=== PATIENT | female | born 1980 ===

== ENCOUNTER 2020-08-18 16:50 | Emergency (ER) | payer MEDICAID, SELFPAY ==
[2020-08-18 17:50] VITALS: BP 108/60; PULSE 85; RESP 16; TEMP 36.7; O2SAT 100; BMI 37.1
--- NOTE | 2020-08-18 19:23 | ED_ITS ---
HPI - Skin/Abscess/Foreign Bdy General Chief complaint: Wound/Laceration <RUI Vargas - Last Filed: 08/18/20 19:29> Stated complaint: ABSCESS <RUI Vargas - Last Filed: 08/18/20 19:29> Time Seen by Provider: 08/18/20 18:51 <RUI Vargas - Last Filed: 08/18/20 19:29> Source: patient <RUI Vargas - Last Filed: 08/18/20 19:29> Mode of arrival: ambulatory <RUI Vargas - Last Filed: 08/18/20 19:29> History of Present Illness HPI narrative: 39 y/o female with right axillary abscess x4 days. History of the same, ususally drains on their own at home but this one is getting more painful. No fever or chills. <RUI Vargas - Last Filed: 08/18/20 19:29> MD complaint: abscess/boil <RUI Vargas - Last Filed: 08/18/20 19:29> Tetanus up to date: yes <RUI Vargas - Last Filed: 08/18/20 19:29> Location: LLE <RUI Vargas - Last Filed: 08/18/20 19:29> Severity: moderate <RUI Vargas - Last Filed: 08/18/20 19:29> Quality: burning and aching <RUI Vargas Last Filed: 08/18/20 19:29> Pain Consistency: constant <RUI Vargas - Last Filed: 08/18/20 19:29> Relieving factors: none <RUI Vargas - Last Filed: 08/18/20 19:29> Exacerbating factors: palpation and movement <RUI Vargas - Last Filed: 08/18/20 19:29> Context: none <RUI Vargas Last Filed: 08/18/20 19:29> Associated symptoms: denies other symptoms <RUI Vargas - Last Filed: 08/18/20 19:29> Treatments prior to arrival: none <RUI Vargas - Last Filed: 08/18/20 19:29> Related Data Home medications: Previous Rx's Medication Instructions Recorded cephalexin [Keflex] 500 mg PO QID #28 cap 08/18/20 doxycycline monohydrate 100 mg PO BID #14 cap 08/18/20 <RUI Vargas - Last Filed: 08/18/20 19:29> Allergies/Adverse reactions: Allergies Allergy/AdvReac Type Severity Reaction Status Date / Time midodrine [MIDODRINE] Allergy Severe HIGHER Verified 08/18/20 19:46 DOSES 40MG NUMBNESS AND SOB lisinopril [LISINOPRIL] Allergy Intermediate UPSET Unverified 08/03/20 16:26 STOMACH <RUI Vargas - Last Filed: 08/18/20 19:29> Review of Systems Review of Systems: Yes all other systems are reviewed and are negative <RUI Vargas - Last Filed: 08/18/20 19:29> [facility] Past Medical History Attestation statement: The following information was validated with the patient. <RUI Vargas - Last Filed: 08/18/20 19:29> Medical History: Medical History (Updated 08/19/20 @ 00:01 by Apollo Barr) Cyst of perianal area <RUI Vargas - Last Filed: 08/18/20 19:29> Surgical History: Surgical History (Updated 08/18/20 @ 17:54 by Renuka Alvarez) History of heart artery stent Tubal ligation status <RUI Vargas - Last Filed: 08/18/20 19:29> Social History Social History: Social History Alcohol intake: never Smoked in Last 30 Days: No Advance Directives: No Advance Directives Information Provided: No <RUI Vargas - Last Filed: 08/18/20 19:29> Physical Exam Vital Signs and I&O and Narrative: Vital Signs and I&O: Vital Signs Temp 98.0 F 08/18/20 17:50 Pulse 85 08/18/20 17:50 Resp 16 08/18/20 17:50 BP 108/60 08/18/20 17:50 Pulse Ox 100 08/18/20 17:50 Intake & Output 1008/18/20 08/19/20 06:59 18:59 06:59 Weight 104.326 kg Body Mass Index 37.1 Appearance: Alert. Oriented X3. No acute distress. Eyes: Pupils equal, round and reactive to light. ENT: Pharynx normal. Neck: Normal inspection. Neck supple. Left axilla: 3cm x3cm tender abscess with fluctuation and surrounding cellultis, no lymphangtiis. full ROM of left arm. NV intact. no evidence of deep tissue infeciton CVS: Normal heart rate and rhythm. Pulses normal. Respiratory: No respiratory distress. Breath sounds normal. Abdomen: Soft and nontender. Skin: Skin warm and dry. Normal skin color. Normal skin turgor. Extremities: No lower extremity edema. No lower extremity edema. Neuro: Oriented X 3. No motor deficit. No sensory deficit. <RUI Vargas Last Filed: 08/18/20 19:29> Vital Signs and I&O: Vital Signs Temp 98.0 F 08/18/20 17:50 Pulse 85 08/18/20 17:50 Resp 16 08/18/20 17:50 BP 108/60 08/18/20 17:50 Pulse Ox 100 08/18/20 17:50 Intake & Output 08/18/20 08/18/20 08/19/20 06:59 18:59 06:59 Weight 104.326 kg Body Mass Index 37.1 <Rian Nicole DO - Last Filed: 08/19/20 02:23> Course Course Hospital Course: left exillary abscess amenable to drainage, see I&D note <RUI Vargas Last Filed: 08/18/20 19:29> Procedures Abscess I/D Site: upper extremity (left axilla ) <RUI Vargas Last Filed: 08/18/20 19:29> Side (if applicable): left <RUI Vargas Last Filed: 08/18/20 19:29> Local Anesthetic: lidocaine 2% <RUI Vargas Last Filed: 08/18/20 19:29> Amount of anesthesia used (mL): 2 <RUI Vargas Last Filed: 08/18/20 19:29> Technique: incised with blade <RUI Vargas - Last Filed: 08/18/20 19:29> Sent for culture/gram staining?: No <RUI Vargas - Last Filed: 08/18/20 19:29> Irrigation: Yes <RUI Vargas - Last Filed: 08/18/20 19:29> Packing used?: none <RUI Vargas - Last Filed: 08/18/20 19:29> MDM - Skin/Abscess/Foreign Bdy Differential Diagnosis Differential diagnosis: Likely abscess of skin or subcutaneous tissue, allergic reaction to drug, cellulitis and insect bites <RUI Vargas - Last Filed: 08/18/20 19:29> Medical Records Attestation: I reviewed the patient's medical records. <RUI Vargas - Last Filed: 08/18/20 19:29> Discharge Plan Discharge Clinical Impression: Abscess <RUI Vargas - Last Filed: 08/18/20 19:29> Patient Disposition: Home, Self-Care <RUI Vargas - Last Filed: 08/18/20 19:29> Instructions: Abscess Incision and Drainage (DC) <RUI Vargas - Last Filed: 08/18/20 19:29> Additional Instructions: Use warm compresses several times per day to help facilitate addtional drainage. Monitor for worsening infection - increased redness, warmth, pain <RUI Vargas - Last Filed: 08/18/20 19:29> Prescriptions: New doxycycline monohydrate 100 mg capsule 100 mg PO BID Qty: 14 RF: 0 cephalexin [Keflex] 500 mg capsule 500 mg PO QID Qty: 28 RF: 0 <RUI Vargas - Last Filed: 08/18/20 19:29> Interventions: ED Discharge Assessment Last Done: 08/18/20 19:49 <RUI Vargas - Last Filed: 08/18/20 19:29> Discharge Date/Time: 08/18/20 19:50 <RUI Vargas - Last Filed: 08/18/20 19:29>
[2020-08-18] MEDS: Lidocaine HCl 2 % MPF 5 ML VIAL INFILTRATI (19:47)
[2020-08-18] MEDS: cephALEXin 500 MG CAPSULE PO (19:48)
== END 2020-08-18 19:50 | disposition home or self-care (01) ==
PROVIDERS: Emergency Provider Emergency Medicine; PCP Internal Medicine
DX: L02.412 Cutaneous abscess of left axilla (principal)
CPT/HCPCS: 10060; 99283; 99284

== ENCOUNTER 2020-08-22 11:02 | Emergency (ER) | payer MEDICAID, SELFPAY ==
[2020-08-22 11:09] VITALS: BP 111/76; PULSE 79; RESP 16; TEMP 36.3; O2SAT 99; BMI 37.1
--- NOTE | 2020-08-22 11:22 | ED_ITS ---
HPI - Skin/Abscess/Foreign Bdy General Chief complaint: Skin/Abscess/Foreign Body Stated complaint: wound check Time Seen by Provider: 08/22/20 11:15 Source: patient Mode of arrival: ambulatory Limitations: no limitations History of Present Illness HPI narrative: Pt tells me she was seen here friday for abscess to left axillae. She had an I&D and was started in keflex and doxycyline. Denies fevers/chills/erythema. Tells me she still feels a bump underneath the skin MD complaint: abscess/boil Onset (ago): day(s) Tetanus up to date: yes Location: LUE Severity: mild Related Data Previous Rx's Medication Instructions Recorded cephalexin [Keflex] 500 mg PO QID #28 cap 08/18/20 doxycycline monohydrate 100 mg PO BID #14 cap 08/18/20 Allergies Allergy/AdvReac Type Severity Reaction Status Date / Time midodrine [MIDODRINE] Allergy Severe HIGHER Verified 08/18/20 19:46 DOSES 40MG NUMBNESS AND SOB lisinopril [LISINOPRIL] Allergy Intermediate UPSET Unverified 08/03/20 16:26 STOMACH Review of Systems Review of Systems: Yes all other systems are reviewed and are negative Constitutional: Constitutional: Reports no additional constitutional complaints, Denies body ache(s), Denies chills, Denies fever(s) and Denies weakness Eyes: Eyes: Reports no additional eye complaints and Denies blurry vision ENT: Reports system reviewed and no additional complaints, except as documented, Denies dizziness, Denies nasal congestion and Denies nasal discharge Cardiovascular: Cardiovascular: Reports no additional cardiovascular complaints, Denies chest pain, Denies leg edema and Denies dyspnea Respiratory: Respiratory: Reports no additional respiratory complaints, Denies cough and Denies dyspnea Gastrointestinal: Gastrointestinal: Reports no additional gastrointestinal complaints, Denies abdominal pain, Denies diarrhea, Denies nausea and Denies vomiting Musculoskeletal: Musculoskeletal: Reports no additional musculoskeletal complaints, Denies back pain, Denies myalgias, Denies arthralgias, Denies joint swelling, Denies numbness and Denies tingling Integumentary/Breasts: Skin/Breast: Reports system reviewed and no additional complaints, except as docu and Denies rash Neurologic: Reports system reviewed and no additional complaints, except as documented, Denies Abnormal speech present, Denies dizziness, Denies numbness, Denies tingling and Denies weakness PMF Past Medical History Attestation statement: The following information was validated with the patient. Source: obtained from family and nursing notes reviewed Medical History Cyst of perianal area Surgical History History of heart artery stent Tubal ligation status Social History Social History Alcohol intake: never Smoking Status: Never smoker Use of substances other than those prescribed or required for medical reasons: No Advance Directives: No Advance Directives Information Provided: Yes Physical Exam Vital Signs and I&O and Narrative: Vital Signs and I&O: Vital Signs Temp 97.3 F 08/22/20 11:09 Pulse 79 08/22/20 11:09 Resp 16 08/22/20 11:09 BP 111/76 08/22/20 11:09 Pulse Ox 99 08/22/20 11:09 Intake & Output 08/21/20 08/22/20 08/22/20 18:59 06:59 18:59 Weight 104.326 kg Body Mass Index 37.1 Const: General: cooperative, healthy appearing, comfortable and no acute distress Orientation/consciousness: patient oriented x3 Limitations: no limitations HENMT: Head: Yes normal to inspection Ears: hearing grossly normal bilaterally General nose exam: Normal external nose present Face and sinus: Yes normal facial exam Mouth: Normal oral and palatal mucosa present Throat: Yes posterior oropharynx normal Eyes: General: appearance normal, both eyes and all related structures Pupils: Equal, round and reactive pupils present Neck: Neck: Yes normal visual inspection Chest: Chest palpation & inspection: normal inspection of the chest Resp: Effort & Inspection: normal respiratory effort Auscultation: clear to auscultation bilaterally Cardio: Rate: regular rate Rhythm: regular rhythm Peripheral pulses: Peripheral pulses 2+ throughout GI: Inspection: Yes normal to inspection Palpation (GI): Soft to palpation and nontender Auscultation: normal bowel sounds Back/Spine/Pelvis: Thoracic/Lumbar Spine: thoracic and lumbar spine normal to inspection Skin: Other: firm abscess noted at left axillae. No fluctuance, erythema or induration. General skin exam: no rashes or lesions noted Neuro: General: patient oriented x3, no focal motor deficits and normal sensation to monofilament Cranial nerves: Yes Equal, round and reactive pupils present Cognition (Neuro): normal cognition Speech: No Abnormal speech present Gait exam (Neuro): Normal gait present Motor exam (neuro): 5/5 motor strength present throughout Extrem: General: Yes normal to inspection MDM - Skin/Abscess/Foreign Bdy MDM Narrative Medical decision making narrative: Patient has continued abscess at left axillae. No fluctuance/pointing or surround erythema. Cannot I&D at this point. Has not been doing warm compresses. Recommend this and continuing antibiotics. Patient tells me recurrent abscesses in axilla. Will refer to surgery. Reviewed worrisome signs/symptoms with patient and when to return to ED. Comfortable with discharge home. Discharge Plan Discharge Clinical Impression: Abscess of skin or subcutaneous tissue Qualifiers: Site of cutaneous abscess of extremity: axilla Laterality: left Patient Disposition: Home, Self-Care Instructions: Abscess Follow-up (ED), Hidradenitis Suppurativa (ED) Additional Instructions: Continue your antibiotics Warm compresses with tea bag or warm washcloth 4 times daily Prescriptions: No Action doxycycline monohydrate 100 mg capsule 100 mg PO BID Qty: 14 RF: 0 cephalexin [Keflex] 500 mg capsule 500 mg PO QID Qty: 28 RF: 0 Referrals: Eugenie Gonzales MD [Physician] - 5 days Print Language: Armenian
== END 2020-08-22 11:31 | disposition home or self-care (01) ==
PROVIDERS: Emergency Provider Emergency Medicine; PCP Internal Medicine
DX: L02.412 Cutaneous abscess of left axilla (principal); M79.602 Pain in left arm
CPT/HCPCS: 99282; 99284

== ENCOUNTER 2020-09-25 08:49 | Emergency (ER) | payer MEDICAID, SELFPAY ==
--- NOTE | 2020-09-25 08:58 | ED.URI ---
HPI - URI/Sore Throat General Chief Complaint: Fever Stated Complaint: covid test Time Seen by Provider: 09/25/20 08:56 Source: patient Mode of arrival: ambulatory Limitations: no limitations History of Present Illness MD elicited complaint: fever and nasal congestion Onset (ago): week(s) (1) Consistency: constant Severity: moderate Description of mucous: clear Able to tolerate fluids by mouth: Yes Associated symptoms: fever, myalgias, headache, rhinorrhea and diarrhea Treatments prior to arrival: acetaminophen and cold medicine Related Data Previous Rx's Medication Instructions Recorded cephalexin [Keflex] 500 mg PO QID #28 cap 08/18/20 doxycycline monohydrate 100 mg PO BID #14 cap 08/18/20 ibuprofen 600 mg PO Q6H PRN #30 tab 09/25/20 Allergies Allergy/AdvReac Type Severity Reaction Status Date / Time midodrine [MIDODRINE] Allergy Severe HIGHER Verified 08/18/20 19:46 DOSES 40MG NUMBNESS AND SOB lisinopril [LISINOPRIL] Allergy Intermediate UPSET Unverified 08/03/20 16:26 STOMACH Review of Systems Review of Systems: Constitutional : positive Fever, positive Chills, positive fatigue, positive Malaise ENT/Mouth : no sore throat, positive runny nose Eyes: No Discharge Cardiovascular : No Chest Pain, pos SOB Respiratory : No Cough, No Sputum Gastrointestinal : No Nausea, No Vomiting, pos Diarrhea Genitourinary : No Dysuria, No Urinary Frequency Musculoskeletal : positive Myalgia Skin : No rash Neuro : pos Headache All other systems reviewed and are negative REPLACED BY [facility] Past Medical History Attestation statement: The following information was validated with the patient. Medical History CHF (congestive heart failure) Cyst of perianal area Surgical History History of heart artery stent Tubal ligation status Social History Social History Alcohol intake: never Smoking Status: Never smoker Advance Directives: No Advance Directives Information Provided: No Physical Exam Vital Signs: Vital Signs: Last Vital Signs Temp 100.2 F 09/25/20 09:20 Pulse 113 H 09/25/20 09:20 Resp 20 09/25/20 09:20 BP 102/68 09/25/20 09:20 Pulse Ox 98 09/25/20 09:20 Body Mass Index 37.1 Appearance: Alert. Oriented X3. No acute distress. Eyes: Pupils equal, round and reactive to light. ENT: Pharynx normal. Neck: Normal inspection. Neck supple. CVS: Normal heart rate and rhythm. Pulses normal. Respiratory: No respiratory distress. Breath sounds normal. Abdomen: Soft and nontender. Skin: Skin warm and dry. Normal skin color. Normal skin turgor. Extremities: No lower extremity edema. Normal ROM Neuro: Oriented X 3. No motor deficit. No sensory deficit. Course Course Course Narrative: clear lungs, CXR negative, PO medications, no hypoxia MDM - URI/Sore Throat MDM Narrative Medical decision making narrative: 39 yo female with CHF here with 1 week of fevers, myalgias, URI, diarrhea x 1 - likely viral in nature, COVID test ordered, also c/o some fatigue and feeling short of breath, no hypoxia ECG Data Attestation: I personally reviewed and interpreted this ECG as follows: ECG interpretation date: 09/25/20 ECG interpretation time: 09:32 Interpretation: Rate: 99 Rhythm: NSR [place]: normal Normal P waves. Normal PAUL. low voltage QRS complex. ST T wave : nonspecific qTC: normal prior studies: no change 2017 The study has been interpreted contemporaneously by me. . Discharge Plan Discharge Clinical Impression: Viral infection Patient Disposition: Home, Self-Care Instructions: COVID-19 (Coronavirus Disease 2019) (ED) Additional Instructions: return to ED for any worsening symptoms or concerns you were tested for COVID we will call you with results in 2 to 4 days, wear a mask, socially distance YOUR SYMPTOMS ARE VERY CONCERNING FOR COVID - RETURN IF YOU HAVE A HARD TIME BREATHING YOUR CHEST XRAY AND EKG WERE UNREMARKABLE Prescriptions: New ibuprofen 600 mg tablet 600 mg PO Q6H PRN (Reason: pain) Qty: 30 RF: 0 No Action doxycycline monohydrate 100 mg capsule 100 mg PO BID Qty: 14 RF: 0 cephalexin [Keflex] 500 mg capsule 500 mg PO QID Qty: 28 RF: 0 Referrals: Negra Foster MD [Primary Care Provider] - 2 days (if not better)
--- NOTE | 2020-09-25 09:05 | XR_ITS ---
EXAMINATION: XR CHEST CLINICAL INFORMATION: Cough COMPARISON: Chest radiographs 11/05/2017, 06/03/2015 TECHNIQUE: Portable upright AP view of the chest was obtained. FINDINGS: The lungs appear clear with no airspace consolidation or definite groundglass opacity. Heart is within normal size. The vascularity is normal. There is no effusion. The hilar and mediastinal contours and bony structures are unremarkable. XR/XR chest 1V IMPRESSION: Unremarkable examination.
--- NOTE | 2020-09-25 09:05 | ECG_ITS ---
Test Reason : PAIN Blood Pressure : / mmHG Vent. Rate : 099 BPM Atrial Rate : 099 BPM P-R Int : 120 ms QRS Dur : 076 ms QT Int : 328 ms P-R-T Axes : 008 -25 003 degrees QTc Int : 420 ms Normal sinus rhythm Low voltage QRS Inferior infarct (cited on or before 28-MAR-2011) Cannot rule out Anterior infarct (cited on or before 04-DEC-2009) Nonspecific T wave abnormality Anterolateral leads Abnormal ECG When compared with ECG of 05-NOV-2017 20:31, T wave inversion less evident in Anterior leads Referred By: Doretha Echevarria Electronically Signed By:KIAH DALAL MD
[2020-09-25 09:20] VITALS: BP 102/68; PULSE 113; RESP 20; TEMP 37.9; O2SAT 98; BMI 37.1
[2020-09-25] MEDS: Ibuprofen 400 MG TABLET PO (10:13)
[2020-09-25] MEDS: Acetaminophen 325 MG TABLET 650 MG PO (10:14)
== END 2020-09-25 10:34 | disposition home or self-care (01) ==
PROVIDERS: Emergency Provider Emergency Medicine; PCP Internal Medicine
DX: B34.9 Viral infection, unspecified (principal); R50.9 Fever, unspecified; Z20.828 Contact with and (suspected) exposure to other viral communicable diseases; Z79.899 Other long term (current) drug therapy
CPT/HCPCS: 71045; 93005; 99283; U0003

== ENCOUNTER 2021-03-19 17:41 | Emergency (ER) | payer MEDICAID, SELFPAY ==
[2021-03-19 18:03] VITALS: BP 129/72; PULSE 90; RESP 16; TEMP 37.2; O2SAT 100; BMI 36.3
--- NOTE | 2021-03-19 21:27 | ED_ITS ---
HPI - URI/Sore Throat General Chief Complaint: Upper Respiratory Symptoms Stated Complaint: stuffy nose, weakness Time Seen by Provider: 03/19/21 21:21 Source: patient Mode of arrival: ambulatory Limitations: no limitations History of Present Illness HPI Narrative: Patient comes emergency room complaining nasal congestion for 2 days, and mild sore throat for a few hours. Patient denies fever, no chills, denies any previous respiratory illnesses. Denies cough, no chest pain, no shortness of breath. MD elicited complaint: sore throat and nasal congestion Related Data Previous Rx's Medication Instructions Recorded cephalexin [Keflex] 500 mg PO QID #28 cap 08/18/20 doxycycline monohydrate 100 mg PO BID #14 cap 08/18/20 ibuprofen 600 mg PO Q6H PRN #30 tab 09/25/20 fluticasone propionate [Flonase 1 spray INTRANASAL Q12H #16 g 03/19/21 Allergy Relief] Allergies Allergy/AdvReac Type Severity Reaction Status Date / Time midodrine [MIDODRINE] Allergy Severe HIGHER Verified 03/19/21 18:03 DOSES 40MG NUMBNESS AND SOB lisinopril [LISINOPRIL] Allergy Intermediate UPSET Verified 03/19/21 18:03 STOMACH Review of Systems Review of Systems: Constitutional : No Weight loss, No Fever, No Chills, No Night Sweats, No Fatigue, No Malaise ENT/Mouth : No Hearing loss, No Ear Pain, complaining of Nasal Congestion, No Sinus Pain, No Hoarseness, mild sore throat, No Rhinorrhea, No Swallowing Difficulty Eyes: No Eye Pain, No Swelling, No Redness, No Foreign Body, No Discharge, No Vision Changes Cardiovascular : No Chest Pain, No SOB, No Dyspnea on Exertion, No Orthopnea, No Edema, No Palpitations Respiratory : No Cough, No Sputum, No Wheezing, No Smoke Exposure, No Dyspnea Gastrointestinal : No Nausea, No Vomiting, No Diarrhea, No Constipation, No abdominal Pain, No Hematochezia, No Melena Genitourinary : no irregular bleeding, No Dysuria, No Urinary Frequency, No Hematuria, No Urinary Incontinence, No Urgency, No Flank Pain, No Urinary Flow Changes, No Hesitancy Musculoskeletal : No joint pain, No Myalgias, No Joint Swelling Skin : No Skin Lesions, No rash Neuro : No Weakness, No Numbness, No Paresthesias, No Loss of Consciousness, No Dizziness, No Headache Psych : No Anxiety/Panic, No Depression, No SI/HI/AH/VH, No Social Issues, Heme/Lymph: No Bruising, No Bleeding,No Lymphadenopathy Endocrine : No Polyuria, No Polydipsia, No Temperature Intolerance [facility] Past Medical History Medical History CHF (congestive heart failure) Cyst of perianal area Surgical History History of heart artery stent Tubal ligation status Social History Social History Alcohol intake: never Smoking Status: Never smoker Advance Directives: No Advance Directives Information Provided: Yes Patient : No Physical Exam Vital Signs: Vital Signs: Last Vital Signs Temp 98.9 F 03/19/21 18:03 Pulse 90 03/19/21 18:03 Resp 16 03/19/21 18:03 BP 129/72 03/19/21 18:03 Pulse Ox 100 03/19/21 18:03 Body Mass Index 36.3 Appearance: Alert. Oriented X3. No acute distress. Eyes: Pupils equal, round and reactive to light. ENT: Pharynx normal. Showed no exudates, no abscesses. Nasal congestion Neck: Normal inspection. Neck supple. No lymph nodes noted. No crepitus CVS: Normal heart rate and rhythm. Pulses normal. Normal S1 and S2 Respiratory: No respiratory distress. Breath sounds normal. No Wheezing. No rales Abdomen: Soft and nontender. No rigidity. No distention. good BS x4 Skin: Skin warm and dry. Normal skin color. Normal skin turgor. Extremities: No lower extremity edema. No lower extremity edema. No Lacerations. No Rash Neuro: Oriented X 3. No motor deficit. No sensory deficit. Moving all extermities. No slurred speech. Course Course Course Narrative: Patient likely having a viral upper respiratory infection, COVID-19 test negative. MDM - URI/Sore Throat Lab Data Labs: Lab Results 03/19/21 Range/Units 21:36 Coronavirus (PCR) NEGATIVE (Negative) Influenza Type A (PCR) NEGATIVE (Negative) Influenza Type B (PCR) NEGATIVE (Negative) RSV RNA Qual (PCR) NEGATIVE (Negative) Discharge Plan Discharge Clinical Impression: Viral URI Patient Disposition: Home, Self-Care Instructions: Viral Syndrome (ED) Additional Instructions: Please follow-up with your primary care physician tomorrow. If you have any worsening or new symptoms, please return to the emergency room or call 911 Prescriptions: New fluticasone propionate [Flonase Allergy Relief] 50 mcg/actuation spray,suspension 1 spray intranasal Q12H Qty: 16 RF: 0 No Action doxycycline monohydrate 100 mg capsule 100 mg PO BID Qty: 14 RF: 0 cephalexin [Keflex] 500 mg capsule 500 mg PO QID Qty: 28 RF: 0 ibuprofen 600 mg tablet 600 mg PO Q6H PRN (Reason: pain) Qty: 30 RF: 0
[2021-03-19 22:23] LABS: Influenza A PCR NEGATIVE (Negative); Influenza B PCR NEGATIVE (Negative); Resp Syncy Virus RNA Qual PCR NEGATIVE (Negative); SARS COV2 PCR INHOUSE NEGATIVE (Negative)
== END 2021-03-19 22:38 | disposition home or self-care (01) ==
PROVIDERS: Emergency Provider Emergency Medicine; PCP Internal Medicine
DX: J06.9 Acute upper respiratory infection, unspecified (principal); R09.81 Nasal congestion; Z20.822 Contact with and (suspected) exposure to COVID-19; Z79.899 Other long term (current) drug therapy
CPT/HCPCS: 0241U; 36415; 99283

== ENCOUNTER 2021-05-07 16:48 | Emergency (ER) | payer MEDICAID, SELFPAY ==
[2021-05-07 16:54] VITALS: BP 109/69; PULSE 95; RESP 18; TEMP 36.6; O2SAT 99; BMI 36.9
--- NOTE | 2021-05-07 18:00 | ED.SKABFB ---
HPI - Skin/Abscess/Foreign Bdy General Chief complaint: Skin/Abscess/Foreign Body Stated complaint: Spider bite to breast Time Seen by Provider: 05/07/21 17:45 Source: patient Mode of arrival: ambulatory Limitations: no limitations History of Present Illness HPI narrative: Patient comes emergency room complaining of an abscess on the right breast. Patient believes that this is a spider bite, states she has had them before multiple times. Patient states her gets them as well. Patient has a small abscesses that is mildly draining for the last 3 days. Patient complaining of localized pain, no fever or chills. No other wounds Related Data Previous Rx's Medication Instructions Recorded cephalexin [Keflex] 500 mg PO QID #28 cap 08/18/20 doxycycline monohydrate 100 mg PO BID #14 cap 08/18/20 ibuprofen 600 mg PO Q6H PRN #30 tab 09/25/20 fluticasone propionate [Flonase 1 spray INTRANASAL Q12H #16 g 03/19/21 Allergy Relief] cephalexin [Keflex] 750 mg PO BID #14 cap 05/07/21 doxycycline hyclate 100 mg PO BID #14 tab 05/07/21 Allergies Allergy/AdvReac Type Severity Reaction Status Date / Time midodrine [MIDODRINE] Allergy Severe HIGHER Verified 03/19/21 18:03 DOSES 40MG NUMBNESS AND SOB lisinopril [LISINOPRIL] Allergy Intermediate UPSET Verified 03/19/21 18:03 STOMACH Review of Systems Review of Systems: Constitutional : No Weight loss, No Fever, No Chills, No Night Sweats, No Fatigue, No Malaise ENT/Mouth : No Hearing loss, No Ear Pain, No Nasal Congestion, No Sinus Pain, No Hoarseness, No sore throat, No Rhinorrhea, No Swallowing Difficulty Eyes: No Eye Pain, No Swelling, No Redness, No Foreign Body, No Discharge, No Vision Changes Cardiovascular : No Chest Pain, No SOB, No Dyspnea on Exertion, No Orthopnea, No Edema, No Palpitations Respiratory : No Cough, No Sputum, No Wheezing, No Smoke Exposure, No Dyspnea Gastrointestinal : No Nausea, No Vomiting, No Diarrhea, No Constipation, No abdominal Pain, No Hematochezia, No Melena Genitourinary : no irregular bleeding, No Dysuria, No Urinary Frequency, No Hematuria, No Urinary Incontinence, No Urgency, No Flank Pain, No Urinary Flow Changes, No Hesitancy Musculoskeletal : No joint pain, No Myalgias, No Joint Swelling Skin : Abscess on the right breast Neuro : No Weakness, No Numbness, No Paresthesias, No Loss of Consciousness, No Dizziness, No Headache Psych : No Anxiety/Panic, No Depression, No SI/HI/AH/VH, No Social Issues, Heme/Lymph: No Bruising, No Bleeding,No Lymphadenopathy Endocrine : No Polyuria, No Polydipsia, No Temperature Intolerance [facility] Past Medical History Medical History CHF (congestive heart failure) Cyst of perianal area Surgical History History of heart artery stent Tubal ligation status Social History Social History Alcohol intake: never Advance Directives: No Advance Directives Information Provided: Yes Patient : No Physical Exam Vital Signs: Vital Signs: Last Vital Signs Temp 98 F 05/07/21 16:54 Pulse 95 05/07/21 16:54 Resp 18 05/07/21 16:54 BP 109/69 05/07/21 16:54 Pulse Ox 99 05/07/21 16:54 Body Mass Index 36.9 Appearance: Alert. Oriented X3. No acute distress. Eyes: Pupils equal, round and reactive to light. ENT: Pharynx normal. Neck: Normal inspection. Neck supple. No lymph nodes noted. No crepitus CVS: Normal heart rate and rhythm. Pulses normal. Normal S1 and S2 Respiratory: No respiratory distress. Breath sounds normal. No Wheezing. No rales Abdomen: Soft and nontender. No rigidity. No distention. good BS x4 Skin: Skin warm and dry. On the breath, there is a 0.5 cm small ulceration, draining small amount of pus, surrounding erythema 1 cm around ulceration. Extremities: No lower extremity edema. No lower extremity edema. No Lacerations. No Rash Neuro: Oriented X 3. No motor deficit. No sensory deficit. Moving all extermities. No slurred speech. Course Course Course Narrative: Bedside ultrasound shows that the of this is fairly superficial, the abscess was drained by breaking the skin with the tip of the needle, small amount of pus was drained. Patient will start antibiotics. Procedures Abscess I/D Site: other (Right breast) Side (if applicable): right Technique: other (Incise the tip of the needle G 18) Amount of fluid expressed (mL): 0 Sent for culture/gram staining?: No Irrigation: No Packing used?: none Complications: other Discharge Plan Discharge Clinical Impression: Abscess of skin or subcutaneous tissue Qualifiers: Site of cutaneous abscess: other site Qualified Code(s): L02.818 - Cutaneous abscess of other sites Patient Disposition: Home, Self-Care Instructions: Abscess (ED) Prescriptions: New cephalexin [Keflex] 750 mg capsule 750 mg PO BID Qty: 14 RF: 0 doxycycline hyclate 100 mg tablet 100 mg PO BID Qty: 14 RF: 0 No Action doxycycline monohydrate 100 mg capsule 100 mg PO BID Qty: 14 RF: 0 cephalexin [Keflex] 500 mg capsule 500 mg PO QID Qty: 28 RF: 0 ibuprofen 600 mg tablet 600 mg PO Q6H PRN (Reason: pain) Qty: 30 RF: 0 fluticasone propionate [Flonase Allergy Relief] 50 mcg/actuation spray,suspension 1 spray intranasal Q12H Qty: 16 RF: 0
== END 2021-05-07 18:25 | disposition home or self-care (01) ==
PROVIDERS: Emergency Provider Emergency Medicine; PCP Internal Medicine
DX: N61.1 Abscess of the breast and nipple (principal)
CPT/HCPCS: 10060; 99283; 99284

== ENCOUNTER 2022-03-07 13:42 | Outpatient (REF) | payer MEDICAID, SELFPAY ==
[2022-03-07 14:27] LABS: COVID-19 Test Negative (Negative); IDNOW Serial# 16C4AD1C
== END 2022-03-07 13:43 | disposition home or self-care (01) ==
LOC: HO.LAB 13:42
PROVIDERS: Visit Provider Internal Medicine
DX: Z20.822 Contact with and (suspected) exposure to COVID-19 (principal)
CPT/HCPCS: 87635; C9803

== ENCOUNTER 2022-07-23 11:31 | Emergency (ER) | payer MEDICAID, SELFPAY ==
--- NOTE | ~2022-07-23 | XR_ITS ---
EXAMINATION: XR KNEE, LEFT CLINICAL INFORMATION: Knee pain COMPARISON: None TECHNIQUE: Two views of the left knee. FINDINGS: Marginal spurring in the medial compartment. Joint spaces are maintained. No evidence of acute fracture or dislocation. No significant effusion. XR/XR knee LT 2V IMPRESSION: No radiographic evidence of acute fracture. Mild medial compartment degeneration..
[2022-07-23 12:14] VITALS: BP 124/77; PULSE 83; RESP 18; TEMP 36.3; O2SAT 98; BMI 37.8
--- NOTE | 2022-07-23 15:32 | ED_ITS ---
HPI - Extremity Injury (Lower) General Chief Complaint: Extremity Injury, Lower Stated Complaint: L knee pain Time Seen by Provider: 07/23/22 15:31 Source: patient Mode of arrival: ambulatory Limitations: no limitations History of Present Illness HPI Narrative: 41-year-old female presents to the ER for left lateral knee pain for the last 4-6 weeks. She denies any trauma or injury. She states the pain is located on the outside of her left knee, it is worse at night after she standing on her feet most of the day at work. She reports pain with bending and pain at night when she tries to sleep. She denies any swelling. She denies any giving out of the knee. She does not have a history of knee problems in the past. She has not been taking any medications for this. MD complaint: knee injury Onset (ago): week(s) Injury: Left: knee Type of Injury: unknown Severity: moderate Severity scale (1-10): 6 Relieving factors: immobilization and rest Exacerbating factors: weight bearing, movement and palpation Associated symptoms: ambulatory Other symptoms: none Related Data Previous Rx's Medication Instructions Recorded cephalexin 500 mg capsule (Keflex) 500 mg PO QID #28 caps 08/18/20 doxycycline monohydrate 100 mg 100 mg PO BID #14 caps 08/18/20 capsule ibuprofen 600 mg tablet 600 mg PO Q6H PRN pain #30 tabs 09/25/20 fluticasone propionate 50 1 spray intranasal Q12H #16 grams 03/19/21 mcg/actuation nasal spray,suspension (Flonase Allergy Relief) cephalexin 750 mg capsule (Keflex) 750 mg PO BID #14 caps 05/07/21 doxycycline hyclate 100 mg tablet 100 mg PO BID #14 tabs 05/07/21 Allergies Allergy/AdvReac Type Severity Reaction Status Date / Time midodrine [MIDODRINE] Allergy Severe HIGHER Verified 07/23/22 12:14 DOSES 40MG NUMBNESS AND SOB lisinopril [LISINOPRIL] AdvReac Intermediate UPSET Verified 07/23/22 12:14 STOMACH Review of Systems Review of Systems: Constitutional: No Fever, No Chills Cardiovascular: No Chest Pain, No SOB Gastrointestinal: No Nausea, No Vomiting Musculoskeletal: + joint pain, No Myalgias Skin: No Skin Lesions, No rash Neuro: No Weakness, No Numbness Psych: No Anxiety/Panic, No Depression Heme/Lymph: No Bruising, No Lymphadenopathy PMFSH Past Medical History Medical History CHF (congestive heart failure) Cyst of perianal area Surgical History History of heart artery stent Tubal ligation status Social History Social History Alcohol intake: never Advance Directives: No Advance Directives Information Provided: No Physical Exam Vital Signs: Vital Signs: Last Vital Signs Temp 97.3 F 07/23/22 12:14 Pulse 83 07/23/22 12:14 Resp 18 07/23/22 12:14 BP 124/77 07/23/22 12:14 Pulse Ox 98 07/23/22 12:14 O2 Del Method 07/23/22 12:14 BMI result Body Mass Index 37.8 Appearance: Alert. Oriented X3. No acute distress. HEENT: normal inspection CVS: Normal heart rate and rhythm. Pulses normal. Respiratory: No respiratory distress. Skin: Skin warm and dry. Normal skin color. Normal skin turgor. No rashes. Extremities: Normal inspection of bilateral knees. Normal passive and active range of motion. Pain with full flexion. negative anterior drawer. pain with valgus stress. Neuro: Oriented X 3. No motor deficit. No sensory deficit. Steady gait Course Course Course Narrative: 41-year-old female presenting to the ER with left lateral knee pain for the last 4-6 weeks, unknown injury. On examination she has full range of motion. No joint laxity appreciated. X-ray showing some mild medial compartment degeneration no acute fracture, no effusion. Will place an Braeden wrap for compression and support. Will refer to orthopedics for further evaluation & workup. Patient agrees with plan. Stable for DC home Critical Care Time Critical Care Time Critical Care Time: No Discharge Plan Discharge Clinical Impression: Knee pain Patient Disposition: Home, Self-Care Instructions: Knee Pain (ED) Additional Instructions: your x-ray today showed no radiographic evidence of acute fracture. mild medial compartment degeneration. Recommend wearing the provided Braeden wrap for compression and support, or you can get an [id number] knee brace at your local pharmacy. Take the prescribed anti-inflammatory as needed for pain. Recommend ice, elevation. recommend following up with orthopedics for further evaluation. Call their office to arrange an appointment. Prescriptions: No Action cephalexin [Keflex] 750 mg capsule 750 mg PO BID Qty: 14 0RF doxycycline hyclate 100 mg tablet 100 mg PO BID Qty: 14 0RF doxycycline monohydrate 100 mg capsule 100 mg PO BID Qty: 14 0RF cephalexin [Keflex] 500 mg capsule 500 mg PO QID Qty: 28 0RF ibuprofen 600 mg tablet 600 mg PO Q6H PRN (Reason: pain) Qty: 30 0RF fluticasone propionate [Flonase Allergy Relief] 50 mcg/actuation spray,suspension 1 spray intranasal Q12H Qty: 16 0RF Rx Instructions: administer into each nostril [place] [facility] [place] Group] Interventions: ED Discharge Assessment Last Done: 07/23/22 16:19 Discharge Date/Time: 07/23/22 16:21
== END 2022-07-23 16:21 | disposition home or self-care (01) ==
PROVIDERS: Emergency Provider Emergency Medicine; PCP Internal Medicine
DX: M25.562 Pain in left knee (principal); Z79.899 Other long term (current) drug therapy
CPT/HCPCS: 73560; 99283

== ENCOUNTER 2022-08-02 07:52 | Outpatient (REF) | payer MEDICAID, SELFPAY ==
--- NOTE | ~2022-08-02 | XR_ITS ---
EXAMINATION: XR KNEE, LEFT XR KNEE AP STANDING CLINICAL INFORMATION: Pain. COMPARISON: Radiographs dated 07/23/2022. TECHNIQUE: Axial view of the right knee. AP bilateral standing view of the knees was obtained. FINDINGS: Bones and soft tissues are normal. No fracture or dislocation is seen bilaterally. Alignment is anatomic, without varus or valgus configuration noted. The bilateral lateral and the right medial joint space compartments are well-maintained. There is very mild narrowing and peripheral osteophyte formation of the medial joint space compartment of the left knee. No abnormal soft tissue calcification. XR/XR knee standing BI IMPRESSION: 1. There is very mild osteoarthritic change of the medial joint space compartment of the left knee. 2. Unremarkable AP standing view of the right knee.
--- NOTE | ~2022-08-02 | XR_ITS ---
EXAMINATION: XR KNEE, LEFT XR KNEE AP STANDING CLINICAL INFORMATION: Pain. COMPARISON: Radiographs dated 07/23/2022. TECHNIQUE: Axial view of the right knee. AP bilateral standing view of the knees was obtained. FINDINGS: Bones and soft tissues are normal. No fracture or dislocation is seen bilaterally. Alignment is anatomic, without varus or valgus configuration noted. The bilateral lateral and the right medial joint space compartments are well-maintained. There is very mild narrowing and peripheral osteophyte formation of the medial joint space compartment of the left knee. No abnormal soft tissue calcification. XR/XR knee LT 1V IMPRESSION: 1. There is very mild osteoarthritic change of the medial joint space compartment of the left knee. 2. Unremarkable AP standing view of the right knee.
== END 2022-08-02 07:53 | disposition home or self-care (01) ==
LOC: HO.HOSX 07:52
PROVIDERS: Visit Provider Physician Assistant
DX: M17.12 Unilateral primary osteoarthritis, left knee (principal); M25.561 Pain in right knee
CPT/HCPCS: 73560; 73565; 99202

== ENCOUNTER 2022-12-25 12:10 | Outpatient (REF) | payer MEDICAID, SELFPAY ==
--- NOTE | ~2022-12-25 | MM_ITS ---
EXAMINATION: MM SCREENING DIGITAL BREAST TOMOSYNTHESIS, BILATERAL CLINICAL INFORMATION: Screening. Asymptomatic. The lifetime risk of breast cancer based on the Tyrer-Cuzick Model is 8.1%. COMPARISON: Mammography: None TECHNIQUE: Digital breast tomosynthesis is performed in both the craniocaudal and mediolateral oblique views along with computer-aided detection (CAD). Synthesized 2D images are generated from the tomosynthesis. FINDINGS: There are scattered areas of fibroglandular density (ACR BI-RADS breast composition Category b). There are no significant masses, abnormal calcifications, or other abnormalities. MM/MM tomosynthesis screening BI IMPRESSION: No mammographic evidence of malignancy. ASSESSMENT: BI-RADS 1: Negative RECOMMENDATION: Routine annual mammography screening. This patient's information was entered into a reminder system with a target due date for their next mammogram.
== END 2022-12-25 12:11 | disposition home or self-care (01) ==
LOC: HO.MAMMO 12:10
PROVIDERS: PCP Internal Medicine; Visit Provider Internal Medicine
DX: Z12.31 Encounter for screening mammogram for malignant neoplasm of breast (principal)
CPT/HCPCS: 77063; 77067

== ENCOUNTER 2023-01-16 08:01 | Emergency (ER) | payer MEDICAID, SELFPAY ==
--- NOTE | ~2023-01-16 | XR_ITS ---
EXAMINATION: XR KNEE, LEFT CLINICAL INFORMATION: Left knee pain. COMPARISON: None TECHNIQUE: Four views of the left knee. FINDINGS: Bones and soft tissues are normal. No fracture or joint effusion. Alignment is anatomic. Joint spaces are well maintained. No abnormal soft tissue calcification. XR/XR knee LT 3V IMPRESSION: Unremarkable left knee.
[2023-01-16 08:17] VITALS: BP 124/72; PULSE 78; RESP 16; TEMP 36.3; O2SAT 98; BMI 37.8
--- NOTE | 2023-01-16 10:43 | ED_ITS ---
HPI - Extremity Problem General Chief complaint: Extremity Problem Stated complaint: L knee pain/back pain Time Seen by Provider: 01/16/23 10:34 Source: patient and old records reviewed Mode of arrival: ambulatory Limitations: no limitations History of Present Illness HPI Narrative: 42 yo female presents to the ER for evaluation of acute on chronic, nontraumatic left knee pain. 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 She has worked a lot more in the last 2 weeks. She states the pain is in both the inside and outside of the knee. She reports intermittent swelling. She has been taking Tylenol with no improvement, cannot take NSAIDS due to being on Plavix. She saw orthopedics in July and was supposed to go to PT but never got a call. She states she has been limping which is causing right lower back pains and spasm. MD Complaint: joint pain Onset (ago): month(s) Pain Consistency: constant Location: left and knee Severity scale (1-10): 8 Quality: aching Radiation: distal Relieving factors: immobilization and rest Exacerbating factors: weight bearing and palpation Associated symptoms: denies other symptoms Related Data Home Medications Medication Instructions Recorded Confirmed acetaminophen 500 mg tablet 1,000 mg PO Q6H PRN fever 08/02/22 08/02/22 amitriptyline 10 mg tablet 10 mg PO BEDTIME 08/02/22 08/02/22 aspirin 81 mg tablet,delayed 81 mg PO QAM 08/02/22 08/02/22 release atorvastatin 80 mg tablet 80 mg PO BEDTIME 08/02/22 08/02/22 bupropion HCl 150 mg tablet,12 hr 150 mg PO 08/02/22 08/02/22 sustained-release clopidogrel 75 mg tablet 75 mg PO QAM 08/02/22 08/02/22 furosemide 40 mg tablet 40 mg PO QAM 08/02/22 08/02/22 midodrine 10 mg tablet 0 mg PO 08/02/22 08/02/22 trazodone 100 mg tablet 100 - 150 mg PO BEDTIME 08/02/22 08/02/22 Previous Rx's Medication Instructions Recorded ibuprofen 600 mg tablet 600 mg PO Q6H PRN pain #30 tabs 09/25/20 fluticasone propionate 50 1 spray intranasal Q12H #16 grams 03/19/21 mcg/actuation nasal spray,suspension (Flonase Allergy Relief) cyclobenzaprine 10 mg tablet 10 mg PO TID PRN muscle spasm #14 01/16/23 tabs lidocaine 5 % topical patch 1 patch topical DAILY #15 ea 01/16/23 Allergies Allergy/AdvReac Type Severity Reaction Status Date / Time midodrine [MIDODRINE] Allergy Severe HIGHER Verified 08/02/22 08:13 DOSES 40MG NUMBNESS AND SOB lisinopril [LISINOPRIL] AdvReac Intermediate UPSET Verified 08/02/22 08:13 STOMACH Review of Systems Review of Systems: Yes all other systems are reviewed and are negative COUNT INCLUDES THE [facility] Past Medical History Medical History CHF (congestive heart failure) Cyst of perianal area Surgical History History of heart artery stent Tubal ligation status Social History Social History (Updated 08/02/22 @ 08:14 by BRAULIO Castorena) Alcohol intake: never Advance Directives: No Current occupational status: employed 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 Oriented X3. No acute distress. HEENT: normal inspection CVS: Normal heart rate and rhythm. Pulses normal. Respiratory: No respiratory distress. Skin: Skin warm and dry. Normal skin color. Normal skin turgor. No rashes. Extremities: normal inspection of the bilateral knees. left knee with tenderness of the medial and lateral joint lines, no appreciated swelling or palpable effusion. normal ROM, with pain upon flexion past 90 degrees. Back: normal inspection, soft tissue tenderness of the right lumar area with palpable spasm. no midline tenderness Neuro: Oriented X 3. No motor deficit. No sensory deficit. Ambulates with an antalgic gait Course Course Course Narrative: 42 yo female presenting with acute on chronic knee pain - no new injury but overusing it at work lately. Never went to the recommended PT. She was also supposed to f/u with Orthopedics which she never did. We discussed the importance of close outpatient follow up as well as other lifestyle modifications including new supportive shoes, weight loss, etc. Stable for d/c home Medical Decision Making Differential Diagnosis Differential Diagnoses: The differential diagnosis associated with the presentation includes Knee pain - osteoarthritis, rheumatologic joint pain, ligamentous injury, overuse injury, meniscus injury, knee sprain Low back pain - Inflammatory disorders, malignancy, trauma, osteoporosis, nerve root compression, radiculopathy, plexopathy, degenerative disc disease, disc herniation, spinal stenosis, sacroiliac joint dysfunction, facet joint injury, and less likely infection?like abscess or diskitis Independent Interpretation I performed an independent interpretation of an: Plain X-Ray Interpretation: x-ray left knee is unremarkable, no fx or effusion - agree with radiologist impression Radiology Impression Discussion of test interpretation with radiology: I have reviewed the radiologist's reading. Radiologist Impression: FINDINGS: Bones and soft tissues are normal. No fracture or joint effusion. Alignment is anatomic. Joint spaces are well maintained. No abnormal soft tissue calcification.? XR/XR knee LT 3V IMPRESSION: Unremarkable left knee. External Record Review External record reviewed: Outpatient record, Prior outpatient labs and Prior outpatient radiology Prescription Management I considered prescription management with: Pain Medication Critical Care Time Critical Care Time Critical Care Time: No Discharge Plan Discharge Clinical Impression: Chronic knee pain, Lumbar strain Patient Disposition: Home, Self-Care Instructions: Low Back Strain (ED), Knee Pain (ED), Lower Back Exercises (ED) Additional Instructions: Rest your knee, ice and elevate when able. Recommend trial of a different type of knee brace to see if a new brand/type will improve the pain - you can find these in any pharmacy. Follow up with Orthopedics or your PCP for Physical Therapy referral Your back pain is due to muscle strain/spasm from walking with a limp No bending, lifting or twisting. Use ice several times per day for 20 minutes at a time for the next 48 hours and then change to heat. Take medications as prescribed to help with pain and discomfort. If you develop new or worsening symptoms call 911 or come back to the ER for further evaluation. Prescriptions: New cyclobenzaprine 10 mg tablet 10 mg PO TID PRN (Reason: muscle spasm) Qty: 14 0RF lidocaine 5 % adhesive patch,medicated 1 patch topical DAILY Qty: 15 0RF Rx Instructions: leave on most painful area for up to 12 hrs No Action ibuprofen 600 mg tablet 600 mg PO Q6H PRN (Reason: pain) Qty: 30 0RF fluticasone propionate [Flonase Allergy Relief] 50 mcg/actuation spray,suspension 1 spray intranasal Q12H Qty: 16 0RF Rx Instructions: administer into each nostril trazodone 100 mg tablet 100 - 150 mg PO BEDTIME bupropion HCl 150 mg tablet sustained-release 12 hr 150 mg PO midodrine 10 mg tablet 0 mg PO amitriptyline 10 mg tablet 10 mg PO BEDTIME aspirin 81 mg tablet,delayed release (DR/EC) 81 mg PO QAM atorvastatin 80 mg tablet 80 mg PO BEDTIME clopidogrel 75 mg tablet 75 mg PO QAM furosemide 40 mg tablet 40 mg PO QAM acetaminophen 500 mg tablet 1,000 mg PO Q6H PRN (Reason: fever) Referrals: [facility] – [place] Orthopedic Surgeons [Provider Group] (chronic left knee pain, never got PT referral) Stand Alone Forms: Work/School Release
== END 2023-01-16 11:12 | disposition home or self-care (01) ==
PROVIDERS: Emergency Provider Student in an Organized Health Care Education/Training Program; PCP Internal Medicine
DX: M25.562 Pain in left knee (principal); M54.50 Low back pain, unspecified; Z79.899 Other long term (current) drug therapy
CPT/HCPCS: 73562; 99282; 99283

== ENCOUNTER 2023-03-19 10:41 | Outpatient (REF) | payer MEDICAID, SELFPAY ==
--- NOTE | ~2023-03-19 | XR_ITS ---
EXAMINATION: XR CHEST CLINICAL INFORMATION: Cough. COMPARISON: 09/25/2020 chest radiographs. TECHNIQUE: 2 views of the chest were obtained. FINDINGS: The lungs are clear. There are no pleural effusions. The heart and mediastinal structures are unremarkable. XR/XR chest 2V IMPRESSION: No acute cardiopulmonary process.
== END 2023-03-19 10:42 | disposition home or self-care (01) ==
LOC: HO.HHCX 10:41
PROVIDERS: PCP Internal Medicine; Referring Provider Registered Nurse; Visit Provider Registered Nurse
DX: R05.1 Acute cough (principal)
CPT/HCPCS: 71046

== ENCOUNTER 2023-06-25 09:17 | Emergency (ER) | payer MEDICAID, SELFPAY ==
[2023-06-25 09:35] VITALS: BP 114/74; PULSE 80; RESP 18; TEMP 37.2; O2SAT 99; BMI 45.7
--- OUTSIDE RECORDS SUMMARY | 2023-06-25 10:02 | XMS_ITS | Continuity of Care Document ---
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 Role Phone Cristian CHAPARRO, Negra Tan Primary Care Physician Encounter [facility] [place] Date(s): 10/28/21 - 10/29/[address] [address] Encounter Diagnosis Acute coronary syndrome(Final) - 10/28/21 Discharge Disposition: A-D/C Home Attending Physician: Cresencio CHAPARRO, Sylvester Haynes Admitting Physician: Guillermina Bautista MD Referring Physician: Not on Staff, Referring MD Allergies, Adverse Reactions, Alerts Substance Reaction Severity Status lisinopril Nausea present Active Immunizations Given and Recorded Vaccine Date Status Refusal Reason influenza virus vaccine, inactivated 12/03/19 Give n influenza virus vaccine, inactivated 1 08/21/11 Gi gurpreet influenza virus vaccine, inactivated 2 01/03/11 Gi gurpreet 1Admin Note: CDC info given to patient 2Admin Note: vis given vis date 06/26/2010 Medications aluminum hydroxide/magnesium hydroxide/simethicone 200 mg-200 mg-20 mg/5 mL oral suspension 10 mL, By Mouth, 4 times a day, PRN Dyspepsia, for 7 days, # 180 mL, 0 Refills, Acute 11/05/21 10:15:00 EST, 10/29/21 10:15:00 EST, Suspension, [facility]/pharmacy #[id number], Partial fill upon patient request if the prescription is for a schedule II opioid drug.... Start Date: 10/29/21 Stop Date: 11/05/21 Status: Ordered aspirin 81 mg oral delayed release tablet 81 mg, 1, tablet, By Mouth, Daily, # 30 tablet, Refills 11, Tot. Refills 11, Maintenance, 04/25/17 12:06:43, Route to Pharmacy Electronically, [id number], [facility] 3 Start Date: 04/25/17 Stop Date: 04/20/18 Status: Ordered atorvastatin 80 mg oral tablet = 80 mg, By Mouth, Daily at bedtime, # 30 tablet, 3 Refills, Maintenance, Tablet, Route to PharmacyElectronically, [id number], [facility] 3 Start Date: 04/25/17 Stop Date: 08/23/17 Status: Ordered Biotin By Mouth, Daily, 0 Refills, Maintenance, 12/02/19 10:24:00 EST Start Date: 12/02/19 Status: Ordered buPROPion 150 mg/12 hours (SR) oral tablet, extended release = 150 mg, By Mouth, 2 times a day, 0 Refills, Maintenance, 04/25/17 12:08:37, SR Tablet Start Date: 04/25/17 Status: Ordered clopidogrel 75 mg oral tablet 75 mg, 1, tablet, By Mouth, Daily, # 90 tablet, Refills 1, Tot. Refills 1, Maintenance, 03/07/21 16:18:00 EDT, Route to Pharmacy Electronically, [facility], 168, cm, 10/25/20 15:56:00 EST, Height, 102.1, kg, 10/24/20 22:52:00 EST,... Start Date: 03/07/21 Stop Date: 10/03/21 Status: Ordered Lasix 40 mg oral tablet 40 mg, 1, tablet, By Mouth, Daily, # 60 tablet, Refills 4, Tot. Refills 4, Maintenance, 03/24/19 13:05:54 EDT, Route to Pharmacy Electronically, [id number], [facility] 3 Start Date: 03/24/19 Status: Ordered midodrine 10 mg oral tablet 1 tablet, By Mouth, 2 times a day, TAKE 1 DOSE IN THE MORNING & SECOND DOSE 5 HOURS LATER, # 60tablet, 5 Refills, Maintenance, 06/14/21 13:23:00 EDT, [facility], 168, cm, 10/25/20 15:56:00 EST, Height, 102.1, kg, 10/24/20 22:52:00... Start Date: 06/14/21 Status: Ordered midodrine 5 mg oral tablet 10 mg, Tablet, By Mouth, 10/29/21 9:00:00 EST Start Date: 10/29/21 Stop Date: 10/29/21 Status: Completed nitroglycerin 0.4 mg sublingual tablet = 0.4 mg, Sublingual, Every 5 minutes, PRN Chest Pain, If chest pain not relieved in 5 minutes after first dose, call 911, # 25 tablet, 0 Refills, Maintenance, 03/24/19 13:06:19 EDT, Tablet Start Date: 03/24/19 Status: Ordered Gayatri-Colace 50 mg-8.6 mg oral tablet 2 tablet, By Mouth, Daily, PRN Constipation, # 1 tablet, 11 Refills, Maintenance, 08/19/17 12:51:40EDT, Tablet, [facility] - Start Date: 08/19/17 Status: Ordered traZODone 100 mg oral tablet 100 mg, 1, tablet, By Mouth, 2 times a day, # 60 tablet, Refills 0, Tot. Refills 0, Maintenance, 10/29/21 10:14:00 EST, Route to Pharmacy Electronically, [facility]/pharmacy #[id number], Partial fill upon patientrequest if the prescription is for a schedule II op... Start Date: 10/29/21 Status: Ordered Problem List Condition Effective Dates Status Health Status Inform ant Constipation in female(Confirmed) Active Dyspnea(Confirmed) Active Ischemic cardiomyopathy(Confirmed) Active Heart failure with reduced e jection fraction, NYHA class II(Confirmed) Active Hyperlipidemia(Confirmed) Active Obese class II(Confirmed) Active Left shoulder pain(Confirmed) Active Results Radiology Reports * Exam Date Time Procedure Performing Provider Status 10/28/21 8:37 PM Cervical Spine 3 Views or Less Kyile Schmitz; Raheem (Verified) Notes: (Cervical Spine 3 Views or Less) Reason For Exam: Pain RESULT: Cervical Spine 3 Views or Less Cervical Spine 3 Views or Less Reason: Pain; Clinical Question(s): Disc Disease COMPARISON: None. FINDINGS: No bone lesions or fractures. Normal odontoid and C1/2 relationship. Normal alignment and well preserved disc and vertebral body morphology. There is a somewhat oval-shaped soft tissue density in the right neck measuring approximately 5.3 x3.2 cm. IMPRESSION: 1. No acute osseous abnormality or significant degenerative disc disease. 2. Oval soft tissue density in the right lateral neck cannot be further characterized with x-ray. Please correlate with physical examination findings to exclude a mass or fluid collection and consider further evaluation with ultrasound if clinically warranted. A Scurry message has been communicated via the [facility] system on 10/28/2021 9:01 PM, Message ID [id number]. WSN: [id number] Ordering Physician: Greta Reyna Dictated By: Chloe Rosado MD Dictated Date/Time: 10/28/21 9:01 pm Reviewed By: Chloe Rosado MD Signed By: Chloe Rosado MD Signed Date/Time: 10/28/21 9:01 pm Transcribed By: SHU Transcribed Date/Time: 10/28/21 8:59 pm * Exam Date Time Procedure Performing Provider Status 10/28/21 1:58 PM Chest 2 Views Frontal and Lat EkNeeta truong; Auth (Verified) Notes: (Chest 2 Views Frontal and Lat) Reason For Exam: Chest Pain;Other: RESULT: Chest 2 Views Frontal and Lat Chest 2 Views Frontal and Lat Hx of Present Illness: CP and L arm pain neck pain back pain - worse with exertion. Better when shesleeps. H O CHFand ME x 3. Has 2 cardiac stents. Denies SOB at this time; Reason: Other:; Chest Pain; Clinical Question(s): Other: COMPARISON: None. FINDINGS: LINES AND TUBES: None. LUNGS AND PLEURA: Clear lungs. Normal pulmonary vascularity. No pleural effusion. No pneumothorax. HEART, MEDIASTINUM AND SARAH: Heart is normal in size. Normal upper mediastinal and hilar contour. BONES AND SOFT TISSUES: No acute abnormality. IMPRESSION: No acute abnormality. WSN: [id number] Ordering Physician: Jett Arciniega Dictated By: Minh Skelton MD Dictated Date/Time: 10/28/21 1:59 pm Reviewed By: Minh Skelton MD Signed By: Minh Skelton MD Signed Date/Time: 10/28/21 1:59 pm Transcribed By: SHU Transcribed Date/Time: 10/28/21 1:58 pm Vital Signs Most recent to oldest [Reference Range]: 1 2 3 Height 168 cm (10/29/21 11:00 AM) 168 cm (10/29/21 7:24 AM) 168 cm (10/29/21 4:00 AM) Weight 104 kg (10/28/21 6:50 PM) Oxygen Saturation [94-100 %] 99 % (10/29/21 11:00 AM) 98 % (10/29/21 7:24 AM) 97 % (10/29/21 4:00 AM) Pulse Rate [55-90 bpm] 93 bpm *H* (10/29/21 11:00 AM) 72 bpm (10/29/21 9:16 AM) 72 bpm (10/29/21 7:24 AM) Body Mass Index [18.5-24.99] 36.85 *>HHI* (10/28/21 6:50 PM) Blood Pressure [90-138/55-84 mm Hg] 117/81mm Hg (10/29/21 11:00 AM) 106/75mm Hg (10/29/21 9:16 AM) 106/75mm Hg (10/29/21 7:24 AM) Respiratory Rate [16-30 br/min] 20 br/min (10/29/21 11:00 AM) 18 br/min (10/29/21 10:34 AM) 20 br/min (10/29/21 7:24 AM) Temperature [96.8-100.4 DegF] 97.7 DegF (10/29/21 11:00 AM) 97.9 DegF (10/29/21 7:24 AM) 98.5 DegF (10/29/21 4:00 AM) Mode of Delivery (Oxygen) Room air (10/29/21 11:00 AM) Room air (10/29/21 7:24 AM) Room air (10/29/21 4:00 AM) Blood pressure sites Arm, right (10/29/21 11:00 AM) Arm, left (10/29/21 7:24 AM) Arm, left (10/29/21 4:00 AM) Temperature Route Oral (10/29/21 11:00 AM) Oral (10/29/21 7:24 AM) Oral (10/29/21 4:00 AM) Dry Weight 104 kg (10/28/21 6:50 PM) Weight Obtained Via Bed scale (10/28/21 6:50 PM) Dry Weight Obtained Via Bed scale (10/28/21 6:50 PM) Social History Social History Type Response Smoking Status Former smoker; Tobac co user in household: No; Other: pt quit 06/2017; entered on: 09/30/17 Sex Female
--- OUTSIDE RECORDS SUMMARY | 2023-06-25 10:02 | XMS_ITS | Continuity of Care Document ---
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 Role Phone Cristian CHAPARRO, Negra Tan Primary Care Physician Encounter [facility] Date(s): 11/30/19 - 12/07/[address] [address]- [facility] Attending Physician: Enrique Lundberg DO Allergies, Adverse Reactions, Alerts Substance Reaction Severity Status lisinopril Nausea present Active Immunizations Given and Recorded Vaccine Date Status Refusal Reason influenza virus vaccine, inactivated 12/03/19 Give n influenza virus vaccine, inactivated 1 08/21/11 Gi gurpreet influenza virus vaccine, inactivated 2 01/03/11 Gi gurpreet 1Admin Note: CDC info given to patient 2Admin Note: vis given vis date 06/26/2010 Medications aspirin 81 mg oral delayed release tablet 81 mg, 1, tablet, By Mouth, Daily, # 30 tablet, Refills 11, Tot. Refills 11, Maintenance, 04/25/17 12:06:43, Route to Pharmacy Electronically, [id number], [facility] 3 Start Date: 04/25/17 Stop Date: 04/20/18 Status: Ordered atorvastatin 80 mg oral tablet = 80 mg, By Mouth, Daily at bedtime, # 30 tablet, 3 Refills, Maintenance, Tablet, Route to PharmacyElectronically, [id number], [facility] 3 Start Date: 04/25/17 Stop Date: 08/23/17 [...] By Mouth, Daily, # 30 tablet, Refills 5, Tot. Refills 5, Maintenance, 05/31/19 15:06:10 EDT, Route to Pharmacy Electronically, [id number], [facility] - Start Date: 05/31/19 Status: Ordered Colace sodium 100 mg oral capsule 100 mg, 1, capsule, By Mouth, 2 times a day, PRN, # 20 capsule, Refills 0, Tot. Refills 0, Maintenance, for constipation, 10/27/19 9:25:52 EST, Print Requisition Start Date: 10/27/19 Status: Ordered Lasix 40 mg oral tablet 40 mg, 1, tablet, By Mouth, Daily, # 60 tablet, Refills 4, Tot. Refills 4, Maintenance, 03/24/19 13:05:54 EDT, Route to Pharmacy Electronically, [id number], [facility] 3 Start Date: 03/24/19 Status: Ordered midodrine 10 mg oral tablet 1 tablet = 10 mg, By Mouth, 2 times a day, Take morning dose and next dose 5 hours later, # 60 tablet, 11 Refills, Maintenance, 07/06/19 15:00:46 EDT Start Date: 07/06/19 Stop Date: 06/30/20 Status: Ordered nitroglycerin 0.4 mg sublingual tablet = 0.4 mg, Sublingual, Every 5 minutes, PRN Chest Pain, If chest pain not relieved in 5 minutes after first dose, call 911, # 25 tablet, 0 Refills, Maintenance, 03/24/19 13:06:19 EDT, Tablet Start Date: 03/24/19 Status: Ordered Gayatri-Colace 50 mg-8.6 mg oral tablet 2 tablet, By Mouth, Daily at bedtime, # 30 tablet, 11 Refills, Maintenance, 08/19/17 12:51:40, Tablet, 2 tablet By Mouth Daily at bedtime Start Date: 08/19/17 Status: Ordered traZODone 50 mg oral tablet 50 mg, 1, tablet, By Mouth, Daily at bedtime, Refills 0, Maintenance, 10/21/19 9:37:27 EST Start Date: 10/21/19 Status: Ordered Problem List Condition Effective Dates Status Health Status Inform ant Constipation in female(Confirmed) Active Dyspnea(Confirmed) Active Ischemic cardiomyopathy(Confirmed) Active Heart failure with reduced e jection fraction, NYHA class II(Confirmed) Active Hyperlipidemia(Confirmed) Active Left shoulder pain(Confirmed) Active Social History Social History Type Response Smoking Status Former smoker; Tobac co user in household: No; Other: pt quit 06/2017; entered on: 09/30/17 Sex Female
--- OUTSIDE RECORDS SUMMARY | 2023-06-25 10:02 | XMS_ITS | Continuity of Care Document ---
Author Name Unknown Organization [facility] Address [address] [place] [id number]- Care Team Providers Care Denture Technician Name Role Phone Cristian CHAPARRO, Negra Tan Primary Care Physician En[place] [facility] [place] Date(s): 06/24/22 - 07/24/22 [facility] [address] [place] [phone]- Attending Physician: Monae Mckoy Admitting Physician: Monae Mckoy Referring Physician: Monae Mckoy Allergies, Adverse Reactions, Alerts Substance Reaction Severity [...] Maintenance, 04/25/17 12:06:43, Route to Pharmacy Electronically, [id number], [facility] 3 Start Date: 04/25/17 Stop Date: 04/20/18 Status: Ordered atorvastatin 80 mg oral tablet = 80 mg, By Mouth, Daily at bedtime, # 30 tablet, 3 Refills, Maintenance, Tablet, Route to PharmacyElectronically, [id number], [facility] 3 Start Date: 04/25/17 Stop Date: 08/23/17 Status: Ordered Biotin By Mouth, Daily, 0 Refills, Maintenance, 12/02/19 10:24:00 EST Start Date: 12/02/19 Status: Ordered buPROPion 150 mg/12 hours (SR) oral tablet, extended release = 150 mg, By Mouth, 2 times a day, 0 Refills, Maintenance, 04/25/17 12:08:37, SR Tablet Start Date: 04/25/17 Status: Ordered clopidogrel 75 mg oral tablet 1, tablet, By Mouth, Daily in AM, # 90 tablet, Refills 1, Route to Pharmacy Electronically, [facility], 168, cm, 03/11/22 23:48:00 EDT, Height, 106, kg, 03/11/22 23:48:00 EDT, DryWeight Start Date: 04/11/22 Status: Ordered Lasix 40 mg oral tablet 20 mg, 0.5, tablet, By Mouth, Daily, # 60 tablet, Refills 4, Tot. Refills 4, Maintenance, 03/24/19 13:05:54 EDT, Route to Pharmacy Electronically, [facility] 3 Start Date: 03/24/19 Status: Ordered midodrine 10 mg oral tablet 1 tablet, By Mouth, 2 times a day, TAKE 1 DOSE IN THE MORNING & SECOND DOSE 5 HOURS LATER, # 60tablet, 5 Refills, [facility], 168, cm, 10/29/21 11:00:00 EST, Height, 104, kg,10/28/21 18:50:00 EST, Dry Weight Start Date: 03/11/22 Status: Ordered nitroglycerin 0.4 mg sublingual tablet [...] tablet, 11 Refills, Maintenance, 08/19/17 12:51:40EDT, Tablet, [facility] - Start Date: 08/19/17 Status: Ordered traZODone 100 mg oral tablet 100 mg, 1, tablet, By Mouth, 2 times a day, # 60 tablet, Refills 0, Tot. Refills 0, Maintenance, 10/29/21 10:14:00 EST, Route to Pharmacy Electronically, [facility]/pharmacy #[id number], Partial fill upon patientrequest if the prescription is for a schedule II op... Start Date: 10/29/21 Status: Ordered Problem List Condition Effective Dates Status Health Status Inform ant Constipation in female(Confirmed) Active Dyspnea(Confirmed) Active Ischemic cardiomyopathy(Confirmed) Active Heart failure with reduced e jection fraction, NYHA class II(Confirmed) Active Hyperlipidemia(Confirmed) Active Obese class II(Confirmed) Active Left shoulder pain(Confirmed) Active Social History Social History Type Response Smoking Status Former smoker; Tobac co user in household: No; Other: pt quit 06/2017; entered on: 09/30/17 Sex Female Care Team Personnel Name: Cristian CHAPARRO, Negra Tan Address: [address] [place] [address]
--- OUTSIDE RECORDS SUMMARY | 2023-06-25 10:02 | XMS_ITS | Continuity of Care Document ---
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 Role Phone Cristian CHAPARRO, Negra Tan Primary Care Physician Encounter [facility] [place] Date(s): 10/24/20 - 10/25/[address] [address] Discharge Disposition: A-D/C Home Attending Physician: Komal Del Rosario MD Admitting Physician: Pasquale Snow MD Referring Physician: Not on Staff, Referring [...] Maintenance, 04/25/17 12:06:43, Route to Pharmacy Electronically, [id number], [facility] 3 Start Date: 04/25/17 Stop Date: 04/20/18 Status: Ordered atorvastatin 80 mg oral tablet = 80 mg, By Mouth, Daily at bedtime, # 30 tablet, 3 Refills, Maintenance, Tablet, Route to PharmacyElectronically, [id number], [facility] 3 Start Date: 04/25/17 Stop Date: 10/7/17 Status: Ordered Biotin By Mouth, Daily, 0 Refills, Maintenance, 12/02/19 10:24:00 EST Start Date: 12/02/19 Status: Ordered buPROPion 150 mg/12 hours (SR) oral tablet, extended release = 150 mg, By Mouth, 2 times a day, 0 Refills, Maintenance, 04/25/17 12:08:37, SR Tablet Start Date: 04/25/17 Status: Ordered clopidogrel 75 mg oral tablet 75 mg, 1, tablet, By Mouth, Daily, # 30 tablet, Refills 6, Tot. Refills 6, Maintenance, 06/12/20 15:34:00 EDT, Route to Pharmacy Electronically, [facility], 168, cm, 12/03/19 10:56:00 EST, Height, 95.2, kg, 12/02/19 16:19:00 EST, D... Start Date: 06/12/20 Stop Date: 01/08/21 Status: Ordered Colace sodium 100 mg oral [...] 03/24/19 13:05:54 EDT, Route to Pharmacy Electronically, [id number], [facility] 3 Start Date: 03/24/19 Status: Ordered midodrine 10 mg oral tablet 1 tablet = 10 mg, By Mouth, 2 times a day, Take morning dose and next dose 5 hours later, # 60 tablet, 11 Refills, Maintenance, 06/12/20 15:33:00 EDT, [facility], 168, cm, 12/03/19 10:56:00 EST, Height, 95.2, kg, 12/02/19 16:19:00... Start Date: 06/12/20 Stop Date: 06/07/21 Status: Ordered midodrine 5 mg oral tablet 10 mg, Tablet, By Mouth, 10/25/20 9:00:00 EST Start Date: 10/25/20 Stop Date: 10/25/20 Status: Completed nitroglycerin 0.4 mg sublingual tablet [...] tablet, 11 Refills, Maintenance, 08/19/17 12:51:40EDT, Tablet, [facility] - Start Date: 08/19/17 Status: Ordered traZODone 50 mg oral tablet 2 tablets, By Mouth, Daily at bedtime, take 100 mg, Refills 0, Maintenance, 10/21/19 9:37:27 EST Start Date: 10/21/19 Status: Ordered Problem List Condition Effective Dates Status Health Status Inform ant Constipation in female(Confirmed) Active Dyspnea(Confirmed) Active Ischemic cardiomyopathy(Confirmed) Active Heart failure with reduced e jection fraction, NYHA class II(Confirmed) Active Hyperlipidemia(Confirmed) Active Left shoulder pain(Confirmed) Active Results Orders for Microbiology Reports Name Date Urine Culture (URINE CULTURE) 10/24/20 Microbiology Reports TEST:Urine Culture STATUS:Unauthenticated BODY SITE: SOURCE:URINE COLLECTED DATE/TIME:10/24/20 5:35 PM Urine Culture SPECIMEN DESCRIPTION : URINE CLEAN CATCH/MIDSTREAM SPECIAL REQUESTS : NONE Reflexed from [id number] REPORT STATUS : PRELIMINARY REPORT Radiology Reports * Exam Date Time Procedure Performing Provider Status 10/24/20 2:08 PM Chest Portable Leti Zhang; Raheem (Verified) Notes: (Chest Portable) Reason For Exam: Chest Pain;Other: RESULT: Chest Portable Chest Portable INDICATION: SOB, CP, left shoulder pain; Chest Pain COMPARISON: 12/02/2019 FINDINGS: LINES AND TUBES: None. LUNGS AND PLEURA: Clear lungs. Normal pulmonary vascularity. No pleural effusion. No pneumothorax. HEART, MEDIASTINUM AND SARAH: Heart is normal in size. Normal upper mediastinal and hilar contour. BONES AND SOFT TISSUES: No acute abnormality. IMPRESSION: No acute abnormality. I have personally reviewed the images and I agree with this report. WSN: [id number] Ordering Physician: Fredy Hearn Dictated By: Rosemarie Pimentel DO Dictated Date/Time: 10/24/20 2:16 pm Reviewed By: Josiah Lin MD Signed By: Josiah Lin MD Signed Date/Time: 10/24/20 2:21 pm Transcribed By: SHU Transcribed Date/Time: 10/24/20 2:11 pm Vital Signs Most recent to oldest [Reference Range]: 1 2 3 Height 168 cm (10/25/20 3:56 PM) 168 cm (10/25/20 11:16 AM) 168 cm (10/25/20 6:36 AM) Weight 102.1 kg (10/24/20 10:52 PM) 95.3 kg (10/24/20 9:41 PM) Oxygen Saturation [94-100 %] 97 % (10/25/20 3:56 PM) 97 % (10/25/20 11:16 AM) 98 % (10/25/20 6:36 AM) Pulse Rate [55-90 bpm] 78 bpm (10/25/20 3:56 PM) 74 bpm (10/25/20 11:16 AM) 73 bpm (10/25/20 8:23 AM) Body Mass Index [18.5-24.99] 36.17 *>HHI* (10/24/20 10:52 PM) Blood Pressure [90-138/55-84 mm Hg] 102/60mm Hg (10/25/20 3:56 PM) 94/56mm Hg (10/25/20 11:16 AM) 90/54mm Hg (10/25/20 8:23 AM) Respiratory Rate [16-30 br/min] 17 br/min (10/25/20 3:56 PM) 17 br/min (10/25/20 11:16 AM) 20 br/min (10/25/20 6:48 AM) Temperature [96.8-100.4 DegF] 97.8 DegF (10/25/20 3:56 PM) 97.9 DegF (10/25/20 11:16 AM) 98.4 DegF (10/25/20 6:36 AM) Mode of Delivery (Oxygen) Room air (10/25/20 3:56 PM) Room air (10/25/20 11:16 AM) Room air (10/25/20 6:36 AM) Blood pressure sites Arm, right (10/25/20 3:56 PM) Arm, left (10/25/20 11:16 AM) Arm, right (10/25/20 6:36 AM) Temperature Route Oral (10/25/20 3:56 PM) Oral (10/25/20 11:16 AM) Oral (10/25/20 6:36 AM) Dry Weight 102.1 kg (10/24/20 10:52 PM) Weight Obtained Via Patient/family state d (10/24/20 10:52 PM) Bed scale (10/24/20 9:41 PM) Dry Weight Obtained Via Patient/family s tated (10/24/20 10:52 PM) Social History Social History Type Response Smoking Status Former smoker; Tobac co user in household: No; Other: pt quit 06/2017; entered on: 09/30/17 Sex Female
--- OUTSIDE RECORDS SUMMARY | 2023-06-25 10:02 | XMS_ITS | Continuity of Care Document ---
Author Name Unknown Organization [facility] Address [address] [place] [address]- Care Team Providers Care Mold Hoister Name Role Phone Cristian CHAAPRRO, Negra Tan Primary Care Physician [place] [facility] [place] 11[place]22/20 [facility] [address] [place] [id number] Allergies, Adverse Reactions, Alerts Substance Reaction Severity [...] Maintenance, 04/25/17 12:06:43, Route to Pharmacy Electronically, [id number], [facility] Start Date: 04/25/17 Stop Date: 04/20/18 Status: Ordered atorvastatin 80 mg oral tablet = 80 mg, By Mouth, Daily at bedtime, # 30 tablet, 3 Refills, Maintenance, Tablet, Route to PharmacyElectronically, [id number], [facility] Start Date: [...] 06/12/20 15:34:00 EDT, Route to Pharmacy Electronically, [facility], 168, cm, 12/03/19 10:56:00 EST, Height, [...] 03/24/19 13:05:54 EDT, Route to Pharmacy Electronically, [id number], [facility] 3 Start Date: 03/24/19 Status: Ordered midodrine 10 mg oral tablet 1 tablet = 10 mg, By Mouth, 2 times a day, Take morning dose and next dose 5 hours later, # 60 tablet, 11 Refills, Maintenance, 06/12/20 15:33:00 EDT, [facility], 168, cm, 12/03/19 10:56:00 EST, Height, 95.2, kg, 12/02/19 16:19:00... Start Date: 06/12/20 Stop Date: 06/07/21 Status: Ordered nitroglycerin 0.4 mg sublingual tablet [...] tablet, 11 Refills, Maintenance, 08/19/17 12:51:40EDT, Tablet, [facility] - Start Date: 08/19/17 Status: [...]
--- OUTSIDE RECORDS SUMMARY | 2023-06-25 10:02 | XMS_ITS | Continuity of Care Document ---
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 Name Role Phone Cristian CHAPARRO, Negra Tan Primary Care Physician Encounter [facility] [place] Date(s): 10/18/19 - 10/28/19 [facility] [address] [address]- [facility] Attending Physician: Monae Mckoy Admitting Physician: Monae Mckoy Referring Physician: Monae Mckoy Allergies, Adverse Reactions, Alerts Substance Reaction Severity Status lisinopril Nausea present Active Immunizations Given and Recorded Vaccine Date Status Refusal Reason influenza virus vaccine, inactivated 1 08/21/11 Gi gurpreet influenza virus vaccine, inactivated 2 01/03/11 Gi gurpreet 1Admin Note: CDC info given to patient 2Admin Note: vis given vis date 06/26/2010 Medications aspirin 81 mg oral delayed release tablet 81 mg, 1, tablet, By Mouth, Daily, # 30 tablet, Refills 11, Tot. Refills 11, Maintenance, 04/25/17 12:06:43, Route to Pharmacy Electronically, [id number], [facility] Start Date: 04/25/17 Stop Date: 04/20/18 Status: Ordered atorvastatin 80 mg oral tablet = 80 mg, By Mouth, Daily at bedtime, # 30 tablet, 3 Refills, Maintenance, Tablet, Route to PharmacyElectronically, [id number], [facility] Start Date: 04/25/17 Stop Date: 08/23/17 Status: Ordered buPROPion 150 mg/12 hours (SR) oral tablet, extended release = 150 mg, By Mouth, 2 times a day, 0 Refills, Maintenance, 04/25/17 12:08:37, SR Tablet Start Date: 04/25/17 Status: Ordered clopidogrel 75 mg oral tablet 75 mg, 1, tablet, By Mouth, Daily, # 30 tablet, Refills 5, Tot. Refills 5, Maintenance, 05/31/19 15:06:10 EDT, Route to Pharmacy Electronically, [id number], [facility] - Start Date: 05/31/19 Status: Ordered [...] 03/24/19 13:05:54 EDT, Route to Pharmacy Electronically, [id number], [facility] 3 Start Date: 03/24/19 Status: Ordered [...] EDT, Tablet Start Date: 03/24/19 Status: Ordered oxyCODONE 5 mg oral tablet 5 mg, 1, tablet, By Mouth, Every 6 hours, PRN, for 2 days, # 7 tablet, Refills 0, Tot. Refills 0, Acute 10/29/19 9:21:40 EST, as needed for pain, 10/27/19 9:21:40 EST, Print Requisition, Partial fillupon patient request Start Date: 10/27/19 Stop Date: 10/29/19 Status: Ordered Gayatri-Colace 50 mg-8.6 mg oral [...] Effective Dates Status Health Status Inform ant CAD - Coronary artery disease(Confirmed) Active Dyspnea(Confirmed) Active Hyperlipidemia(Confirmed) Active Tobacco user(Confirmed) Active Social History Social History Type Response Smoking Status Former smoker; Tobac co user in household: No; Other: pt quit 06/2017; entered on: 09/30/17 Sex Female
--- OUTSIDE RECORDS SUMMARY | 2023-06-25 10:03 | XMS_ITS | Continuity of Care Document ---
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 Name Role Phone Cristian CHAPARRO, Negra Tan Primary Care Physician Encounter [facility] [place] Date(s): 05/27/22 - 07/24/22 [facility] [address] [place] [address]- Attending Physician: Gabe Salas NP Admitting Physician: Gabe Salas NP Referring Physician: Negra Foster MD Allergies, Adverse Reactions, Alerts Substance Reaction [...] Maintenance, 04/25/17 12:06:43, Route to Pharmacy Electronically, [id number], [facility] Start Date: 04/25/17 Stop Date: 04/20/18 Status: Ordered atorvastatin 80 mg oral tablet = 80 mg, By Mouth, Daily at bedtime, # 30 tablet, 3 Refills, Maintenance, Tablet, Route to PharmacyElectronically, [id number], [facility] Start Date: 04/25/17 [...] tablet, Refills 1, Route to Pharmacy Electronically, [facility], 168, cm, 03/11/22 23:48:00 EDT, Height, 106, kg, 03/11/22 23:48:00 EDT, DryWeight Start Date: 04/11/22 Status: Ordered Lasix 40 mg oral tablet 20 mg, 0.5, tablet, By Mouth, Daily, # 60 tablet, Refills 4, Tot. Refills 4, Maintenance, 03/24/19 13:05:54 EDT, Route to Pharmacy Electronically, [facility] 3 Start Date: 03/24/19 Status: Ordered midodrine 10 mg oral tablet 1 tablet, By Mouth, 2 times a day, TAKE 1 DOSE IN THE MORNING & SECOND DOSE 5 HOURS LATER, # 60tablet, 5 Refills, [facility], 168, cm, 10/29/21 11:00:00 EST, [...] tablet, 11 Refills, Maintenance, 08/19/17 12:51:40EDT, Tablet, [facility] - Start Date: 08/19/17 Status: Ordered traZODone 100 mg oral tablet 100 mg, 1, tablet, By Mouth, 2 times a day, # 60 tablet, Refills 0, Tot. Refills 0, Maintenance, 10/29/21 10:14:00 EST, Route to Pharmacy Electronically, [facility]/pharmacy #[id number], Partial fill upon patientrequest if the prescription [...] Personnel Name: Cristian CHAPARRO, Negra Tan Address: [address] [place] [address]
--- OUTSIDE RECORDS SUMMARY | 2023-06-25 10:03 | XMS_ITS | Continuity of Care Document ---
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 Role Phone Cristian CHAPARRO, Negra Tan Primary Care Physician Encounter [facility] [place] Date(s): 06/12/20 - 07/12/20 [facility] [address] [place] [address]- [facility] Allergies, Adverse Reactions, Alerts Substance Reaction Severity [...] Maintenance, 04/25/17 12:06:43, Route to Pharmacy Electronically, [id number], [facility] Start Date: 04/25/17 Stop Date: 04/20/18 Status: Ordered atorvastatin 80 mg oral tablet = 80 mg, By Mouth, Daily at bedtime, # 30 tablet, 3 Refills, Maintenance, Tablet, Route to PharmacyElectronically, [id number], [facility] Start Date: 04/25/17 Stop [...] 06/12/20 15:34:00 EDT, Route to Pharmacy Electronically, [facility], 168, cm, 12/03/19 10:56:00 EST, Height, [...] 03/24/19 13:05:54 EDT, Route to Pharmacy Electronically, [id number], [facility] 3 Start Date: 03/24/19 Status: Ordered midodrine 10 mg oral tablet 1 tablet = 10 mg, By Mouth, 2 times a day, Take morning dose and next dose 5 hours later, # 60 tablet, 11 Refills, Maintenance, 06/12/20 15:33:00 EDT, [facility], 168, cm, 12/03/19 10:56:00 EST, Height, [...]
--- OUTSIDE RECORDS SUMMARY | 2023-06-25 10:03 | XMS_ITS | Continuity of Care Document ---
Author Name Unknown Organization [facility] Address [address] [place] [address]- Care Team Providers Care Staff Nurse Midwife Name Role Phone Negra Foster MD Primary Care Physician Encounter [facility] [place] Date(s): 03/25/23 - 04/24/23 [facility] [address] [place] [address]- Attending Physician: Monae Mckoy Admitting Physician: Monae [...] Maintenance, 04/25/17 12:06:43, Route to Pharmacy Electronically, [id number], [facility] Start Date: 04/25/17 Stop Date: 04/20/18 Status: Ordered atorvastatin 80 mg oral tablet = 80 mg, By Mouth, Daily at bedtime, # 30 tablet, 3 Refills, Maintenance, Tablet, Route to PharmacyElectronically, [id number], [facility] Start Date: 04/25/17 Stop Date: 08/23/17 Status: Ordered buPROPion 150 mg/12 hours (SR) oral tablet, extended release = 150 mg, By Mouth, 2 times a day, 0 Refills, Maintenance, 04/25/17 12:08:37, SR Tablet Start Date: 04/25/17 Status: Ordered clopidogrel 75 mg oral tablet 1, tablet, By Mouth, Daily in AM, # 90 tablet, Refills 1, Maintenance, 04/10/23 8:06:00 EDT, Route to Pharmacy Electronically, [facility], 168, cm, 03/25/23 12:59:00 EDT, Height, 106, kg, 03/11/22 23:48:00 EDT, Dry Weight Start Date: 04/10/23 Status: Ordered Lasix 40 mg oral tablet 20 mg, 0.5, tablet, By Mouth, Daily, # 60 tablet, Refills 4, Tot. Refills 4, Maintenance, 03/24/19 13:05:54 EDT, Route to Pharmacy Electronically, [facility] 3 Start Date: 03/24/19 Status: Ordered midodrine 10 mg oral tablet 1 tablet, By Mouth, 2 times a day, TAKE 1 DOSE IN THE MORNING & SECOND DOSE 5 HOURS LATER, # 60each, 5 Refills, Maintenance, 12/18/22 9:01:00 EST, [facility], 168, cm, 05/24/22 8:00:00 EDT, Height, 106, kg, 03/11/22 23:48:00 EDT,... Start Date: 12/18/22 Status: Ordered nitroglycerin 0.4 mg sublingual tablet = 0.4 mg, Sublingual, Every 5 minutes, PRN Chest Pain, If chest pain not relieved in 5 minutes after first dose, call 911, # 25 tablet, 0 Refills, Maintenance, 03/24/19 13:06:19 EDT, Tablet Start Date: 03/24/19 Status: Ordered traZODone 100 mg oral tablet 100 mg, 1, tablet, By Mouth, 2 times a day, # 60 tablet, Refills 0, Tot. Refills 0, Maintenance, 10/29/21 10:14:00 EST, Route to Pharmacy Electronically, [facility]/pharmacy #[id number], Partial fill upon patientrequest if the prescription is for a schedule II op... Start Date: 10/29/21 Status: Ordered Problem List Condition Confirmation Course Effective Dates Status H ealth Status Informant Constipation in female Confirmed Active Dyspnea Confirmed Active Ischemic cardiomyopathy Confirmed Active Heart failure with reduced ejection fraction, NYHA class II Confirmed Active Hyperlipidemia Confirmed Active Severe obesity (BMI 35.0-39.9) with comorbidity Confirmed Active Left shoulder pain Confirmed Active Social History Social History Type Response Smoking Status Former smoker; Tobac co user in household: No; Other: pt quit 06/2017; entered on: 09/30/17 Sex Female Cardiology * Event Display: Stress Test Worksheet Authored Date: Cardiology Outpatient Note * Mami Pichardo: PERFORM, SIGN, VERIFY Event Display: Cardiology Note Office Authored Date: [id number] Patient: HUONG SAGASTUME Age: 36 years Sex: Female : 1980 Associated Diagnoses: None Author: aMmi Pichardo As needed Albuterol: 2 puffs, Inhalation, Every 4 hours, PRN (for wheezing), use with spacer chamber Morning medication Aspirin: 81 mg = 1 tablet, By Mouth, Daily Bisoprolol: 10 mg = 1 tablet, By Mouth, Daily, 1 tablet = 10mg Clopidogrel: 75 mg = 1 tablet, By Mouth, Daily Morning and night Midodrine: 5 mg = 1 tablet, By Mouth, 2 times a day BuPROpion: 150 mg, By Mouth, 2 times a day Bedtime Trazodone: 100 mg = 1 tablet, By Mouth, Daily at bedtime Atorvastatin: 80 mg, By Mouth, Daily at bedtime Nicotine: 1 patch, Topically, Daily, apply to different part of upper arm , hip, or lower back eachday Patient Care team information Care Team Personnel Name: Negra Foster MD Position: [facility] Outreach Member Role: PCP Address: Address: [address] [place] [address]- Name: Lexis Root RN Position: S RN Member Role: Primary Care Nurse Name: Avani Le RN Position: S RN Member Role: Primary Care Nurse Care Team Related Persons Name: NEGRA TAY Address: [address] [place] [address] Name: NICOLE CORREIA Address: home [address] [place] [address]
--- OUTSIDE RECORDS SUMMARY | 2023-06-25 10:03 | XMS_ITS | Continuity of Care Document ---
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 Name Role Phone Cristian CHAPARRO, Negra Tan Primary Care Physician Encounter [facility] [place] Date(s): 11/08/20 - 12/08/20 [facility] [address] [place] [id number] Attending Physician: Monae Mckoy Admitting Physician: Monae Mckoy Referring Physician: AdmtrMonae Allergies, Adverse Reactions, Alerts Substance Reaction Severity [...] Maintenance, 04/25/17 12:06:43, Route to Pharmacy Electronically, [id number], [facility] Start Date: 04/25/17 Stop Date: 04/20/18 Status: Ordered atorvastatin 80 mg oral tablet = 80 mg, By Mouth, Daily at bedtime, # 30 tablet, 3 Refills, Maintenance, Tablet, Route to PharmacyElectronically, [id number], [facility] Start Date: 04/25/17 Stop [...] 06/12/20 15:34:00 EDT, Route to Pharmacy Electronically, [facility], 168, cm, 12/03/19 10:56:00 EST, [...] 03/24/19 13:05:54 EDT, Route to Pharmacy Electronically, [id number], [facility] 3 Start Date: 03/24/19 Status: Ordered midodrine 10 mg oral tablet 1 tablet = 10 mg, By Mouth, 2 times a day, Take morning dose and next dose 5 hours later, # 60 tablet, 11 Refills, Maintenance, 06/12/20 15:33:00 EDT, [facility], 168, cm, 12/03/19 10:56:00 EST, [...] tablet, 11 Refills, Maintenance, 08/19/17 12:51:40EDT, Tablet, [facility] Start Date: 08/19/17 Status: Ordered traZODone 50 [...]
--- OUTSIDE RECORDS SUMMARY | 2023-06-25 10:03 | XMS_ITS | Continuity of Care Document ---
Author Name Unknown Organization [facility] ter Address [address] [place] [id number]- Care Team Providers Care Credit Counselor Name Role Phone Cristian CHAPARRO, Jorje Tan Primary Care Physician [place] [facility] [place](s): 03/21/23 - 03/22/[address] [address]- Encounter Diagnosis Viral syndrome(Final) - 03/22/23 Discharge Disposition: A-D/C Home Attending Physician: Jeanne Rodriguez DO Admitting Physician: Jeanne Rodriguez DO Referring Physician: Not on Staff, Referring MD [...] Maintenance, 04/25/17 12:06:43, Route to Pharmacy Electronically, [id number], [facility] Start Date: 04/25/17 Stop Date: 04/20/18 Status: Ordered atorvastatin 80 mg oral tablet = 80 mg, By Mouth, Daily at bedtime, # 30 tablet, 3 Refills, Maintenance, Tablet, Route to PharmacyElectronically, [id number], [facility] Start Date: [...] AM, # 90 tablet, Refills 1, Maintenance, 10/07/22 8:32:00 EST, Route to Pharmacy Electronically, [facility], 168, cm, 05/24/22 8:00:00 EDT, Height, 106, kg, 03/11/22 23:48:00 EDT, Dry Weight Start Date: 10/07/22 Status: Ordered Lasix 40 mg oral tablet 20 mg, 0.5, tablet, By Mouth, Daily, # 60 tablet, Refills 4, Tot. Refills 4, Maintenance, 03/24/19 13:05:54 EDT, Route to Pharmacy Electronically, [facility] Start Date: 03/24/19 Status: Ordered midodrine 10 mg oral tablet 1 tablet, By Mouth, 2 times a day, TAKE 1 DOSE IN THE MORNING & SECOND DOSE 5 HOURS LATER, # 60each, 5 Refills, Maintenance, 12/18/22 9:01:00 EST, [facility], 168, cm, 05/24/22 8:00:00 EDT, Height, [...] tablet, 11 Refills, Maintenance, 08/19/17 12:51:40EDT, Tablet, [facility] - Start Date: 08/19/17 Status: Ordered traZODone 100 mg oral tablet 100 mg, 1, tablet, By Mouth, 2 times a day, # 60 tablet, Refills 0, Tot. Refills 0, Maintenance, 10/29/21 10:14:00 EST, Route to Pharmacy Electronically, [facility] #[id number], Partial fill upon patientrequest if the prescription is for a schedule II op... Start Date: 10/29/21 Status: Ordered Problem List Condition Confirmation Course Effective Dates Status H ealth Status Informant Constipation in female Confirmed Active Dyspnea Confirmed Active Ischemic cardiomyopathy Confirmed Active Heart failure with reduced ejection fraction, NYHA class II Confirmed Active Hyperlipidemia Confirmed Active Obese class II Confirmed Active Left shoulder pain Confirmed Active Results Radiology Reports * Exam Date Time Procedure Performing Provider Status 03/21/23 6:11 PM Chest 2 Views Frontal and Lat Codie Vo; Auth (Verified) Notes: (Chest 2 Views Frontal and Lat) Reason For Exam: Chest Pain;Other: RESULT: Chest 2 Views Frontal and Lat Chest 2 Views Frontal and Lat Hx of Present Illness: states three days of increasing cough, SOB, headache, Cp when coughing. states decreased PO but no n v d. denies dysuria. speaking in full sentences.; Reason: Other:; Chest Pain; Clinical Question(s): Other: COMPARISON: CT 03/12/2022. Abdomen and pelvis CT 07/23/2019 FINDINGS: LINES AND TUBES: None. LUNGS AND PLEURA: Opacity abutting the right heart border at the right lung base is attributable to a prominent epicardial fat pad seen on the previous CT which is unchanged. There is minimal adjacent atelectasis. Otherwise the lungs are clear. No pleural effusion. No pneumothorax. HEART, MEDIASTINUM AND SARAH: Heart is at the upper limits of normal for size. Normal mediastinal and hilar contour. BONES AND SOFT TISSUES: No acute abnormality. IMPRESSION: No radiographic evidence of acute cardiopulmonary pathology. WSN: [id number] Ordering Physician: Mell Vazquez Dictated By: Blaise Johnson MD Dictated Date/Time: 03/21/23 6:17 pm Reviewed By: Blaise Johnson MD Signed By: lBaise Johnson MD Signed Date/Time: 03/21/23 6:17 pm Transcribed By: SHU Transcribed Date/Time: 03/21/23 6:16 pm Vital Signs Most recent to oldest [Reference Range]: 1 2 3 Oxygen Saturation [94-100 %] 100 % (03/21/23 10:39 PM) 100 % (03/21/23 6:45 PM) 99 % (03/21/23 4:55 PM) Pulse Rate [55-90 bpm] 67 bpm (03/21/23 10:39 PM) 77 bpm (03/21/23 6:45 PM) 91 bpm *H* (03/21/23 4:55 PM) Blood Pressure [90-138/55-84 mm Hg] 121/77mm Hg (03/21/23 10:39 PM) 115/70mm Hg (03/21/23 6:45 PM) 116/78mm Hg (03/21/23 4:55 PM) Respiratory Rate [16-30 br/min] 18 br/min (03/21/23 10:39 PM) 16 br/min (03/21/23 6:45 PM) 18 br/min (03/21/23 4:55 PM) Temperature [96.8-100.4 DegF] 97.9 DegF (03/21/23 10:39 PM) 98.6 DegF (03/21/23 6:45 PM) 98.6 DegF (03/21/23 4:55 PM) Mode of Delivery (Oxygen) Room air (03/21/23 10:39 PM) Room air (03/21/23 6:45 PM) Room air (03/21/23 4:55 PM) Blood pressure sites Arm, right (03/21/23 6:45 PM) Arm, left (03/21/23 4:55 PM) Temperature Route Oral (03/21/23 10:39 PM) Oral (03/21/23 6:45 PM) Oral (03/21/23 4:55 PM) Social History Social History Type Response Smoking Status Former smoker; Tobac co user in household: No; Other: pt quit 06/2017; entered on: 09/30/17 Sex Female EKG study * Event Display: EKG Authored Date: * Event Display: EKG Authored Date: * Event Display: ECG 12-Lead Authored Date: Please click on pdf link to open report * Event Display: ECG 12-Lead Authored Date: Ventricular Rate: 80 BPM Atrial Rate: 80 BPM P-R Interval: 120 ms QRS Duration: 80 ms Q-T Interval: 374 ms QTC Calculation(Bazett): 431 ms P Muldoon: 27 degrees R Muldoon: -16 degrees T Muldoon: -14 degrees Normal sinus rhythm Low voltage QRS Inferior infarct , age undetermined Anterolateral infarct (cited on or before 12-MAR-2022) Abnormal ECG When compared with ECG of 12-MAR-2022 00:19, Inferior infarct is now Present Confirmed by ASHLEY CORDOVA MD ([id number]) on 03/22/2023 9:11:36 AM [place]: ASHLEY CORDOVA MD Note * Michael Jeanne: PERFORM Event Display: Patient Education Leaflets Authored Date: Mononucleosis ?? [id number] Mononucleosis Mononucleosis, or mono, is a contagious viral infection. It's caused by the Majo-Quinonez virus (EBV). Most babies and children exposed to the virus get only mild flu-like symptoms or no symptoms at all. But infection is usually more serious in teens and young adults. While the virus is most active,it causes symptoms and can easily spread to others. After symptoms ease, the virus stays in the body for life., It becomes mostly inactive. But it can become active again at times, often with no symptoms. At this point it can spread to others. This is especially true in people with a weak immune system. The virus isusually??spread through saliva, often by kissing, or by sharing food or eating utensils.?? It may also spread by breastmilk, blood, or sexual contact. ??It takes about 4 to 6 weeks for symptoms to show up after exposure. Early symptoms include headache, nausea, tiredness, and general muscle aching. This is followed by sore throat and fever. Lymph glands in the neck, under the arms, or in the groin may be swollen. Symptoms usually go away in about 1 to 2 months. But they can last 4 months or longer. In the first few days to weeks, the monospot blood test may be used to diagnose this disease. But that test may be negative even though you have the infection. Other blood tests are more accurate andmay be done instead. Taking the antibiotic medicine ampicillin or amoxicillin during a mono infection may cause a skin rash. This is not serious and will fade in about a week. The rash usually is not because you had an allergic reaction to the medicine. [place] can cause your spleen to swell. The spleen is a fist-sized organ in the upper left abdomen. Itstores red blood cells and helps fight infections. Injury to a swollen spleen can cause the spleen to break open (rupture). This can cause life-threatening internal bleeding. To prevent this from happening, don't play contact sports or do strenuous activity for 8 weeks, or until your healthcare provider says it's OK. A sharp blow or pressure to the area could rupture a swollen spleen Home care ??? Rest in bed until the fever and weakness have gone away. ??? Drink plenty of fluids, but don't drink alcohol. Otherwise, you may eat a regular diet. ??? Ask your healthcare provider about using ipbs-gkr-sgukugc medicines to treat symptoms such as fever, pain, or an itchy rash. ??? Ngjb-rvl-lobxwbv throat lozenges may help soothe a sore throat. Gargling with warm salt water (1/2 teaspoon in 1 glass of warm water) may also be soothing to the throat. ??? You may return to work or school after the fever goes away and you are feeling better. Continue to follow any activity limits youhave been given. This might be not playing contact sports or doing heavy lifting. ?? Preventing spread of the virus It's very difficult for people with EBV infection not to spread it to others. People are infectiousfor a few weeks before symptoms show up. They are highly infectious when they have symptoms. They are somewhat infectious from time to time for the rest of their life. To limit the spread of the virus, don't expose others to your saliva while you are feeling symptoms of mono . Don't kiss anyone or share utensils, drinking glasses, or toothbrushes. After this, no precautions are advised or are practical. ?? Follow-up care Follow up with your healthcare provider within 1 to 2 weeks, or as advised. This is to be sure you don't have any complications. If symptoms of extreme fatigue and swollen glands last longer than 2 to 3 months, see your healthcare provider. You may need more test or other possible treatments such as corticosteroids. ?? When to seek medical advice Call your healthcare provider right away??if any of the following occur: ??? Excessive coughing ???Yellow skin or eyes ??? Trouble swallowing ??? Dizziness ??? Paleness ??? Symptoms get worse or youhave new symptoms ?? Call 911 Call 911 if any of the following occur: ??? Severe or worsening abdominal pain ??? Trouble breathing ?? Last Reviewed Date: 2021 ?? [employer] All rights reserved. This information is not intended as a substitute for professional medical care. Always follow your healthcare professional's instructions. ?? * Jeanne Rodriguez DO: PERFORM Event Display: Patient Education Leaflets Authored Date: [id number] Viral Syndrome (Adult) ?? [id number] Viral Syndrome (Adult) A viral illness may cause many symptoms such as fever. Other symptoms depend on the part of the body that the virus affects. If it settles in your nose, throat, and lungs, it may cause cough, sore throat, congestion, runny nose, headache, earache and other ear symptoms, or shortness of breath. If it settles in your stomach and intestinal tract, it may cause nausea, vomiting, cramping, and diarrhea. Sometimes it causes generalized symptoms like aching all over, feeling tired, loss of energy, or loss of appetite. A viral illness often lasts anywhere from a few days to a few weeks. But sometimes it lasts longer.In some cases, a more serious infection can look like a viral syndrome in the first few days of theillness. You may need another exam and additional tests to know the difference. Watch for the warning signs listed below for when to get medical advice. Home care Follow these guidelines for taking care of yourself at home: ??? If symptoms are severe, rest at home for the first 2 to 3 days. ??? Stay away from cigarette smoke - both your smoke and the smoke from others. ??? You may use gizv-xrx-yrbhpma??acetaminophen or ibuprofen for fever, muscle aching, and headache, unless another medicine was prescribed for this. Antibiotics aren't used to treat viral infections. If you have chronic liver or kidney disease or ever had a stomach ulcer or gastrointestinal bleeding, talk with your healthcare provider before using these medicines. No one who is younger than 18 and ill with a fever should take aspirin. It may cause severe disease or . ??? Your appetite may be poor, so a light diet is fine. Prevent dehydration by drinking 8 to 12, 8-ounce glassesof fluids each day. This may include water; orange juice; lemonade; apple, grape, and cranberry juice; clear fruit drinks; electrolyte replacement and sports drinks; and decaffeinated teas and coffee. If you've been diagnosed with a kidney disease, ask your healthcare provider how much and what types of fluids you should drink to prevent dehydration. If you have kidney disease, drinking too much fluid can cause it build up in your body and be dangerous to your health. ??? Xlrs-lbm-zndlfcl remedies won't shorten the length of the illness. But they may be helpful for symptoms such as cough, sore throat, nasal and sinus congestion, or diarrhea. Don't use decongestants if you have high blood pressure. ?? Follow-up care Follow up with your healthcare provider if you don't get better over the next week. ?? Call 911 Call 911 if any of these occur: ??? Convulsion ??? Feeling weak, dizzy, or like you are going to faint ??? Chest pain, or more than mild shortness of breath ?? When to get medical advice Call your healthcare provider right away if any of these occur: ??? Cough with lots of colored sputum (mucus) or blood in your sputum ??? Chest pain, shortness of breath, wheezing, or trouble breathing ??? Severe headache; face, neck, or ear pain ??? Severe, constant pain in the lower right side ofyour belly (abdominal) ??? Continued vomiting (can???t keep liquids down) ??? Frequent diarrhea (more than 5 times a day), or blood (red or black color) or mucus in diarrhea ??? Feeling weak, dizzy, or like you are going to faint ??? Extreme thirst ??? Fever of 100.4??F (38??C) or higher, or as directed by your provider ?? Last Reviewed Date: 2021 ?? [id number] [employer] All rights reserved. This information is not intended as a substitute for professional medical care. Always follow your healthcare professional's instructions. ?? Laboratory * [facility] , CIS S: TRANSCRIBE Blaise Johnson MD: VERIFY Event Display: Result: Authored Date: [id number] Chest 2 Views Frontal and Lat Hx of Present Illness: states three days of increasing cough, SOB, headache, Cp when coughing. states decreased PO but no n v d. denies dysuria. speaking in full sentences.; Reason: Other:; Chest Pain; Clinical Question(s): Other: COMPARISON: CT 03/12/2022. Abdomen and pelvis CT 07/23/2019 FINDINGS: LINES AND TUBES: None. LUNGS AND PLEURA: Opacity abutting the right heart border at the right lung base is attributable to a prominent epicardial fat pad seen on the previous CT which is unchanged. There is minimal adjacent atelectasis. Otherwise the lungs are clear. No pleural effusion. No pneumothorax. HEART, MEDIASTINUM AND SARAH: Heart is at the upper limits of normal for size. Normal mediastinal and hilar contour. BONES AND SOFT TISSUES: No acute abnormality. IMPRESSION: No radiographic evidence of acute cardiopulmonary pathology. WSN: [id number] Ordering Physician: Mell Vazquez Dictated By: Blaise Johnson MD Dictated Date/Time: 03/21/23 6:17 pm Reviewed By: Blaise Johnson MD Signed By: Blaise Johnson MD Signed Date/Time: 03/21/23 6:17 pm Transcribed By: SHU Transcribed Date/Time: 03/21/23 6:16 pm Patient Care team information Care Team Personnel Name: Jorje Foster MD Position: [facility] Outreach Member Role: PCP Address: Address: [address] [place] [address] Name: Lexis Root RN Position: S RN Member Role: Primary Care Nurse Name: Avani Le RN Position: S RN Member Role: Primary Care Nurse Name: *[facility], ED Attending Position: [facility] ED Attendings Patient Name: Jeanne Rodriguez DO Position: [facility] ED Medicine MD Member Role: ED Attending Physician Address: Address: [address] [place] [address] Emergency Medicine [place], [place] [address] Name: Hany Nugent RN Position: [facility] ED RN W/OE and Tasks Member Role: Patient Care Provider Care Team Related Persons Name: JORJE TAY Address: home [address] [place] [address] Name: NICOLE CORREIA Address: home [address] [place] [address]
--- OUTSIDE RECORDS SUMMARY | 2023-06-25 10:03 | XMS_ITS | Continuity of Care Document ---
Author Name Unknown Organization [facility] Address [address] [place] [address] [address] [place] [address]- Care Team Providers Care Field Training Manager Name Role Phone Cristian CHAPARRO, Negra Tan Primary Care Physician Encounter [facility] [place](s): 11/12/19 - 11/19/[address] [place] [address]- [place] Encounter Diagnosis S/P laparoscopic cholecystectomy(Discharge Diagnosis) - 11/12/19 Attending Physician: Aiden Nguyen Referring Physician: Negra Foster MD Allergies, Adverse [...] Maintenance, 04/25/17 12:06:43, Route to Pharmacy Electronically, [id number], [facility] Start Date: 04/25/17 Stop Date: 04/20/18 Status: Ordered atorvastatin 80 mg oral tablet = 80 mg, By Mouth, Daily at bedtime, # 30 tablet, 3 Refills, Maintenance, Tablet, Route to PharmacyElectronically, [id number], [facility] Start Date: 6/9/17 Stop Date: 08/23/17 Status: Ordered buPROPion 150 mg/12 hours (SR) oral tablet, extended release = 150 mg, By Mouth, 2 times a day, 0 Refills, Maintenance, 04/25/17 12:08:37, SR Tablet Start Date: 04/25/17 Status: Ordered clopidogrel 75 mg oral tablet 75 mg, 1, tablet, By Mouth, Daily, # 30 tablet, Refills 5, Tot. Refills 5, Maintenance, 05/31/19 15:06:10 EDT, Route to Pharmacy Electronically, [id number], [facility] - Start Date: 05/31/19 Status: [...] 03/24/19 13:05:54 EDT, Route to Pharmacy Electronically, [id number], [facility] Start Date: 03/24/19 Status: Ordered midodrine [...] Dyspnea(Confirmed) Active Hyperlipidemia(Confirmed) Active Tobacco user(Confirmed) Active Diagnosis Diagnosis Type Effective Dates Health Status Clinical Service Informant S/P laparoscopic cholecystectomy Discharge Diagnosis 11/12/19 Vital Signs Most recent to oldest [Reference Range]: 1 Height 166 cm (11/12/19 1:10 PM) Weight 96.8 kg (11/12/19 1:10 PM) Body Mass Index [18.5-24.99] 35.13 *>HHI* (11/12/19 1:10 PM) Weight Obtained Via Standing scale (11/12/19 1:10 PM) Social History Social History Type Response Smoking Status Former smoker; Tobac co user in household: No; Other: pt quit 06/2017; entered on: 09/30/17 Sex Female
--- OUTSIDE RECORDS SUMMARY | 2023-06-25 10:03 | XMS_ITS | Continuity of Care Document ---
Author Name Unknown Organization [facility] ter Address [address] [place] [address]- Care Team Providers Care Scrum Coach Name Role Phone Cristian CHAPARRO, Negra Tan Primary Care Physician [place] [facility] [place](s): 12/02/19 - 12/03/[address] [address]- [facility] Encounter Diagnosis CAD (coronary artery disease)(Final) - 12/02/19 Discharge Disposition: A-D/C Home Attending Physician: Miguel Drew MD Admitting Physician: Paty Menendez MD Referring Physician: Not on Staff, Referring [...] Maintenance, 04/25/17 12:06:43, Route to Pharmacy Electronically, [id number], [facility] Start Date: 04/25/17 Stop Date: 04/20/18 Status: Ordered atorvastatin 80 mg oral tablet = 80 mg, By Mouth, Daily at bedtime, # 30 tablet, 3 Refills, Maintenance, Tablet, Route to PharmacyElectronically, [id number], [facility] Start Date: 04/25/17 Stop Date: 08/23/17 [...] 05/31/19 15:06:10 EDT, Route to Pharmacy Electronically, [id number], [facility] - Start Date: 05/31/19 [...] 03/24/19 13:05:54 EDT, Route to Pharmacy Electronically, [id number], [facility] Start Date: 03/24/19 Status: Ordered midodrine [...] Hyperlipidemia(Confirmed) Active Left shoulder pain(Confirmed) Active Results Radiology Reports * Exam Date Time Procedure Performing Provider Status 12/02/19 1:07 PM Chest 2 Views Frontal and Lat Alla Ruiz; Raheem (Verified) Notes: (Chest 2 Views Frontal and Lat) Reason For Exam: Chest Pain;Other: RESULT: Chest 2 Views Frontal and Lat Chest 2 Views Frontal and Lat INDICATION: Left shoulder pain radiating down to the arm. COMPARISON: Multiple priors, most recent 07/23/2019. FINDINGS: LINES AND TUBES: None. LUNGS AND PLEURA: Clear lungs. Normal pulmonary vascularity. No pleural effusion. No pneumothorax. HEART, MEDIASTINUM AND SARAH: Heart is normal in size. Normal mediastinal and hilar contour. BONES AND SOFT TISSUES: No acute osseous abnormality. Surgical clips in the right upper quadrant. IMPRESSION: No evidence of acute abnormality. I have personally reviewed the images and I agree with this report. WSN: [id number] Dictated By: Dann Paul MD Dictated Date/Time: 12/02/19 1:31 pm Reviewed By: Blaise uBstillo MD Signed By: Blaise Bustillo MD Signed Date/Time: 12/02/19 1:36 pm Transcribed By: SHU Transcribed Date/Time: 12/02/19 1:22 pm Vital Signs Most recent to oldest [Reference Range]: 1 2 3 Height 168 cm (12/03/19 10:56 AM) 168 cm (12/03/19 7:28 AM) 168 cm (12/03/19 4:22 AM) Weight 95.2 kg (12/03/19 7:06 AM) 95.2 kg (12/02/19 4:19 PM) 95.2 kg (12/02/19 11:13 AM) Oxygen Saturation [94-100 %] 100 % (12/03/19 10:56 AM) 99 % (12/03/19 7:28 AM) 100 % (12/03/19 4:22 AM) Pulse Rate [55-90 bpm] 70 bpm (12/03/19 10:56 AM) 78 bpm (12/03/19 8:32 AM) 78 bpm (12/03/19 7:28 AM) Body Mass Index [18.5-24.99] 33.73 *>HHI* (12/02/19 4:19 PM) Blood Pressure [90-138/55-84 mm Hg] 109/67mm Hg (12/03/19 10:56 AM) 87/50mm Hg *L* (12/03/19 8:32 AM) 87/50mm Hg *L* (12/03/19 7:28 AM) Respiratory Rate [16-30 br/min] 20 br/min (12/03/19 10:56 AM) 18 br/min (12/03/19 9:32 AM) 20 br/min (12/03/19 7:28 AM) Temperature [96.8-100.4 DegF] 98.0 DegF (12/03/19 10:56 AM) 98.0 DegF (12/03/19 7:28 AM) 98.2 DegF (12/03/19 4:22 AM) Mode of Delivery (Oxygen) Room air (12/03/19 10:56 AM) Room air (12/03/19 7:28 AM) Room air (12/03/19 4:22 AM) Blood pressure sites Arm, right (12/03/19 10:56 AM) Arm, right (12/03/19 7:28 AM) Arm, right (12/03/19 4:22 AM) Temperature Route Oral (12/03/19 10:56 AM) Oral (12/03/19 7:28 AM) Oral (12/03/19 4:22 AM) Dry Weight 95.2 kg (12/02/19 4:19 PM) 95.2 kg (12/02/19 11:13 AM) 95.2 kg (12/02/19 11:10 AM) Weight Obtained Via Standing scale (12/02/19 11:10 AM) Dry Weight Obtained Via Standing scale (12/02/19 11:10 AM) Social History Social History Type Response Smoking Status Former smoker; Tobac co user in household: No; Other: pt quit 06/2017; entered on: 09/30/17 Sex Female
--- OUTSIDE RECORDS SUMMARY | 2023-06-25 10:03 | XMS_ITS | Continuity of Care Document ---
Author Name Unknown Organization [facility] Address [address] [place] [address] [address] [place] [address]- Care Team Providers Care Carpet Floor Layer Apprentice Name Role Phone Cristian CHAPARRO, Negra Tan Primary Care Physician [place] [facility] [place] - 11/22/[address] [place] [address]- [facility] Attending Physician: Monae Mckoy Admitting Physician: Monae [...] Maintenance, 04/25/17 12:06:43, Route to Pharmacy Electronically, [id number], [facility] Start Date: 04/25/17 Stop Date: 04/20/18 Status: Ordered atorvastatin 80 mg oral tablet = 80 mg, By Mouth, Daily at bedtime, # 30 tablet, 3 Refills, Maintenance, Tablet, Route to PharmacyElectronically, [id number], [facility] Start Date: 04/25/17 Stop Date: 10/7/17 Status: Ordered buPROPion 150 mg/12 hours (SR) oral tablet, extended release = 150 mg, By Mouth, 2 times a day, 0 Refills, Maintenance, 04/25/17 12:08:37, SR Tablet Start Date: 04/25/17 Status: Ordered clopidogrel 75 mg oral tablet 75 mg, 1, tablet, By Mouth, Daily, # 30 tablet, Refills 5, Tot. Refills 5, Maintenance, 05/31/19 15:06:10 EDT, Route to Pharmacy Electronically, [id number], [facility] - Start Date: 05/31/19 [...] 03/24/19 13:05:54 EDT, Route to Pharmacy Electronically, [id number], [facility] 3 Start Date: 03/24/19 Status: Ordered midodrine [...]
--- OUTSIDE RECORDS SUMMARY | 2023-06-25 10:03 | XMS_ITS | Continuity of Care Document ---
Author Name Unknown Organization [facility] Address [address] [place] [address]- Care Team Providers Care Cruller Maker Machine Name Role Phone Cristian CHAPARRO, Negra Tan Primary Care Physician Encounter [facility] [place] Date(s): 03/21/23 - 04/20/23 [facility] [address] [place] [address]- Allergies, Adverse Reactions, Alerts Substance Reaction Severity [...] Maintenance, 04/25/17 12:06:43, Route to Pharmacy Electronically, [id number], [facility] Start Date: 04/25/17 Stop Date: 04/20/18 Status: Ordered atorvastatin 80 mg oral tablet = 80 mg, By Mouth, Daily at bedtime, # 30 tablet, 3 Refills, Maintenance, Tablet, Route to PharmacyElectronically, [id number], [facility] Start Date: 04/25/17 Stop [...] 04/10/23 8:06:00 EDT, Route to Pharmacy Electronically, [facility], 168, cm, 03/25/23 12:59:00 EDT, Height, 106, kg, 03/11/22 23:48:00 EDT, Dry Weight Start Date: 04/10/23 Status: Ordered Lasix 40 mg oral tablet 20 mg, 0.5, tablet, By Mouth, Daily, # 60 tablet, Refills 4, Tot. Refills 4, Maintenance, 03/24/19 13:05:54 EDT, Route to Pharmacy Electronically, [facility] 3 Start Date: 03/24/19 Status: Ordered midodrine 10 mg oral tablet 1 tablet, By Mouth, 2 times a day, TAKE 1 DOSE IN THE MORNING & SECOND DOSE 5 HOURS LATER, # 60each, 5 Refills, Maintenance, 12/18/22 9:01:00 EST, [facility], 168, cm, 05/24/22 8:00:00 EDT, [...] 10/29/21 10:14:00 EST, [id number] Partial fill upon patientrequest if the prescription [...] quit 06/2017; entered on: 09/30/17 Sex Female Patient Care team information Care Team Personnel Name: Negra Foster MD Position: [facility] Outreach Member Role: PCP Address: Address: [address] [place] [address] Name: Lexis Root RN Position: [facility] RN Member Role: Primary Care Nurse Name: Avani Le RN Position: [facility] RN Member Role: Primary Care Nurse Care Team Related Persons Name: NEGRA TAY Address: home [address] [place] [address] Name: NICOLE CORREIA Address: home [address] [place] [address]
--- OUTSIDE RECORDS SUMMARY | 2023-06-25 10:03 | XMS_ITS | Continuity of Care Document ---
Author Name Unknown Organization [facility] Address [address] [place] [address]- Care Team Providers Care Call Center Operator Name Role Phone Cristian CHAPARRO, Negra Tan Primary Care Physician Encounter [facility] Date(s): 03/07/21 - 04/06/21 [facility] [address] [place] [id number] Allergies, Adverse Reactions, Alerts Substance Reaction Severity [...] Maintenance, 04/25/17 12:06:43, Route to Pharmacy Electronically, [id number], [facility] Start Date: 04/25/17 Stop Date: 04/20/18 Status: Ordered atorvastatin 80 mg oral tablet = 80 mg, By Mouth, Daily at bedtime, # 30 tablet, 3 Refills, Maintenance, Tablet, Route to PharmacyElectronically, [id number], [facility] Start Date: 04/25/17 [...] 03/07/21 16:18:00 EDT, Route to Pharmacy Electronically, [facility], 168, cm, 10/25/20 15:56:00 EST, Height, 102.1, kg, 10/24/20 22:52:00 EST,... Start Date: 03/07/21 Stop Date: 10/03/21 Status: Ordered Colace sodium 100 mg oral [...] 03/24/19 13:05:54 EDT, Route to Pharmacy Electronically, [id number], [facility] 3 Start Date: 03/24/19 Status: Ordered midodrine 10 mg oral tablet 1 tablet = 10 mg, By Mouth, 2 times a day, Take morning dose and next dose 5 hours later, # 60 tablet, 11 Refills, Maintenance, 06/12/20 15:33:00 EDT, [facility], 168, cm, 12/03/19 10:56:00 EST, [...] tablet, 11 Refills, Maintenance, 08/19/17 12:51:40EDT, Tablet, [facility] - Start Date: 08/19/17 Status: [...]
--- OUTSIDE RECORDS SUMMARY | 2023-06-25 10:03 | XMS_ITS | Continuity of Care Document ---
Author Name Unknown Organization [facility] Address [address] [place] [address]- Care Team Providers Care Lacquer Polisher Name Role Phone Cristian CHAPARRO, Negra Tan Primary Care Physician Encounter [place] Date(s): 12/02/19 - 12/12/19 [facility] [address] [place] [address]- [facility] Attending Physician: Monae Mckoy Admitting [...] Maintenance, 04/25/17 12:06:43, Route to Pharmacy Electronically, [id number], [facility] Start Date: 04/25/17 Stop Date: 04/20/18 Status: Ordered atorvastatin 80 mg oral tablet = 80 mg, By Mouth, Daily at bedtime, # 30 tablet, 3 Refills, Maintenance, Tablet, Route to PharmacyElectronically, [id number], [facility] Start Date: 04/25/17 Stop [...] tablet, Refills 6, Tot. Refills 6, Maintenance, 12/08/19 14:06:00 EST, Route to Pharmacy Electronically, [facility], 168, cm, 12/03/2009:56:00 EST, Height, 95.2, kg, 12/02/19 16:19:00 E... Start Date: 12/08/19 Status: Ordered Colace sodium 100 mg oral [...] 03/24/19 13:05:54 EDT, Route to Pharmacy Electronically, [id number], [facility] Start Date: 03/24/19 Status: Ordered [...]
--- OUTSIDE RECORDS SUMMARY | 2023-06-25 10:03 | XMS_ITS | Continuity of Care Document ---
Author Name Unknown Organization [facility] Address [address] [place] [address]- Care Team Providers Care Creel Hand Name Role Phone Negra Foster MD Primary Care Physician [place] [facility] [place] - 12/28/20 [facility] [address] [place] [id number] Attending Physician: Enrique Lundberg DO Admitting Physician: Enrique Lundberg DO Referring Physician: Negra Foster MD Allergies, Adverse [...] Maintenance, 04/25/17 12:06:43, Route to Pharmacy Electronically, [id number], [facility] Start Date: 04/25/17 Stop Date: 04/20/18 Status: Ordered atorvastatin 80 mg oral tablet = 80 mg, By Mouth, Daily at bedtime, # 30 tablet, 3 Refills, Maintenance, Tablet, Route to PharmacyElectronically, [id number], [facility] Start Date: 04/25/17 Stop Date: [...] 06/12/20 15:34:00 EDT, Route to Pharmacy Electronically, [facility], 168, cm, 12/03/19 10:56:00 EST, [...] 03/24/19 13:05:54 EDT, Route to Pharmacy Electronically, [id number], [facility] 3 Start Date: 03/24/19 Status: Ordered midodrine 10 mg oral tablet 1 tablet = 10 mg, By Mouth, 2 times a day, Take morning dose and next dose 5 hours later, # 60 tablet, 11 Refills, Maintenance, 06/12/20 15:33:00 EDT, [facility], 168, cm, 12/03/19 10:56:00 EST, [...] tablet, 11 Refills, Maintenance, 08/19/17 12:51:40EDT, Tablet, [facility] Start Date: 08/19/17 Status: Ordered traZODone 50 [...]
--- OUTSIDE RECORDS SUMMARY | 2023-06-25 10:03 | XMS_ITS | Continuity of Care Document ---
Author Name Unknown Organization [facility] Address [address] [place] [address]- Care Team Providers Care Structural Iron Erector Name Role Phone Cristian CHAPARRO, Negra Tan Primary Care Physician Encounter [facility] Date(s): 10/27/19 - 10/27/[address] [address]- [facility] Discharge Disposition: A-D/C Home Attending Physician: Elise Groves MD Admitting Physician: Elise Groves MD Referring Physician: Elise Groves MD Allergies, Adverse Reactions, Alerts Substance Reaction [...] Maintenance, 04/25/17 12:06:43, Route to Pharmacy Electronically, [id number], [facility] Start Date: 04/25/17 Stop Date: 04/20/18 Status: Ordered atorvastatin 80 mg oral tablet = 80 mg, By Mouth, Daily at bedtime, # 30 tablet, 3 Refills, Maintenance, Tablet, Route to PharmacyElectronically, [id number], [facility] Start Date: 04/25/17 Stop Date: [...] 05/31/19 15:06:10 EDT, Route to Pharmacy Electronically, [id number], [facility] - Start Date: 05/31/19 Status: [...] 03/24/19 13:05:54 EDT, Route to Pharmacy Electronically, [id number], [facility] Start Date: 03/24/19 Status: Ordered [...] Dyspnea(Confirmed) Active Hyperlipidemia(Confirmed) Active Tobacco user(Confirmed) Active Procedures Procedure Date Related Diagnosis Body Site Status Laparoscopy, surgical; cholecystectomy Completed Vital Signs Most recent to oldest [Reference Range]: 1 2 3 Height 166 cm (10/27/19 6:52 AM) 166 cm (10/21/19 9:35 AM) Weight 96 kg (10/27/19 6:52 AM) 95.1 kg (10/21/19 9:35 AM) Oxygen Saturation [94-100 %] 100 % (10/27/19 11:45 AM) 100 % (10/27/19 11:30 AM) 100 % (10/27/19 11:15 AM) Pulse Rate [55-90 bpm] 83 bpm (10/27/19 6:52 AM) Body Mass Index [18.5-24.99] 34.84 *>HHI* (10/27/19 6:52 AM) 34.51 *>HHI* (10/21/19 9:35 AM) Blood Pressure [90-138/55-84 mm Hg] 97/67mm Hg (10/27/19 11:45 AM) 99/59mm Hg (10/27/19 11:30 AM) 93/62mm Hg (10/27/19 11:15 AM) Respiratory Rate [16-30 br/min] 15 br/min *L* (10/27/19 11:52 AM) 16 br/min (10/27/19 11:50 AM) 15 br/min *L* (10/27/19 11:45 AM) Temperature [96.8-100.4 DegF] 97.9 DegF (10/27/19 11:45 AM) 98.0 DegF (10/27/19 9:21 AM) 98 DegF (10/27/19 6:52 AM) Mode of Delivery (Oxygen) Room air (10/27/19 11:45 AM) Room air (10/27/19 10:00 AM) Room air (10/27/19 9:45 AM) Blood pressure sites Arm, right (10/27/19 10:00 AM) Arm, right (10/27/19 9:45 AM) Arm, right (10/27/19 9:30 AM) Temperature Route Temporal (10/27/19 9:21 AM) Temporal (10/27/19 6:52 AM) Dry Weight 96 kg (10/27/19 6:52 AM) Weight Obtained Via Standing scale (10/27/19 6:52 AM) Standing scale (10/21/19 9:35 AM) Dry Weight Obtained Via Standing scale (10/27/19 6:52 AM) Social History Social History Type Response Smoking Status Former smoker; Tobac co user in household: No; Other: pt quit 06/2017; entered on: 09/30/17 Sex Female
--- OUTSIDE RECORDS SUMMARY | 2023-06-25 10:03 | XMS_ITS | Continuity of Care Document ---
Author Name Unknown Organization [facility] ter Address [address] [place] [address]- Care Team Providers Care Software Development Coordinator Name Role Phone Cristian CHAPARRO, Negra Tan Primary Care Physician [place] [facility] [place](s[place] 03/11/22 - 03/12/[address] [address]- Discharge Disposition: A-D/C Home Attending Physician: Nithin Peña MD Admitting Physician: Nithin Peña MD Referring Physician: Not on Staff, Referring [...] Maintenance, 04/25/17 12:06:43, Route to Pharmacy Electronically, [id number], [facility] Start Date: 04/25/17 Stop Date: 04/20/18 Status: Ordered atorvastatin 80 mg oral tablet = 80 mg, By Mouth, Daily at bedtime, # 30 tablet, 3 Refills, Maintenance, Tablet, Route to PharmacyElectronically, [id number], [facility] Start Date: 04/25/17 [...] 03/07/21 16:18:00 EDT, Route to Pharmacy Electronically, [facility], 168, cm, 10/25/20 15:56:00 EST, Height, 102.1, kg, 10/24/20 22:52:00 EST,... Start Date: 03/07/21 Stop Date: 10/03/21 Status: Ordered Lasix 40 mg oral tablet 40 mg, 1, tablet, By Mouth, Daily, # 60 tablet, Refills 4, Tot. Refills 4, Maintenance, 03/24/19 13:05:54 EDT, Route to Pharmacy Electronically, [id number], [facility] Start Date: 03/24/19 Status: [...] 10/29/21 10:14:00 EST, Route to Pharmacy Electronically, [id number], Partial fill upon patientrequest if the prescription [...] Exam Date Time Procedure Performing Provider Status 03/12/22 12:15 AM Chest 2 Views Frontal and Lat Kylie Schmitz; Raheem (Verified) Notes: (Chest 2 Views Frontal and Lat) Reason For Exam: Chest Pain;Other: RESULT: Chest 2 Views Frontal and Lat Chest 2 Views Frontal and Lat Reason: Chest Pain COMPARISON: Chest radiograph 10/28/2021 FINDINGS: LINES AND TUBES: None. LUNGS AND PLEURA: Clear lungs. Normal pulmonary vascularity. No pleural effusion. No pneumothorax. HEART, MEDIASTINUM AND SARAH: Heart is normal in size. Normal upper mediastinal and hilar contour. BONES AND SOFT TISSUES: No acute abnormality. Mild degenerative changes of the thoracic spine. IMPRESSION: No acute abnormality. I have personally reviewed the images and I agree with this report. WSN: [id number] Ordering Physician: Malinda See Dictated By: Jose A Barillas DO Dictated Date/Time: 03/12/22 8:08 am Reviewed By: Sylvester Cedeno MD Signed By: Sylvester Cedeno MD Signed Date/Time: 03/12/22 8:13 am Transcribed By: SHU Transcribed Date/Time: 03/12/22 7:49 am Vital Signs Most recent to oldest [Reference Range]: 1 2 3 Height 168 cm (03/11/22 11:48 PM) Weight 106 kg (03/11/22 11:48 PM) Oxygen Saturation [94-100 %] 100 % (03/12/22 4:05 AM) 100 % (03/12/22 12:49 AM) 98 % (03/11/22 11:30 PM) Pulse Rate [55-90 bpm] 81 bpm (03/12/22 4:05 AM) 70 bpm (03/12/22 12:49 AM) 78 bpm (03/11/22 11:30 PM) Blood Pressure [90-138/55-84 mm Hg] 108/71mm Hg (03/12/22 4:05 AM) 108/68mm Hg (03/12/22 12:49 AM) 117/77mm Hg (03/11/22 11:30 PM) Respiratory Rate [16-30 br/min] 20 br/min (03/12/22 4:05 AM) 18 br/min (03/12/22 12:49 AM) 18 br/min (03/11/22 11:30 PM) Temperature [96.8-100.4 DegF] 98.3 DegF (03/12/22 4:05 AM) 98.3 DegF (03/12/22 12:49 AM) 98.7 DegF (03/11/22 11:30 PM) Mode of Delivery (Oxygen) Room air (03/12/22 4:05 AM) Room air (03/12/22 12:49 AM) Room air (03/11/22 11:30 PM) Blood pressure sites Arm, right (03/12/22 4:05 AM) Arm, left (03/12/22 12:49 AM) Arm, right (03/11/22 11:30 PM) Temperature Route Oral (03/12/22 4:05 AM) Oral (03/12/22 12:49 AM) Oral (03/11/22 11:30 PM) Dry Weight 106 kg (03/11/22 11:48 PM) Social History Social History Type Response Smoking Status Former smoker; Tobac co user in household: No; Other: pt quit 06/2017; entered on: 09/30/17 Sex Female
--- NOTE | 2023-06-25 10:40 | ED.GENADULT ---
HPI - General Adult General Chief complaint: General Medical Stated complaint: spider bite, allergic reaction? Time Seen by Provider: 06/25/23 09:57 Source: patient and RN notes reviewed Mode of arrival: ambulatory Limitations: no limitations History of Present Illness HPI narrative: This is a 42-year-old female, with a history of CHF, presenting to the emergency department with complaints of ?Insect bite to her right lower leg. She states that on of last week she noticed an area that appeared to be a bug bite. She states that she has been attempting to keep area clean and dry but has noticed that the area has been increasing in redness, pain. Patient denies any fevers, chills. Denies any shortness of breath or chest pain. She is otherwise feeling well. MD complaint: Cellulitis Onset (ago): day(s) Location: lower extremity Radiation: non-radiation Severity: mild Quality: aching Pain Consistency: constant Relieving factors: none Exacerbating factors: none Associated symptoms: denies other symptoms Treatments prior to arrival: none Related Data Home Medications Medication Instructions Recorded Confirmed acetaminophen 500 mg tablet 1,000 mg PO Q6H PRN fever 08/02/22 08/02/22 amitriptyline 10 mg tablet 10 mg PO BEDTIME 08/02/22 08/02/22 aspirin 81 mg tablet,delayed 81 mg PO QAM 08/02/22 08/02/22 release atorvastatin 80 mg tablet 80 mg PO BEDTIME 08/02/22 08/02/22 bupropion HCl 150 mg tablet,12 hr 150 mg PO 08/02/22 08/02/22 sustained-release clopidogrel 75 mg tablet 75 mg PO QAM 08/02/22 08/02/22 furosemide 40 mg tablet 40 mg PO QAM 08/02/22 08/02/22 midodrine 10 mg tablet 0 mg PO 08/02/22 08/02/22 trazodone 100 mg tablet 100 - 150 mg PO BEDTIME 08/02/22 08/02/22 Previous Rx's Medication Instructions Recorded ibuprofen 600 mg tablet 600 mg PO Q6H PRN pain #30 tabs 09/25/20 fluticasone propionate 50 1 spray intranasal Q12H #16 grams 03/19/21 mcg/actuation nasal spray,suspension (Flonase Allergy Relief) cyclobenzaprine 10 mg tablet 10 mg PO TID PRN muscle spasm #14 01/16/23 tabs lidocaine 5 % topical patch 1 patch topical DAILY #15 ea 01/16/23 cephalexin 250 mg capsule 500 mg PO Q6H 7 days #56 caps 06/25/23 doxycycline hyclate 100 mg capsule 100 mg PO BID #14 caps 06/25/23 Allergies Allergy/AdvReac Type Severity Reaction Status Date / Time midodrine [MIDODRINE] Allergy Severe HIGHER Verified 08/02/22 08:13 DOSES 40MG NUMBNESS AND SOB lisinopril [LISINOPRIL] AdvReac Intermediate UPSET Verified 08/02/22 08:13 STOMACH Review of Systems Review of Systems: Yes all other systems are reviewed and are negative Constitutional: Constitutional: Reports as per [facility] Past Medical History Attestation statement: The following information was validated with the patient. 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 Physical Exam ED Vital Signs: Vital Signs - 24 hr 06/25/23 09:35 Temperature 98.9 F Pulse Rate 80 Respiratory Rate 18 Blood Pressure 114/74 Pulse Oximetry 99 Oxygen Delivery Method Room Air BMI result Body Mass Index 45.7 Const General: cooperative, comfortable and no acute distress Orientation/consciousness: patient oriented x3 Limitations: no limitations [facility] Head: Yes normal to inspection, Yes normocephalic and Yes atraumatic Ears: hearing grossly normal bilaterally General nose exam: Normal external nose present Face and sinus: Yes normal facial exam Mouth: Normal oral and palatal mucosa present, oropharynx normal and moist mucous membranes Throat: Yes posterior oropharynx normal Eyes General: appearance normal, both eyes and all related structures Eyelids: Yes eyelids normal Conjunctivae: conjunctivae normal Sclerae: sclerae normal Pupils: Equal, round and reactive pupils present EOM: EOMs intact bilaterally Neck Neck: Yes normal visual inspection, Yes full ROM and Yes no lymphadenopathy Lymphatic: no lymphadenopathy noted Chest Chest palpation & inspection: normal inspection of the chest Resp Effort & Inspection: normal respiratory effort and able to speak in complete sentences Auscultation: clear to auscultation bilaterally, no crackles, no rales, no rhonchi and no wheezes Cardio Rate: regular rate Rhythm: regular rhythm Heart sounds: S1 normal heart sound present and S2 normal heart sound present GI Inspection: Yes normal to inspection Skin Other: Right anterior gerardo with 2cm x 2cm area of erythema with central ulceration noted. No active drainage, fluctuance or induration. Mildly ttp with warmth. Trauma: no lacerations or abrasions Wounds: no wounds Neuro General: patient oriented x3 and moves all extremities Cranial nerves: Yes Equal, round and reactive pupils present Extrem General: Yes normal to inspection Right upper extremity: normal to inspection Left upper extremity: normal to inspection Right lower extremity: normal to inspection Left lower extremity: normal to inspection Medications Administered Discontinued Medications Generic Name Dose Route Start Last Admin Trade Name Freq PRN Reason Stop Dose Admin Diphtheria/Tetanus/Acell Pertussis 0.5 ml 06/25/23 10:52 06/25/23 11:08 Diphth,Pertus(Acell),Tet Adult 0.5 Ml Syringe IM 06/25/23 10:53 0.5 ml .ONCE ONE Administration Medical Decision Making Medical Decision Making MDM Narrative: 42 year old female presenting to the emergency department for evaluation of insect bite on the right anterior gerardo. On arrival, patient is afebrile, all other vital signs within normal limits. ?Patient unsure of when she received her last tetanus, updated in department today. Patients initial presentation of local erythema, warmth in tenderness concerning for cellulitis. Pain to light touch around the erythematous area, no lymphangitic spread visible, no fluid pockets or fluctuance concerning for abscess. Low clinical suspicion for osteomyelitis or DVT. No pain out of proportion or rapid progression concerning for necrotizing fasciitis. No evidence of serious bacterial illness requiring admission for IV antibiotics. Patient is non-toxic appearing, vital signs stable. Low risk for treatment failure based on history. Will discharge home with PO antibiotics and return precautions given to patient. Aarea of erythema outlined with skin marker, advised to return if erythema spreads beyond this. Patient understands and agrees with plan. Patient stable for discharge. Differential Diagnosis Differential Diagnoses: The differential diagnosis associated with the presentation includes see above Discharge Plan Discharge Clinical Impression: Cellulitis Patient Disposition: Home, Self-Care Instructions: Cellulitis (ED) Additional Instructions: It appears that you have the start of the skin infection. Please take prescribed antibiotics as directed. Complete the full course even if your feeling better. Apply warm compressed 5-6 times per day. Keep wound clean and dry. Watch for any increased redness or swelling to your leg. Please return for re-evaluation if this occurs. If any new or worsening symptoms occur including but not limited to fevers, chills, worsening redness, swelling, please return for re-evaluation. Prescriptions: New doxycycline hyclate 100 mg capsule 100 mg PO BID Qty: 14 0RF cephalexin 250 mg capsule 500 mg PO Q6H 7 Days Qty: 56 0RF No Action ibuprofen 600 mg tablet 600 mg PO Q6H PRN (Reason: pain) Qty: 30 0RF fluticasone propionate [Flonase Allergy Relief] 50 mcg/actuation spray,suspension 1 spray intranasal Q12H Qty: 16 0RF Rx Instructions: administer into each nostril cyclobenzaprine 10 mg tablet 10 mg PO TID PRN (Reason: muscle spasm) Qty: 14 0RF lidocaine 5 % adhesive patch,medicated 1 patch topical DAILY Qty: 15 0RF Rx Instructions: leave on most painful area for up to 12 hrs trazodone 100 mg tablet 100 - 150 mg PO BEDTIME bupropion HCl 150 mg tablet sustained-release 12 hr 150 mg PO midodrine 10 mg tablet 0 mg PO amitriptyline 10 mg tablet 10 mg PO BEDTIME aspirin 81 mg tablet,delayed release (DR/EC) 81 mg PO QAM atorvastatin 80 mg tablet 80 mg PO BEDTIME clopidogrel 75 mg tablet 75 mg PO QAM furosemide 40 mg tablet 40 mg PO QAM acetaminophen 500 mg tablet 1,000 mg PO Q6H PRN (Reason: fever) Interventions: ED Discharge Assessment Last Done: 06/25/23 11:18 Discharge Date/Time: 06/25/23 11:19
[2023-06-25] MEDS: Diphth,Pertus(ACell),Tet Adult 0.5 ML SYRINGE IM (11:08)
== END 2023-06-25 11:19 | disposition home or self-care (01) ==
PROVIDERS: Emergency Provider Student in an Organized Health Care Education/Training Program; PCP Internal Medicine
DX: S80.811A Abrasion, right lower leg, initial encounter (principal); L03.115 Cellulitis of right lower limb; X58.XXXA Exposure to other specified factors, initial encounter; Y93.9 Activity, unspecified; Y92.9 Unspecified place or not applicable; Y99.9 Unspecified external cause status; Z23 Encounter for immunization
CPT/HCPCS: 90471; 90715; 99283; 99284

== ENCOUNTER 2023-06-26 09:22 | Outpatient (REF) | payer MEDICAID, SELFPAY ==
[2023-06-26 12:12] LABS: Estimated Average Glucose 108 mg/dL; Hemoglobin A1c % 5.4 %
[2023-06-26 12:26] LABS: Glucose Random 98 mg/dL (60-115)
[2023-06-26 12:49] LABS: Folate 7.6 ng/mL (> or = 4.0); Vitamin B12 253 pg/mL (200-900)
[2023-07-01 03:43] LABS: Lyme Abs Screen <0.90 index
[2023-07-01 22:03] LABS: Vitamin B1 9 nmol/L (8-30)
== END 2023-06-26 09:23 | disposition home or self-care (01) ==
LOC: HO.HHCL 09:22
PROVIDERS: Visit Provider Internal Medicine
DX: R20.2 Paresthesia of skin (principal); E66.9 Obesity, unspecified
CPT/HCPCS: 36415; 82607; 82746; 82947; 83036; 84425; 86617; 86618

== ENCOUNTER 2023-10-27 09:46 | Emergency (ER) | payer MEDICAID, SELFPAY ==
--- NOTE | ~2023-10-27 | CT_ITS ---
EXAMINATION: CT ABDOMEN AND PELVIS WITH CONTRAST CLINICAL INFORMATION: Right lower quadrant abdominal pain. COMPARISON: Abdominal ultrasound 09/26/2016 TECHNIQUE: Multidetector volumetric images were obtained from the superior aspect of the liver through the pubic symphysis following administration 85 mL of Omnipaque 350 intravenous contrast. Sagittal and coronal reformatted images were obtained on the technologist's workstation. Oral contrast: No This CT examination was performed using dose optimization techniques as appropriate, variously including the following: *Automated exposure control *Adjustment of mA and/or kV according to patient size (this includes techniques or standardized protocols for targeted exams where dose is matched to indication/reason for exam; i.e. extremities or head) *Use of iterative reconstruction technique DLP: 895 mGy-cm FINDINGS: LUNG BASES: 5 mm left lower lobe nodule on image 1 of series 7. Small hiatal hernia. LIVER, GALLBLADDER, AND BILIARY TREE: The liver is normal in size and contour. No focal hepatic lesion or biliary ductal dilatation is present. The gallbladder is surgically absent. PANCREAS: 1.2 x 1.9 x 1.4 cm hypodensity within the tail the pancreas. No dilatation of the main pancreatic duct. SPLEEN: Not enlarged. ADRENAL GLANDS: No adrenal mass. KIDNEYS AND URETERS: The kidneys are symmetric in size and enhancement. No hydronephrosis. No perinephric stranding. BLADDER: Decompressed. GASTROINTESTINAL TRACT: Marked wall thickening of the distal stomach/duodenum/proximal jejunum. No small bowel obstruction. Appendix is within normal limits. ABDOMINAL WALL: No significant hernia is appreciated. LYMPH NODES: No bulky lymphadenopathy. VASCULAR: Normal caliber abdominal aorta. PELVIC VISCERA: Unremarkable. OSSEOUS STRUCTURES: No destructive bone lesions. CT/CT abdomen pelvis w IV con IMPRESSION: Wall thickening of the distal stomach, duodenum and proximal jejunum. This may represent an acute infectious or inflammatory process. Correlation with direct visualization is advised. 1.2 x 1.9 x 1.4 cm hypodensity in the tail the pancreas. No dilatation of the main pancreatic duct. No peripancreatic stranding. Further characterization with MRI/MRCP is recommended. 5 mm left lower lobe pulmonary nodule.
--- NOTE | ~2023-10-27 | US_ITS ---
EXAMINATION: US PELVIS CLINICAL INFORMATION: Right lower quadrant pain. LMP unknown. COMPARISON: CT abdomen/pelvis 10/27/2023 TECHNIQUE: Ultrasound of the pelvis is performed using both transabdominal and transvaginal transducers along with Doppler. Transvaginal imaging is performed due to inadequate visualization transabdominally. FINDINGS: Uterus: The uterus is retroverted. Uterine echotexture is heterogeneous. The uterus measures 7.9 x 5.1 x 6.1 cm. The endometrial stripe measures 0.9 cm in thickness. Right posterior fibroid measures 0.9 x 0.7 x 1.1 cm. Adnexa: Both ovaries are visualized. There is normal color flow to the adnexa. Right ovary measures 2.8 x 2.5 x 2.7 cm. Left ovary measures 2.8 x 1.2 x 2.2 cm. No significant free fluid in pelvis. US/US pelvic and transvaginal IMPRESSION: Small uterine fibroid.
[2023-10-27 10:45] VITALS: BP 113/72; PULSE 76; RESP 18; TEMP 36.2; O2SAT 98; BMI 36.5
[2023-10-27 12:15] VITALS: BP 109/72; PULSE 68; RESP 14; TEMP 36.6; O2SAT 98
[2023-10-27 12:26] LABS: MANUAL DIFF FLAG NO
[2023-10-27 12:30] LABS: Appearance Urine Clear; Color Urine Yellow; Glucose Urine UA Negative (Negative); Leukocyte Esterase Urine Negative (Negative); Nitrite Urine Negative (Negative); PH 6.5 (5.0-9.0); Specific Gravity - Urine 1.015 (1.005-1.025); Urine Blood Negative (Negative); Urine Ketones Negative (Negative); Urine Protein Negative (Neg-Trace)
[2023-10-27 12:32] LABS: UPreg QC Valid YES; Urine Pregnancy NEGATIVE (NEGATIVE)
[2023-10-27 12:36] LABS: Basophils Percent Auto 0.3 % (0-2); Eosinophils Absolute Auto 0.1 X10*3/uL (0.0-0.4); Hematocrit 40.3 % (37.0-47.0); Hemoglobin 12.6 g/dl (12.0-16.0); Imm Gran Abs Auto 0.01 X10*3/uL (0.00-0.03); Imm Gran Pct Auto 0.1 % (0.0-0.4); Lymphocytes Percent Auto 28.8 % (20-40); Mean Corpuscular HGB Conc 31.3 g/dl (31.0-35.0); Mean Corpuscular Hemoglobin 26.3 pg (27.0-33.0); Mean Platelet Volume 10.2 fL (9.4-12.3); Monocytes Absolute Auto 0.4 X10*3/uL (0.1-1.2); Monocytes Percent Auto 6.2 % (2-11); Neutrophils Absolute Auto 4.3 x10*3/uL (2.0-8.3); Neutrophils Percent Auto 62.6 % (45-73); Platelet Count 305 X10*3/uL (160-400); Red Cell Distribution Width 14.3 % (11.0-16.0); White Blood Count 6.9 X10*3/uL (4.8-10.8)
--- NOTE | 2023-10-27 12:37 | ED.ABDPAIN ---
HPI - Abdominal Pain General Chief Complaint: Abdominal Pain Stated Complaint: R flank pain Time Seen by Provider: 10/27/23 12:33 Source: patient, RN notes reviewed and old records reviewed Mode of arrival: ambulatory History of Present Illness HPI narrative: 42-year-old female with a past medical history of CHF, presenting to the ED complaining of right side/RLQ abdominal pain x4 days. Pain is constant with associated nausea and urinary hesitancy. Denies fever/chills, vomiting, diarrhea, dysuria/hematuria, vaginal bleeding/discharge MD elicited complaint: abdominal pain Related Data Home Medications Medication Instructions Recorded Confirmed acetaminophen 500 mg tablet 1,000 mg PO Q6H PRN fever 08/02/22 08/02/22 amitriptyline 10 mg tablet 10 mg PO BEDTIME 08/02/22 08/02/22 aspirin 81 mg tablet,delayed 81 mg PO QAM 08/02/22 08/02/22 release atorvastatin 80 mg tablet 80 mg PO BEDTIME 08/02/22 08/02/22 bupropion HCl 150 mg tablet,12 hr 150 mg PO 08/02/22 08/02/22 sustained-release clopidogrel 75 mg tablet 75 mg PO QAM 08/02/22 08/02/22 furosemide 40 mg tablet 40 mg PO QAM 08/02/22 08/02/22 midodrine 10 mg tablet 0 mg PO 08/02/22 08/02/22 trazodone 100 mg tablet 100 - 150 mg PO BEDTIME 08/02/22 08/02/22 Previous Rx's Medication Instructions Recorded ibuprofen 600 mg tablet 600 mg PO Q6H PRN pain #30 tabs 09/25/20 fluticasone propionate 50 1 spray intranasal Q12H #16 grams 03/19/21 mcg/actuation nasal spray,suspension (Flonase Allergy Relief) cyclobenzaprine 10 mg tablet 10 mg PO TID PRN muscle spasm #14 01/16/23 tabs lidocaine 5 % topical patch 1 patch topical DAILY #15 ea 01/16/23 cephalexin 250 mg capsule 500 mg (2 x 250 mg) PO Q6H 7 days 06/25/23 #56 caps doxycycline hyclate 100 mg capsule 100 mg PO BID #14 caps 06/25/23 omeprazole 40 mg capsule,delayed 40 mg PO DAILY #30 caps 10/27/23 release Allergies Allergy/AdvReac Type Severity Reaction Status Date / Time midodrine [MIDODRINE] Allergy Severe HIGHER Verified 10/27/23 10:48 DOSES 40MG NUMBNESS AND SOB lisinopril [LISINOPRIL] AdvReac Intermediate UPSET Verified 10/27/23 10:48 STOMACH Review of Systems Review of Systems Constitutional: No Fever, No Chills ENT/Mouth: No Ear Pain, No sore throat, No Rhinorrhea, No Swallowing Difficulty Cardiovascular: No Chest Pain, No SOB Respiratory: No Cough Gastrointestinal: +Nausea, No Vomiting, No Diarrhea, No Constipation, +Abdominal pain Genitourinary: No Dysuria, No Urinary Frequency, No Hematuria, No Urinary Incontinence/retention, No Urgency, No Flank Pain, +urinary hesitancy Musculoskeletal: No joint pain, No Myalgias Skin: No Skin Lesions, No rash Neuro: No Weakness Yes all other systems are reviewed and are negative Constitutional: Reports as per [facility] Past Medical History Attestation statement: The following information was validated with the patient. 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 Physical Exam ED Vital Signs: Vital Signs - 24 hr 10/27/23 10:45 10/27/23 12:15 10/27/23 14:00 Temperature 97.1 F 97.9 F Pulse Rate 76 68 60 Respiratory Rate 18 14 18 Blood Pressure 113/72 109/72 95/57 L Pulse Oximetry 98 98 99 Oxygen Delivery Method Room Air Room Air Room Air 10/27/23 15:37 10/27/23 17:37 Temperature 98.1 F Pulse Rate 64 71 Respiratory Rate 16 Blood Pressure 109/60 104/74 Pulse Oximetry 98 Oxygen Delivery Method Room Air BMI result Body Mass Index 36.5 Const General: cooperative, healthy appearing and no acute distress Orientation/consciousness: patient oriented x3 Limitations: no limitations HENMT Head: Yes normal to inspection and Yes atraumatic Ears: hearing grossly normal bilaterally General nose exam: Normal external nose present Face and sinus: Yes normal facial exam Eyes General: appearance normal, both eyes and all related structures EOM: EOMs intact bilaterally Neck Neck: Yes normal visual inspection and Yes no meningeal signs Resp Effort & Inspection: normal respiratory effort and no respiratory distress Auscultation: clear to auscultation bilaterally Cardio Rate: regular rate Heart sounds: S1 normal heart sound present and S2 normal heart sound present GI Inspection: Yes normal to inspection Palpation (GI): Soft to palpation, Tenderness to palpation present (GI) in the RLQ; with no rebound tenderness, no guarding and not rigid General: Yes no CVA tenderness Back/Spine/Pelvis Back: no CVA tenderness Skin Rashes: no rashes Wounds: no wounds Neuro General: patient oriented x3, tone normal and no meningeal signs Cranial nerves: Yes CN's II-XII intact bilaterally Gait exam (Neuro): Normal gait present Extrem General: Yes normal to inspection Course Course Course Narrative: -no leukocytosis. Labs otherwise reassuring. UA negative. CT abdomen pelvis w IV con IMPRESSION: Wall thickening of the distal stomach, duodenum and proximal jejunum. This may represent an acute infectious or inflammatory process. Correlation with direct visualization is advised. 1.2 x 1.9 x 1.4 cm hypodensity in the tail the pancreas. No dilatation of the main pancreatic duct. No peripancreatic stranding. Further characterization with MRI/MRCP is recommended. 5 mm left lower lobe pulmonary nodule. > case discussed with GI, Dr. Ledbetter who recommended 40 mg of omeprazole daily outpatient, PCP and GI follow-up. 1500--on re-evaluation patient reports symptomatic improvement however abdomen remains soft and tender to RLQ/right suprapubic region > obtain pelvic ultrasound for further eval -1630--ED care transferred to [facility] pending ultrasound and dispo per results Reevaluation(s) Reevaluation #1: Patient received in sign-out at change of shift pending ultrasound which was a small uterine fibroid. This was discussed with the patient. She is stable for discharge Time: 18:48 Medical Decision Making Medical Decision Making MDM Narrative: 42-year-old female with a past medical history of CHF, presenting to the ED complaining of right side/RLQ abdominal pain x4 days. On exam vital signs stable, NAD, nontoxic appearing, abdomen soft with RLQ tenderness, no rebound or guarding, no CVAT. Concern for appendicitis vs renal stone/hi Lo. Rule out UTI. Lower suspicion for ovarian torsion/TOA or ischemic bowel Plan: Labs, UA, CT AP, IVF, pain control Please refer to course for remaining clinical decision making, interpretation of labs/imaging results, and discussions with consultants and/or family members. Differential Diagnosis Differential Diagnoses: The differential diagnosis associated with the presentation includes As above Admission/Observation Consideration of admission/observation: Escalation of care including admission/observation considered Lab Data MDM Lab Attestation statement: I reviewed the patient's lab results. 10/27/23 12:22 10/27/23 12:22 Labs: Lab Results 10/27/23 10/27/23 Range/Units 12:18 12:22 WBC 6.9 (4.8-10.8) X10*3/uL RBC 4.80 (4.20-5.50) X10*6/uL Hgb 12.6 (12.0-16.0) g/dl Hct 40.3 (37.0-47.0) % MCV 84.0 (80.0-98.0) fL MCH 26.3 L (27.0-33.0) pg MCHC 31.3 (31.0-35.0) g/dl RDW 14.3 (11.0-16.0) % Plt Count 305 (160-400) X10*3/uL MPV 10.2 (9.4-12.3) fL Immature Gran % (Auto) 0.1 (0.0-0.4) % Neut % (Auto) 62.6 (45-73) % Lymph % (Auto) 28.8 (20-40) % [place] % (Auto) 6.2 (2-11) % Eos % (Auto) 2.0 (0-4) % Baso % (Auto) 0.3 (0-2) % Lymph # (Auto) 2.0 (1.2-4.9) X10*3/uL [place] # (Auto) 0.4 (0.1-1.2) X10*3/uL Eos # (Auto) 0.1 (0.0-0.4) X10*3/uL Baso # (Auto) 0.0 (0.0-0.2) X10*3/uL Abs Immat Gran (auto) 0.01 (0.00-0.03) X10*3/uL Absolute Neuts (auto) 4.3 (2.0-8.3) x10*3/uL Absolute Nucleated RBC 0.000 (0.0-0.012) X10*3/uL Nucleated RBC % (auto) 0.0 (0.0-0.2) /100WBC Sodium 138 (135-145) mmol/L Potassium 4.2 (3.3-5.1) mmol/L Chloride 105 (96-108) mmol/L Carbon Dioxide 26 (22-29) mmol/L Anion Gap 11 L (12-20) BUN 10 (9-16) mg/dL Creatinine 0.84 (0.5-1.4) mg/dL Estim Creat Clear Calc 106.5 Estimated GFR > 60 Random Glucose 87 (60-115) mg/dL Calcium 9.1 (8.4-10.2) mg/dL Magnesium 1.9 (1.6-2.6) mg/dL Total Bilirubin 0.3 (0.0-1.0) mg/dL Direct Bilirubin 0.1 (0.0-0.5) mg/dL AST 11 (5-31) U/L ALT 9 (0-31) U/L Alkaline Phosphatase 53 (39-117) U/L Total Protein 7.6 (6.5-8.0) g/dL Albumin 4.0 (3.5-5.0) g/dL Lipase 18 (8-78) U/L Beta HCG, Quant < 2 mIU/mL Urine Color Yellow Urine Appearance Clear Urine pH 6.5 (5.0-9.0) Ur Specific [facility] 1.015 (1.005-1.025) Urine Protein Negative (Neg-Trace) mg/dL Urine Glucose (UA) Negative (Negative) mg/dL Urine Ketones Negative (Negative) mg/dL Urine Blood Negative (Negative) Urine Nitrite Negative (Negative) Ur Leukocyte Esterase Negative (Negative) Urine Test NEGATIVE (NEGATIVE) Independent Interpretation I performed an independent interpretation of an: CT Scan Radiology Impression Discussion of test interpretation with radiology: I have reviewed the radiologist's reading. External Record Review External record reviewed: Inpatient record, Office record, Outpatient record, Prior outpatient labs, Prior outpatient radiology, Primary care record and Outside ED record Tests considered The following testing was considered but not selected: As above Prescription Management I considered prescription management with: Pain Medication Medications Administered Discontinued Medications Generic Name Dose Route Start Last Admin Trade Name Freq PRN Reason Stop Dose Admin Sodium Chloride 1,000 mls @ 999 mls/hr 10/27/23 12:45 10/27/23 14:33 Ns IV 10/27/23 13:45 Infused .Q1H1M SANYA Infusion Iohexol 85 ml 10/27/23 13:24 10/27/23 13:25 Iohexol 350 Mg/Ml 100 Ml Infus..Btl IV 10/27/23 13:25 85 ml ONCE ONE Administration Ketorolac Tromethamine 15 mg 10/27/23 12:38 10/27/23 13:30 Ketorolac Tromethamine 15 Mg/Ml Vial IVPUSH 10/27/23 12:39 15 mg ONCE ONE Administration Ketorolac Tromethamine 15 mg 10/27/23 15:18 10/27/23 15:35 Ketorolac Tromethamine 15 Mg/Ml Vial IVPUSH 10/27/23 15:19 15 mg ONCE ONE Administration Ondansetron HCl 4 mg 10/27/23 12:38 10/27/23 13:30 Ondansetron Hcl 4 Mg/2 Ml Vial IVPUSH 10/27/23 12:39 4 mg ONCE ONE Administration Discharge Plan Discharge Clinical Impression: Abdominal pain, Pancreatic lesion Patient Disposition: Home, Self-Care Instructions: Abdominal Pain (ED) Additional Instructions: Your CT scan shows a thickened wall of her distal stomach as well as a lesion on her pancreas. This needs to be further evaluated by GI specialist like with endoscopy and or MRI Please start taking omeprazole 40 mg daily as prescribed Have close follow-up with her doctor Symptoms persist or worsen, pain is unbearable, youre unable to eat or drink return to the ED Prescriptions: New omeprazole 40 mg capsule,delayed release(DR/EC) 40 mg PO DAILY Qty: 30 0RF No Action ibuprofen 600 mg tablet 600 mg PO Q6H PRN (Reason: pain) Qty: 30 0RF fluticasone propionate [Flonase Allergy Relief] 50 mcg/actuation spray,suspension 1 spray intranasal Q12H Qty: 16 0RF Rx Instructions: administer into each nostril cyclobenzaprine 10 mg tablet 10 mg PO TID PRN (Reason: muscle spasm) Qty: 14 0RF lidocaine 5 % adhesive patch,medicated 1 patch topical DAILY Qty: 15 0RF Rx Instructions: leave on most painful area for up to 12 hrs doxycycline hyclate 100 mg capsule 100 mg PO BID Qty: 14 0RF cephalexin 250 mg capsule 500 mg PO Q6H 7 Days Qty: 56 0RF trazodone 100 mg tablet 100 - 150 mg PO BEDTIME bupropion HCl 150 mg tablet sustained-release 12 hr 150 mg PO midodrine 10 mg tablet 0 mg PO amitriptyline 10 mg tablet 10 mg PO BEDTIME aspirin 81 mg tablet,delayed release (DR/EC) 81 mg PO QAM atorvastatin 80 mg tablet 80 mg PO BEDTIME clopidogrel 75 mg tablet 75 mg PO QAM furosemide 40 mg tablet 40 mg PO QAM acetaminophen 500 mg tablet 1,000 mg PO Q6H PRN (Reason: fever) Referrals: Negra Foster MD [Primary Care Provider] - Medardo Ledbetter MD [Physician] - 1 week
[2023-10-27 12:49] LABS: Anion Gap 11 (12-20)
[2023-10-27 12:51] LABS: Alanine Aminotransferase 9 U/L (0-31); Alkaline Phosphatase 53 U/L (39-117); Aspartate Amino Transferase 11 U/L (5-31); Bilirubin Direct 0.1 mg/dL (0.0-0.5); Bilirubin Total 0.3 mg/dL (0.0-1.0); Blood Urea Nitrogen 10 mg/dL (9-16); Calcium 9.1 mg/dL (8.4-10.2); Carbon Dioxide 26 mmol/L (22-29); Chloride 105 mmol/L (96-108); Creatinine Clr Calc Pharmacy 106.5; Estimated Glomerular Filt Rate > 60; Glucose Random 87 mg/dL (60-115); Lipase 18 U/L (8-78); Magnesium 1.9 mg/dL (1.6-2.6); Potassium 4.2 mmol/L (3.3-5.1); Sodium 138 mmol/L (135-145); Total Protein 7.6 g/dL (6.5-8.0)
[2023-10-27 13:15] LABS: HCG Quantitative < 2 mIU/mL
[2023-10-27] MEDS: iohexoL 350 MG/ML 100 ML INFUS..BTL 85 ML IV (13:25)
[2023-10-27] MEDS: Ketorolac Tromethamine 15 MG/ML VIAL IVPUSH ×2 (13:30→15:35)
[2023-10-27] MEDS: ondansetron HCL 4 MG/2 ML VIAL IVPUSH (13:30)
[2023-10-27] MEDS: 0.9 % Sodium Chloride 1,000 ML 999 ML IV (13:30)
[2023-10-27 14:00] VITALS: BP 95/57; PULSE 60; RESP 18; O2SAT 99
--- NOTE | 2023-10-27 14:42 | PC.NURSE ---
PT RESTING QUIETLY IN BED. REPORTS 2/10 ABD CRAMPING AFTER GETTING PAIN MEDS. VSS. NO COMPLAINTS AT THIS TIME.
[2023-10-27 15:37] VITALS: BP 109/60; PULSE 64
--- NOTE | 2023-10-27 15:39 | PC.NURSE ---
pain med given as documented, pt now in ultra sound. b/p reassessed and documented.
[2023-10-27 17:37] VITALS: BP 104/74; PULSE 71; RESP 16; TEMP 36.7; O2SAT 98
[2023-10-27 18:55] VITALS: BP 113/72; PULSE 73; RESP 18; TEMP 36.5; O2SAT 98
== END 2023-10-27 19:36 | disposition home or self-care (01) ==
PROVIDERS: Physician Assistant; Emergency Provider Emergency Medicine; PCP Internal Medicine
DX: R10.31 Right lower quadrant pain (principal); K86.9 Disease of pancreas, unspecified; I50.9 Heart failure, unspecified; Z79.82 Long term (current) use of aspirin; Z79.899 Other long term (current) drug therapy
CPT/HCPCS: 36415; 74177; 76830; 76856; 80048; 80076; 81003; 81025; 83690; 83735; 84702; 85025; 96361; 96374; 96375; 96376; 99284; J1885; J2405; Q9967

== ENCOUNTER 2023-10-31 18:54 | Emergency (ER) | payer MEDICAID, SELFPAY ==
[2023-10-31 19:47] VITALS: BP 108/72; PULSE 86; RESP 18; TEMP 36.3; O2SAT 99; BMI 36.8
--- NOTE | 2023-10-31 19:48 | ED.GENADULT ---
HPI - General Adult General Chief complaint: Abdominal Pain Stated complaint: R flank pain Time Seen by Provider: 10/31/23 22:42 Related Data Home Medications Medication Instructions Recorded Confirmed acetaminophen 500 mg tablet 1,000 mg PO Q6H PRN fever 08/02/22 08/02/22 amitriptyline 10 mg tablet 10 mg PO BEDTIME 08/02/22 08/02/22 aspirin 81 mg tablet,delayed 81 mg PO QAM 08/02/22 08/02/22 release atorvastatin 80 mg tablet 80 mg PO BEDTIME 08/02/22 08/02/22 bupropion HCl 150 mg tablet,12 hr 150 mg PO 08/02/22 08/02/22 sustained-release clopidogrel 75 mg tablet 75 mg PO QAM 08/02/22 08/02/22 furosemide 40 mg tablet 40 mg PO QAM 08/02/22 08/02/22 midodrine 10 mg tablet 0 mg PO 08/02/22 08/02/22 trazodone 100 mg tablet 100 - 150 mg PO BEDTIME 08/02/22 08/02/22 Previous Rx's Medication Instructions Recorded ibuprofen 600 mg tablet 600 mg PO Q6H PRN pain #30 tabs 09/25/20 fluticasone propionate 50 1 spray intranasal Q12H #16 grams 03/19/21 mcg/actuation nasal spray,suspension (Flonase Allergy Relief) cyclobenzaprine 10 mg tablet 10 mg PO TID PRN muscle spasm #14 01/16/23 tabs lidocaine 5 % topical patch 1 patch topical DAILY #15 ea 01/16/23 cephalexin 250 mg capsule 500 mg (2 x 250 mg) PO Q6H 7 days 06/25/23 #56 caps doxycycline hyclate 100 mg capsule 100 mg PO BID #14 caps 06/25/23 omeprazole 40 mg capsule,delayed 40 mg PO DAILY #30 caps 10/27/23 release Allergies Allergy/AdvReac Type Severity Reaction Status Date / Time lisinopril [LISINOPRIL] AdvReac Intermediate UPSET Verified 10/31/23 19:52 STOMACH PMFSH Past Medical History 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 Physical Exam ED Vital Signs: BMI result Body Mass Index 36.8 Course Course Course Narrative: RME performed by Sharri Torrse PA-C. Patient is a 42 year old assigned female at presenting to the emergency department with abdominal pain and flank pain. Patient was seen here on 10/27/2023 and diagnosed with a uterine fibroid and hypodensity in the pancreas. Patient states that the pain is not improving. Patient states that she has an appointment this upcoming Friday with the GI doctor. Labs ordered. Patient placed back in the waiting room pending room availability and results. Please see Dr. Marshall's note for the course of this patient's care. Medical Decision Making Lab Data 10/31/23 19:58 10/31/23 19:58 Labs: Lab Results 10/31/23 10/31/23 Range/Units 19:58 20:04 WBC 7.0 (4.8-10.8) X10*3/uL RBC 4.49 (4.20-5.50) X10*6/uL Hgb 11.8 L (12.0-16.0) g/dl Hct 36.9 L (37.0-47.0) % MCV 82.2 (80.0-98.0) fL MCH 26.3 L (27.0-33.0) pg MCHC 32.0 (31.0-35.0) g/dl RDW 14.6 (11.0-16.0) % Plt Count 274 (160-400) X10*3/uL MPV 9.9 (9.4-12.3) fL Immature Gran % (Auto) 0.3 (0.0-0.4) % Neut % (Auto) 59.6 (45-73) % Lymph % (Auto) 31.1 (20-40) % [place] % (Auto) 6.7 (2-11) % Eos % (Auto) 2.0 (0-4) % Baso % (Auto) 0.3 (0-2) % Lymph # (Auto) 2.2 (1.2-4.9) X10*3/uL [place] # (Auto) 0.5 (0.1-1.2) X10*3/uL Eos # (Auto) 0.1 (0.0-0.4) X10*3/uL Baso # (Auto) 0.0 (0.0-0.2) X10*3/uL Abs Immat Gran (auto) 0.02 (0.00-0.03) X10*3/uL Absolute Neuts (auto) 4.2 (2.0-8.3) x10*3/uL Absolute Nucleated RBC 0.000 (0.0-0.012) X10*3/uL Nucleated RBC % (auto) 0.0 (0.0-0.2) /100WBC Sodium 141 (135-145) mmol/L Potassium 3.7 (3.3-5.1) mmol/L Chloride 105 (96-108) mmol/L Carbon Dioxide 26 (22-29) mmol/L Anion Gap 14 (12-20) BUN 8 L (9-16) mg/dL Creatinine 0.91 (0.5-1.4) mg/dL Estim Creat Clear Calc 98.7 Estimated GFR > 60 Random Glucose 126 H (60-115) mg/dL Calcium 9.1 (8.4-10.2) mg/dL Magnesium 1.9 (1.6-2.6) mg/dL Total Bilirubin 0.3 (0.0-1.0) mg/dL AST 12 (5-31) U/L ALT 8 (0-31) U/L Alkaline Phosphatase 52 (39-117) U/L Total Protein 7.4 (6.5-8.0) g/dL Albumin 3.9 (3.5-5.0) g/dL Lipase 17 (8-78) U/L Urine Color Yellow Urine Appearance Clear Urine pH 6.0 (5.0-9.0) Ur Specific [place] 1.015 (1.005-1.025) Urine Protein Negative (Neg-Trace) mg/dL Urine Glucose (UA) Negative (Negative) mg/dL Urine Ketones Negative (Negative) mg/dL Urine Blood Trace H (Negative) Urine Nitrite Negative (Negative) Ur Leukocyte Esterase Negative (Negative) Urine RBC 3-5 H (0-2) /HPF Urine WBC 0-5 (0-5) /HPF Ur Squamous Epith Cells 0-2 (0-2) /HPF Urine Bacteria None Seen (None Seen) Hyaline Casts 0-2 (0-2) /LPF Influenza Type A (PCR) NEGATIVE (Negative) Influenza Type B (PCR) NEGATIVE (Negative) RSV RNA Qual (PCR) NEGATIVE (Negative) SARS-CoV-2 RNA (RT-PCR) NEGATIVE (Negative) Discharge Plan Discharge Clinical Impression: Abdominal pain Patient Disposition: Elopement Prescriptions: No Action ibuprofen 600 mg tablet 600 mg PO Q6H PRN (Reason: pain) Qty: 30 0RF fluticasone propionate [Flonase Allergy Relief] 50 mcg/actuation spray,suspension 1 spray intranasal Q12H Qty: 16 0RF Rx Instructions: administer into each nostril cyclobenzaprine 10 mg tablet 10 mg PO TID PRN (Reason: muscle spasm) Qty: 14 0RF lidocaine 5 % adhesive patch,medicated 1 patch topical DAILY Qty: 15 0RF Rx Instructions: leave on most painful area for up to 12 hrs doxycycline hyclate 100 mg capsule 100 mg PO BID Qty: 14 0RF cephalexin 250 mg capsule 500 mg PO Q6H 7 Days Qty: 56 0RF omeprazole 40 mg capsule,delayed release(DR/EC) 40 mg PO DAILY Qty: 30 0RF trazodone 100 mg tablet 100 - 150 mg PO BEDTIME bupropion HCl 150 mg tablet sustained-release 12 hr 150 mg PO midodrine 10 mg tablet 0 mg PO amitriptyline 10 mg tablet 10 mg PO BEDTIME aspirin 81 mg tablet,delayed release (DR/EC) 81 mg PO QAM atorvastatin 80 mg tablet 80 mg PO BEDTIME clopidogrel 75 mg tablet 75 mg PO QAM furosemide 40 mg tablet 40 mg PO QAM acetaminophen 500 mg tablet 1,000 mg PO Q6H PRN (Reason: fever) Discharge Date/Time: 11/01/23 00:30
[2023-10-31 20:04] LABS: MANUAL DIFF FLAG NO
[2023-10-31 20:05] LABS: Basophils Percent Auto 0.3 % (0-2); Eosinophils Absolute Auto 0.1 X10*3/uL (0.0-0.4); Hematocrit 36.9 % (37.0-47.0); Hemoglobin 11.8 g/dl (12.0-16.0); Imm Gran Abs Auto 0.02 X10*3/uL (0.00-0.03); Imm Gran Pct Auto 0.3 % (0.0-0.4); Lymphocytes Absolute Auto 2.2 X10*3/uL (1.2-4.9); Lymphocytes Percent Auto 31.1 % (20-40); Mean Corpuscular Hemoglobin 26.3 pg (27.0-33.0); Mean Corpuscular Volume 82.2 fL (80.0-98.0); Mean Platelet Volume 9.9 fL (9.4-12.3); Monocytes Absolute Auto 0.5 X10*3/uL (0.1-1.2); Monocytes Percent Auto 6.7 % (2-11); Neutrophils Absolute Auto 4.2 x10*3/uL (2.0-8.3); Neutrophils Percent Auto 59.6 % (45-73); Platelet Count 274 X10*3/uL (160-400); Red Blood Count 4.49 X10*6/uL (4.20-5.50); Red Cell Distribution Width 14.6 % (11.0-16.0)
[2023-10-31 20:14] LABS: Appearance Urine Clear; Color Urine Yellow; Glucose Urine UA Negative (Negative); Leukocyte Esterase Urine Negative (Negative); Nitrite Urine Negative (Negative); Specific Gravity - Urine 1.015 (1.005-1.025); UMIC TRIGGER UACC YES; Urine Blood Trace (Negative); Urine Ketones Negative (Negative); Urine Protein Negative (Neg-Trace)
[2023-10-31 20:19] LABS: Bacteria Urine None Seen (None Seen); Hyaline Casts Urine 0-2 /LPF (0-2); Squamous Epithelial Cell Urine 0-2 /HPF (0-2); WBC Urine 0-5 /HPF (0-5)
[2023-10-31 20:24] LABS: Alanine Aminotransferase 8 U/L (0-31); Albumin Level 3.9 g/dL (3.5-5.0); Alkaline Phosphatase 52 U/L (39-117); Anion Gap 14 (12-20); Aspartate Amino Transferase 12 U/L (5-31); Bilirubin Total 0.3 mg/dL (0.0-1.0); Blood Urea Nitrogen 8 mg/dL (9-16); Calcium 9.1 mg/dL (8.4-10.2); Carbon Dioxide 26 mmol/L (22-29); Chloride 105 mmol/L (96-108); Creatinine Clr Calc Pharmacy 98.7; Estimated Glomerular Filt Rate > 60; Glucose Random 126 mg/dL (60-115); Lipase 17 U/L (8-78); Magnesium 1.9 mg/dL (1.6-2.6); Potassium 3.7 mmol/L (3.3-5.1); Sodium 141 mmol/L (135-145); Total Protein 7.4 g/dL (6.5-8.0)
[2023-10-31 20:44] LABS: Influenza A PCR NEGATIVE (Negative); Influenza B PCR NEGATIVE (Negative); Resp Syncy Virus RNA Qual PCR NEGATIVE (Negative); SARS COV2 PCR INHOUSE NEGATIVE (Negative)
[2023-10-31 23:18] VITALS: BP 97/61; PULSE 71; RESP 16; TEMP 36.8; O2SAT 100
--- NOTE | 2023-11-01 | PC.NURSE ---
pt leaving the ER prior to discharge; expresses her frustration that she is in pain and that nobody is doing anything to help her; encouraged the patient to stay to speak to the MD in regards to appropriate dc plan. pt adamently declines to stay. pt ambulates w/ a steady gait towards exit. this RN notified MD. he states it is ok for her to leave without discharge paperwork.
--- NOTE | 2023-11-01 00:03 | ED_ITS ---
HPI - Abdominal Pain General Chief Complaint: Abdominal Pain Stated Complaint: R flank pain Time Seen by Provider: 10/31/23 22:42 History of Present Illness HPI narrative: Patient is a 42-year-old female presents today with right flank pain has been ongoing for weeks. She has a history of coronary artery disease status post stents. Patient has as GI appointment schedule for Friday. Presented today with having the same pain as a few days ago when she was evaluated. Patient had an ultrasound transvaginal done and showed a small fibroid. Patient also had a CT scan of the abdomen pelvis which did not show any acute evidence of kidney stone. Patient complaining of pain persistent. No fever no chills no chest pain or shortness breath no diaphoresis. No change in bowel movement. Tolerating p.o.. Patient is from home. There has been no change in her medication. Related Data Home Medications Medication Instructions Recorded Confirmed acetaminophen 500 mg tablet 1,000 mg PO Q6H PRN fever 08/02/22 08/02/22 amitriptyline 10 mg tablet 10 mg PO BEDTIME 08/02/22 08/02/22 aspirin 81 mg tablet,delayed 81 mg PO QAM 08/02/22 08/02/22 release atorvastatin 80 mg tablet 80 mg PO BEDTIME 08/02/22 08/02/22 bupropion HCl 150 mg tablet,12 hr 150 mg PO 08/02/22 08/02/22 sustained-release clopidogrel 75 mg tablet 75 mg PO QAM 08/02/22 08/02/22 furosemide 40 mg tablet 40 mg PO QAM 08/02/22 08/02/22 midodrine 10 mg tablet 0 mg PO 08/02/22 08/02/22 trazodone 100 mg tablet 100 - 150 mg PO BEDTIME 08/02/22 08/02/22 Previous Rx's Medication Instructions Recorded ibuprofen 600 mg tablet 600 mg PO Q6H PRN pain #30 tabs 09/25/20 fluticasone propionate 50 1 spray intranasal Q12H #16 grams 03/19/21 mcg/actuation nasal spray,suspension (Flonase Allergy Relief) cyclobenzaprine 10 mg tablet 10 mg PO TID PRN muscle spasm #14 01/16/23 tabs lidocaine 5 % topical patch 1 patch topical DAILY #15 ea 01/16/23 cephalexin 250 mg capsule 500 mg (2 x 250 mg) PO Q6H 7 days 06/25/23 #56 caps doxycycline hyclate 100 mg capsule 100 mg PO BID #14 caps 06/25/23 omeprazole 40 mg capsule,delayed 40 mg PO DAILY #30 caps 10/27/23 release Allergies Allergy/AdvReac Type Severity Reaction Status Date / Time lisinopril [LISINOPRIL] AdvReac Intermediate UPSET Verified 10/31/23 19:52 STOMACH Review of Systems Review of Systems No fever no chills no chest pain Positive flank pain Yes all other systems are reviewed and are negative [facility] Past Medical History Medical History CHF (congestive heart failure) Cyst of perianal area Surgical History History of heart artery stent Tubal ligation status Social History Social History Alcohol intake: never Advance Directives: No Advance Directives Information Provided: No Current occupational status: employed 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 Physical Exam ED Vital Signs: Vital Signs - 24 hr 10/31/23 19:47 10/31/23 23:18 Temperature 97.4 F 98.2 F Pulse Rate 86 71 Respiratory Rate 18 16 Blood Pressure 108/72 97/61 Pulse Oximetry 99 100 Oxygen Delivery Method Room Air Room Air BMI result Body Mass Index 36.8 Appearance: Alert. Oriented X3. No acute distress. Eyes: Pupils equal, round and reactive to light. ENT: Pharynx normal. Neck: Normal inspection. Neck supple. No lymph nodes noted. No crepitus CVS: Normal heart rate and rhythm. Pulses normal. Normal S1 and S2 Respiratory: No respiratory distress. Breath sounds normal. No Wheezing. No rales Abdomen: Soft and nontender. No rigidity. No distention. good BS x4 Skin: Skin warm and dry. Normal skin color. Normal skin turgor. Extremities: No lower extremity edema. Neurovascular intact to all extremities. No Lacerations. No Rash Neuro: Oriented X 3. No motor deficit. No sensory deficit. Moving all extermities. No slurred speech Medical Decision Making Medical Decision Making MDM Narrative: Patient well appearing no acute distress. White count is normal. Hemoglobin is 11.8. This is about the same as earlier which was 12.6. Patient's electrolytes are unremarkable. LFTs are normal. Urine showed trace blood no signs of infection. Patient's flu COVID RSV were all negative. In light of patient getting a CT scan done on Friday felt patient does not need a CT scan or a ultrasound at this time. Explained to patient the need for follow-up with GI. Unlikely to have cardiac issues patient not having chest pain shortness of breath diaphoresis. Patient did not want a wait for her results or get an EKG done. She stormed out of the ED after told her about the CT results. I did tell her that there was nonspecific finding on the CT including nonspecific finding in the pancreas. Explained to patient the need for follow-up. Patient states understanding. Patient did not wait for paperwork did not wait for getting an EKG just walked out of the emergency department. Differential Diagnosis Differential Diagnoses: The differential diagnosis associated with the presentation includes ACS, kidney stone, pancreatitis, hepatic issue, obstruction, abscess, perforation Admission/Observation Consideration of admission/observation: Escalation of care including admission/observation considered Not needed as patient is well-appearing Lab Data MDM Lab Attestation statement: I reviewed the patient's lab results. 10/31/23 19:58 10/31/23 19:58 Labs: Lab Results 10/31/23 10/31/23 Range/Units 19:58 20:04 WBC 7.0 (4.8-10.8) X10*3/uL RBC 4.49 (4.20-5.50) X10*6/uL Hgb 11.8 L (12.0-16.0) g/dl Hct 36.9 L (37.0-47.0) % MCV 82.2 (80.0-98.0) fL MCH 26.3 L (27.0-33.0) pg MCHC 32.0 (31.0-35.0) g/dl RDW 14.6 (11.0-16.0) % Plt Count 274 (160-400) X10*3/uL MPV 9.9 (9.4-12.3) fL Immature Gran % (Auto) 0.3 (0.0-0.4) % Neut % (Auto) 59.6 (45-73) % Lymph % (Auto) 31.1 (20-40) % [place] % (Auto) 6.7 (2-11) % Eos % (Auto) 2.0 (0-4) % Baso % (Auto) 0.3 (0-2) % Lymph # (Auto) 2.2 (1.2-4.9) X10*3/uL [place] # (Auto) 0.5 (0.1-1.2) X10*3/uL Eos # (Auto) 0.1 (0.0-0.4) X10*3/uL Baso # (Auto) 0.0 (0.0-0.2) X10*3/uL Abs Immat Gran (auto) 0.02 (0.00-0.03) X10*3/uL Absolute Neuts (auto) 4.2 (2.0-8.3) x10*3/uL Absolute Nucleated RBC 0.000 (0.0-0.012) X10*3/uL Nucleated RBC % (auto) 0.0 (0.0-0.2) /100WBC Sodium 141 (135-145) mmol/L Potassium 3.7 (3.3-5.1) mmol/L Chloride 105 (96-108) mmol/L Carbon Dioxide 26 (22-29) mmol/L Anion Gap 14 (12-20) BUN 8 L (9-16) mg/dL Creatinine 0.91 (0.5-1.4) mg/dL Estim Creat Clear Calc 98.7 Estimated GFR > 60 Random Glucose 126 H (60-115) mg/dL Calcium 9.1 (8.4-10.2) mg/dL Magnesium 1.9 (1.6-2.6) mg/dL Total Bilirubin 0.3 (0.0-1.0) mg/dL AST 12 (5-31) U/L ALT 8 (0-31) U/L Alkaline Phosphatase 52 (39-117) U/L Total Protein 7.4 (6.5-8.0) g/dL Albumin 3.9 (3.5-5.0) g/dL Lipase 17 (8-78) U/L Urine Color Yellow Urine Appearance Clear Urine pH 6.0 (5.0-9.0) Ur Specific [place] 1.015 (1.005-1.025) Urine Protein Negative (Neg-Trace) mg/dL Urine Glucose (UA) Negative (Negative) mg/dL Urine Ketones Negative (Negative) mg/dL Urine Blood Trace H (Negative) Urine Nitrite Negative (Negative) Ur Leukocyte Esterase Negative (Negative) Urine RBC 3-5 H (0-2) /HPF Urine WBC 0-5 (0-5) /HPF Ur Squamous Epith Cells 0-2 (0-2) /HPF Urine Bacteria None Seen (None Seen) Hyaline Casts 0-2 (0-2) /LPF Influenza Type A (PCR) NEGATIVE (Negative) Influenza Type B (PCR) NEGATIVE (Negative) RSV RNA Qual (PCR) NEGATIVE (Negative) SARS-CoV-2 RNA (RT-PCR) NEGATIVE (Negative) External Record Review I reviewed patient's CT scan report, ultrasound report Prescription Management No additional pain medication was given Chronic Conditions Coronary artery disease Discharge Plan Discharge Clinical Impression: Abdominal pain Patient Disposition: Elopement Prescriptions: No Action ibuprofen 600 mg tablet 600 mg PO Q6H PRN (Reason: pain) Qty: 30 0RF fluticasone propionate [Flonase Allergy Relief] 50 mcg/actuation spray,suspension 1 spray intranasal Q12H Qty: 16 0RF Rx Instructions: administer into each nostril cyclobenzaprine 10 mg tablet 10 mg PO TID PRN (Reason: muscle spasm) Qty: 14 0RF lidocaine 5 % adhesive patch,medicated 1 patch topical DAILY Qty: 15 0RF Rx Instructions: leave on most painful area for up to 12 hrs doxycycline hyclate 100 mg capsule 100 mg PO BID Qty: 14 0RF cephalexin 250 mg capsule 500 mg PO Q6H 7 Days Qty: 56 0RF omeprazole 40 mg capsule,delayed release(DR/EC) 40 mg PO DAILY Qty: 30 0RF trazodone 100 mg tablet 100 - 150 mg PO BEDTIME bupropion HCl 150 mg tablet sustained-release 12 hr 150 mg PO midodrine 10 mg tablet 0 mg PO amitriptyline 10 mg tablet 10 mg PO BEDTIME aspirin 81 mg tablet,delayed release (DR/EC) 81 mg PO QAM atorvastatin 80 mg tablet 80 mg PO BEDTIME clopidogrel 75 mg tablet 75 mg PO QAM furosemide 40 mg tablet 40 mg PO QAM acetaminophen 500 mg tablet 1,000 mg PO Q6H PRN (Reason: fever)
== END 2023-11-01 00:30 | disposition left against medical advice (07) ==
PROVIDERS: Physician Assistant Medical; Emergency Provider Emergency Medicine Emergency Medical Services; PCP Internal Medicine
DX: R10.9 Unspecified abdominal pain (principal); Z20.822 Contact with and (suspected) exposure to COVID-19; Z20.828 Contact with and (suspected) exposure to other viral communicable diseases; Z79.899 Other long term (current) drug therapy
CPT/HCPCS: 0241U; 80053; 81001; 83690; 83735; 85025; 99283; 99284

== ENCOUNTER 2023-11-28 09:45 | Emergency (ER) | payer MEDICAID, SELFPAY ==
--- NOTE | ~2023-11-28 | CT_ITS ---
EXAMINATION: CT ABDOMEN AND PELVIS WITH CONTRAST CLINICAL INFORMATION: Abdominal pain, right lower quadrant tenderness. Status post cholecystectomy. COMPARISON: None available. TECHNIQUE: Multidetector volumetric images were obtained from the superior aspect of the liver through the pubic symphysis following administration 85 mL of Omnipaque 350 intravenous contrast. Sagittal and coronal reformatted images were obtained on the technologist's workstation. Oral contrast: No This CT examination was performed using dose optimization techniques as appropriate, variously including the following: *Automated exposure control *Adjustment of mA and/or kV according to patient size (this includes techniques or standardized protocols for targeted exams where dose is matched to indication/reason for exam; i.e. extremities or head) *Use of iterative reconstruction technique DLP: 1262 mGy-cm FINDINGS: LUNG BASES: There is bibasilar haziness. The heart size is normal. There is moderate coronary artery calcifications. No pericardial effusion seen. LIVER, GALLBLADDER, AND BILIARY TREE: The liver is normal in size, shape, and attenuation. No focal hepatic lesion or biliary ductal dilatation is present. The gallbladder has been surgically removed. PANCREAS: There is a 1.2 x 1.2 cm hypodense lesion in the tail of pancreas measuring -12 Hounsfield units, stable compared to previous study. Rest of the pancreas is unremarkable. The pancreatic duct appears normal. Appendix is normal caliber. SPLEEN: Unremarkable. ADRENAL GLANDS: Unremarkable. KIDNEYS AND URETERS: The kidneys are normal in size, shape, and attenuation. No hydronephrosis, hydroureter, or calculi seen. No perinephric stranding. BLADDER: Unremarkable. GASTROINTESTINAL TRACT: The small and large bowel are unremarkable. The appendix is unremarkable. ABDOMINAL WALL: No significant hernia is appreciated. LYMPH NODES: Normal. VASCULAR: Unremarkable. PELVIC VISCERA: Uterus is midline. There is minimal free fluid in the cul-de-sac. Small cysts are visualized in the right ovary. No adnexal mass or free fluid. OSSEOUS STRUCTURES: No aggressive lytic or sclerotic process seen. CT/CT abdomen pelvis w IV con IMPRESSION: 1. No acute intra-abdominal process seen. 2. Cholecystectomy changes are stable. 3. Stable hypodense lesion in the tail of the pancreas. 4. Minimal free fluid in the cul-de-sac likely physiologic. Fleischner guidelines were followed.
[2023-11-28 09:50] VITALS: BP 106/73; PULSE 102; RESP 19; TEMP 36.6; O2SAT 97; BMI 36.6
--- NOTE | 2023-11-28 09:59 | ECG_ITS ---
Test Reason : chest pain Blood Pressure : / mmHG Vent. Rate : 098 BPM Atrial Rate : 098 BPM P-R Int : 122 ms QRS Dur : 084 ms QT Int : 330 ms P-R-T Axes : 026 -39 023 degrees QTc Int : 421 ms Normal sinus rhythm Left axis deviation Low voltage QRS Possible Anterolateral infarct , age undetermined Abnormal ECG Referred By: Sharri Torres Electronically Signed By:THOM CHERRY MD
--- OUTSIDE RECORDS SUMMARY | 2023-11-28 10:04 | XMS_ITS | Patient Health Record ---
Author Name Unknown Organization [facility] Address [address] [place] [address] Care Team Providers Care Communications Supervisor Name Role Phone Cristian CHAPARRO, Negra Primary Care Provider Unavail able José Miguel Soto Jr Unavailable [phone] Medardo Ledbetter Unavailable [phone] ALLERGIES Allergen (clinical drug ingredient) Drug/Non Drug Allergy documented on EMR Reaction Allergy Type Onset Date Status lisinopril Lisinopril Unknown Drug Allergy Activ e REASON FOR REFERRAL Referring Provider First Name Negra Referring Provider Last Name Cristian Referring Provider Speciality Family Pra ctice Referred Organization [facility] Referred Provider José Miguel Soto Jr Referred Address [address], [place],[address], Referred Provider Specialty Gastroentero logy General Notes Felisa Alvarenga 023 02:22:45 PM EST > requested a [facility] referral from [facility] for visit with Dr. Soto on [phone] Referral Priority Routine MEDICATIONS Medication SIG (Take, Route, Frequency, Duration) Notes Start Date End Date Status buPROPion HCl ER (SR) 150 MG TAKE 1 TABLET BY MOUTH TWICE DAILY IN THE MORNING AND IN THE EVENING Oral for 30 [id number],Unavailab le Active traZODone HCl 100 MG TAKE 1 TO 1 & 1/2 TABLETS BY MOUTH AT BEDTIME Oral for 30 [id number],Unavailab le Active Omeprazole 40 MG TAKE 1 CAPSULE BY MOUTH EVERY DAY Oral for 30 Active Atorvastatin Calcium 80 MG TAKE 1 TABLET BY MOUTH AT BEDTIME Oral for 90 Active Furosemide 40 MG TAKE 1 TABLET BY MOUTH EVERY MORNING Oral for 90 I10,Unavailable Active Aspirin Adult Low Strength 81 MG TAKE 1 TABLET BY MOUTH EVERY MORNING Oral for 90 [id number],Unavailab le Active Clopidogrel Bisulfate 75 MG TAKE 1 TABLET BY MOUTH EVERY MORNING Oral for 90 Active Midodrine HCl 10 MG TAKE 1 TABLET BY MOUTH TWICE DAILY. TAKE 1 DOSE IN THE MORNING & SECOND DOSE 5 HOURS LATER Oral for 30 Active IMMUNIZATIONS Vaccine Route Administration Date Status Comme nts Influenza Unknown 11/03/2023 Refused SOCIAL HISTORY Tobacco Use: Social History Observation Description Date Details (start date - stop date) Never Smoker NA - NA Sex Assigned At : Social History Observation Description Sex Assigned At Unknown Tobacco Use/Smoking Question Answer Notes Patient is a nonsmoker Alcohol Screen Question Answer Notes Did you have a drink containing alcohol in the p ast year? No Points 0 Interpretation Negative PROBLEMS Problem Type ICD Code Onset Dates Problem Status W/U Status Risk SNOMED Code Notes Problem Abnormal CT scan, gastrointestinal tract (R93.3) Active confirmed [id number] Encounters Encounter Location Date Provider Diagnosis [facility] [place] [address] [place] [phone] 11/28/2023 José Miguel Soto Jr [facility] [address] [place] [phone] 11/03/2023 José Miguel Soto Jr Abnormal CT scan, gastrointestinal tract R93.3 [facility] [address] [place] [phone] 10/29/2023 Medardo Ledbetter [facility] [address] [place] [phone] 11/24/2023 José Miguel Soto Jr ASSESSMENTS Encounter Date Diagnosis Assessment Notes Treatment Notes Treatment Clinical Notes 11/03/[address] scan, gastrointestinal tract (ICD-10 - R93.3) Digestive diseases material was printed PLAN OF TREATMENT Pending Test Test Name Order Date MRI ABD W&WO CONTRAST 11/03/2023 Future Test Test Name Order Date UPPER GI ENDOSCOPY 11/03/2023 Next Appt Details Provider Name:José Miguel weber Jr, 11/28/2023 11:20:00 AM, [address] [place] [address] , [place], [place], [phone], Insurance Providers Payer Name Payer Address Payer Phone Subscriber Number Group Number Insured Name Patient Relationship to Insured Coverage Start Date Coverage End Date MEDICAID OF [employer] [address] [place] [id number] SAGASTUMEHUONG Self - patient is the insured MEDICAL (GENERAL) HISTORY Medical History History ICD Code Coronary artery disease with history of [place]. Status post PCI with stent placement x3. Ischemic cardiomyopathy, EF 40-45% by ec ho 2019 Constipation Hyperlipidemia Elevated body mass index Surgical History Surgery Date(Month/Year) Cholecystectomy 2021 Coronary artery stent placement x3
[2023-11-28 10:11] LABS: MANUAL DIFF FLAG NO
[2023-11-28 10:12] LABS: Eosinophils Percent Auto 0.4 % (0-4); Hematocrit 38.2 % (37.0-47.0); Hemoglobin 11.9 g/dl (12.0-16.0); Imm Gran Abs Auto 0.02 X10*3/uL (0.00-0.03); Imm Gran Pct Auto 0.4 % (0.0-0.4); Lymphocytes Absolute Auto 0.4 X10*3/uL (1.2-4.9); Lymphocytes Percent Auto 7.5 % (20-40); Mean Corpuscular HGB Conc 31.2 g/dl (31.0-35.0); Mean Corpuscular Hemoglobin 25.3 pg (27.0-33.0); Mean Corpuscular Volume 81.3 fL (80.0-98.0); Mean Platelet Volume 9.5 fL (9.4-12.3); Monocytes Absolute Auto 0.3 X10*3/uL (0.1-1.2); Monocytes Percent Auto 5.5 % (2-11); Neutrophils Absolute Auto 4.2 x10*3/uL (2.0-8.3); Neutrophils Percent Auto 86.2 % (45-73); Platelet Count 262 X10*3/uL (160-400); Red Cell Distribution Width 14.3 % (11.0-16.0); White Blood Count 4.9 X10*3/uL (4.8-10.8)
[2023-11-28 10:30] LABS: COVID-19 Test Negative (Negative); IDNOW Serial# 08D9AD1C
[2023-11-28 10:31] LABS: IDNOW Serial# 9DB6401D; Influenza A Negative (Negative); Influenza B2 Negative (Negative)
[2023-11-28 10:41] LABS: Alanine Aminotransferase 115 U/L (0-31); Albumin Level 3.8 g/dL (3.5-5.0); Alkaline Phosphatase 70 U/L (39-117); Anion Gap 10 (12-20); Aspartate Amino Transferase 175 U/L (5-31); Bilirubin Total 0.9 mg/dL (0.0-1.0); Blood Urea Nitrogen 10 mg/dL (9-16); Calcium 8.3 mg/dL (8.4-10.2); Carbon Dioxide 25 mmol/L (22-29); Chloride 105 mmol/L (96-108); Creatinine Clr Calc Pharmacy 119.6; Estimated Glomerular Filt Rate > 60; Glucose Random 111 mg/dL (60-115); Lipase 13 U/L (8-78); Potassium 3.5 mmol/L (3.3-5.1); Sodium 136 mmol/L (135-145); Total Protein 7.3 g/dL (6.5-8.0)
[2023-11-28 10:41] LABS: Appearance Urine Clear; Color Urine Dark Yellow; Glucose Urine UA Negative (Negative); Leukocyte Esterase Urine Trace (Negative); Nitrite Urine Negative (Negative); PH 5.5 (5.0-9.0); Specific Gravity - Urine >= 1.030 (1.005-1.025); UMIC TRIGGER UACC YES; Urine Blood Moderate (2+) (Negative); Urine Ketones Trace mg/dL (Negative); Urine Protein 30 (1+) mg/dL (Neg-Trace)
[2023-11-28 10:49] LABS: Troponin-I High Sensitivity 3.5 ng/L (<3.5-17.0)
[2023-11-28 10:56] LABS: Bacteria Urine None Seen (None Seen); WBC Urine 0-5 /HPF (0-5)
[2023-11-28 11:00] VITALS: BP 114/74; PULSE 95; RESP 18; TEMP 36.8; O2SAT 97
--- NOTE | 2023-11-28 12:22 | ED_ITS ---
HPI - General Adult General Chief complaint: Abdominal Pain Stated complaint: stomach pain, vomiting, fever Time Seen by Provider: 11/28/23 09:56 History of Present Illness HPI narrative: The patient is a 42-year-old female with a history of a cholecystectomy who started to experience abdominal pain yesterday morning at around 11:00. She thought at 1st that she might be hungry but when she ate her pain was worse still. She later developed nausea, vomiting, and diarrhea. During the night last night she developed a temperature to 100.5. She continued to feel unwell this morning and came to the emergency room. Related Data Home Medications Medication Instructions Recorded Confirmed acetaminophen 500 mg tablet 1,000 mg PO Q6H PRN fever 08/02/22 08/02/22 aspirin 81 mg tablet,delayed 81 mg PO QAM 08/02/22 11/25/23 release atorvastatin 80 mg tablet 80 mg PO BEDTIME 08/02/22 11/25/23 bupropion HCl 150 mg tablet,12 hr 150 mg PO BID 08/02/22 11/25/23 sustained-release clopidogrel 75 mg tablet 75 mg PO QAM 08/02/22 11/25/23 furosemide 40 mg tablet 40 mg PO QAM 08/02/22 11/25/23 midodrine 10 mg tablet 10 mg PO BID 08/02/22 11/25/23 trazodone 100 mg tablet 100 - 150 mg PO BEDTIME 08/02/22 11/25/23 albuterol sulfate 90 mcg/actuation 2 puff inhalation Q6H PRN wheezing 11/25/23 11/25/23 aerosol inhaler (Ventolin HFA) nitroglycerin 0.4 mg sublingual 0.4 mg sublingual Q5M PRN Chest 11/25/23 11/25/23 tablet (Nitrostat) Pain Previous Rx's Medication Instructions Recorded fluticasone propionate 50 1 spray intranasal Q12H #16 grams 03/19/21 mcg/actuation nasal spray,suspension (Flonase Allergy Relief) cyclobenzaprine 10 mg tablet 10 mg PO TID PRN muscle spasm #14 01/16/23 tabs lidocaine 5 % topical patch 1 patch topical DAILY #15 ea 01/16/23 omeprazole 40 mg capsule,delayed 40 mg PO DAILY #30 caps 10/27/23 release Allergies Allergy/AdvReac Type Severity Reaction Status Date / Time lisinopril [LISINOPRIL] AdvReac Intermediate UPSET Verified 11/28/23 09:49 STOMACH Review of Systems 2 Review of Systems: Yes all other systems are reviewed and are negative [facility] Past Medical History Onset Date is defined in the Problem List Problems that require an onset date and time if occurred within 24 hrs of arrival to the ED Aortic Dissection and Rupture; Neurologic impairment; Cardiopulmonary Arrest; Endotracheal Intubation; Insertion or Replacement of Mechanical Circulatory Assist Device Medical History (Updated 11/28/23 @ 15:50 by Rogelio Anguiano MD) CAD (coronary artery disease) Anxiety Insomnia Elevated cholesterol Chronic hepatitis Coronary arteriosclerosis Arthritis CHF (congestive heart failure) Cyst of perianal area Surgical History (Updated 11/25/23 @ 12:49 by Elise Gonsalez RN) History of heart artery stent Tubal ligation status Social History Social History Alcohol intake: never Smoked in Last 30 Days: No Use of substances other than those prescribed or required for medical reasons: No Advance Directives: No Advance Directives Information Provided: No Current occupational status: employed 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 She looks mildly unwell but not acutely toxic. HENMT Other: Face is symmetrical. Mucous membranes moist. Eyes Other: Pupils are round equal, conjunctivae are clear, extraocular movements intact. Resp Effort & Inspection: normal respiratory effort Auscultation: clear to auscultation bilaterally Cardio Rate: regular rate Rhythm: regular rhythm Heart sounds: S1 normal heart sound present and S2 normal heart sound present GI Other: The abdomen is soft. She is tender in the right lower quadrant. Back/Spine/Pelvis Other: No CVA percussion tenderness Skin Other: The skin is dry and unremarkable. Neuro Other: The patient is awake, alert, pleasant, cooperative. Grossly neurologically intact. Extrem Other: No peripheral edema. Medications Administered Discontinued Medications Generic Name Dose Route Start Last Admin Trade Name Luiza PRN Reason Stop Dose Admin Sodium Chloride 1,000 mls @ 999 mls/hr 11/28/23 12:30 11/28/23 14:35 Ns IV 11/28/23 13:30 Infused .Q1H1M SANYA Infusion Promethazine HCl 12.5 mg/ 50.5 mls @ 202 mls/hr 11/28/23 12:18 11/28/23 13:39 Sodium Chloride IV 11/28/23 12:19 Infused ONCE ONE Infusion Ketorolac Tromethamine 15 mg 11/28/23 12:18 11/28/23 13:01 Ketorolac Tromethamine 15 Mg/Ml Vial IVPUSH 11/28/23 12:19 15 mg ONCE ONE Administration Medical Decision Making Medical Decision Making [facility] Narrative: Patient presents with a 1 day history of abdominal pain. She has had some associated nausea, vomiting and diarrhea and also a low-grade fever. On exam she was primarily tender in her right lower quadrant. My overall suspicion for an acute surgical process was low. She was initially treated with ketorolac and promethazine and IV fluids for her symptoms. She felt somewhat better but remain tender in the right lower quadrant and so we did a CT of the abdomen and pelvis. This was unremarkable. No evidence of appendicitis. She continued to feel better and seemed appropriate for discharge. Lab Data 11/28/23 10:02 11/28/23 10:02 Labs: Lab Results 11/28/23 11/28/23 Range/Units 10:02 10:28 WBC 4.9 (4.8-10.8) X10*3/uL RBC 4.70 (4.20-5.50) X10*6/uL Hgb 11.9 L (12.0-16.0) g/dl Hct 38.2 (37.0-47.0) % MCV 81.3 (80.0-98.0) fL MCH 25.3 L (27.0-33.0) pg MCHC 31.2 (31.0-35.0) g/dl RDW 14.3 (11.0-16.0) % Plt Count 262 (160-400) X10*3/uL MPV 9.5 (9.4-12.3) fL Immature Gran % (Auto) 0.4 (0.0-0.4) % Neut % (Auto) 86.2 H (45-73) % Lymph % (Auto) 7.5 L (20-40) % [place] % (Auto) 5.5 (2-11) % Eos % (Auto) 0.4 (0-4) % Baso % (Auto) 0.0 (0-2) % Lymph # (Auto) 0.4 L (1.2-4.9) X10*3/uL [place] # (Auto) 0.3 (0.1-1.2) X10*3/uL Eos # (Auto) 0.0 (0.0-0.4) X10*3/uL Baso # (Auto) 0.0 (0.0-0.2) X10*3/uL Abs Immat Gran (auto) 0.02 (0.00-0.03) X10*3/uL Absolute Neuts (auto) 4.2 (2.0-8.3) x10*3/uL Absolute Nucleated RBC 0.000 (0.0-0.012) X10*3/uL Nucleated RBC % (auto) 0.0 (0.0-0.2) /100WBC Sodium 136 (135-145) mmol/L Potassium 3.5 (3.3-5.1) mmol/L Chloride 105 (96-108) mmol/L Carbon Dioxide 25 (22-29) mmol/L Anion Gap 10 L (12-20) BUN 10 (9-16) mg/dL Creatinine 0.75 (0.5-1.4) mg/dL Estim Creat Clear Calc 119.6 Estimated GFR > 60 Random Glucose 111 (60-115) mg/dL Calcium 8.3 L D (8.4-10.2) mg/dL Total Bilirubin 0.9 (0.0-1.0) mg/dL AST 175 H (5-31) U/L ALT 115 H (0-31) U/L Alkaline Phosphatase 70 (39-117) U/L Troponin I High Sens 3.5 (<3.5-17.0) ng/L C-Reactive Protein 3.44 H (< or = 0.50) mg/dL Total Protein 7.3 (6.5-8.0) g/dL Albumin 3.8 (3.5-5.0) g/dL Lipase 13 (8-78) U/L Beta HCG, Quant < 2 mIU/mL Urine Color Dark Yellow Urine Appearance Clear Urine pH 5.5 (5.0-9.0) Ur Specific [employer] >= 1.030 H (1.005-1.025) Urine Protein 30 (1+) H (Neg-Trace) mg/dL Urine Glucose (UA) Negative (Negative) mg/dL Urine Ketones Trace (Negative) mg/dL Urine Blood Moderate (2+) H (Negative) Urine Nitrite Negative (Negative) Ur Leukocyte Esterase Trace H (Negative) Urine RBC 6-10 H (0-2) /HPF Urine WBC 0-5 (0-5) /HPF Ur Squamous Epith Cells 3-5 (0-2) /HPF Urine Bacteria None Seen (None Seen) Hyaline Casts 3-5 (0-2) /LPF COVID-19 (KAYCEE) Negative (Negative) COVID-19 Clin Com See Note Influenza Type A (STEVO) Negative (Negative) Influenza Type B (STEVO) Negative (Negative) Influenza A & B Note See Note Discharge Plan Discharge Clinical Impression: Abdominal pain, vomiting, and diarrhea Patient Disposition: Home, Self-Care Additional Instructions: Your testing in the emergency room today is reassuring. There does not seem to be any acutely dangerous process at work. I suspect that you have some kind of viral bug which I hope will be self- limiting. Please take clear fluids today. Eat simple foods like well cooked rice or toast. Rest and take it easy. Please follow-up with your regular doctor if problems continue. Return to the emergency room if significantly worse. Prescriptions: No Action fluticasone propionate [Flonase Allergy Relief] 50 mcg/actuation spray,suspension 1 spray intranasal Q12H Qty: 16 0RF Rx Instructions: administer into each nostril cyclobenzaprine 10 mg tablet 10 mg PO TID PRN (Reason: muscle spasm) Qty: 14 0RF lidocaine 5 % adhesive patch,medicated 1 patch topical DAILY Qty: 15 0RF Rx Instructions: leave on most painful area for up to 12 hrs albuterol sulfate [Ventolin HFA] 90 mcg/actuation HFA aerosol inhaler 2 puff INHALATION Q6H PRN (Reason: wheezing) nitroglycerin [Nitrostat] 0.4 mg Tablet, Sublingual 0.4 mg SUBLINGUAL Q5M PRN (Reason: Chest Pain) Rx Instructions: do not exceed 3 doses per episode omeprazole 40 mg capsule,delayed release(DR/EC) 40 mg PO DAILY Qty: 30 0RF trazodone 100 mg tablet 100 - 150 mg PO BEDTIME bupropion HCl 150 mg tablet sustained-release 12 hr 150 mg PO BID midodrine 10 mg tablet 10 mg PO BID aspirin 81 mg tablet,delayed release (DR/EC) 81 mg PO QAM atorvastatin 80 mg tablet 80 mg PO BEDTIME clopidogrel 75 mg tablet 75 mg PO QAM furosemide 40 mg tablet 40 mg PO QAM acetaminophen 500 mg tablet 1,000 mg PO Q6H PRN (Reason: fever) Referrals: Negra Foster MD [Primary Care Provider] - Interventions: ED Discharge Assessment Last Done: 11/28/23 16:04 Discharge Date/Time: 11/28/23 16:22
[2023-11-28 12:52] LABS: C Reactive Protein 3.44 mg/dL (< or = 0.50)
[2023-11-28 12:54] LABS: HCG Quantitative < 2 mIU/mL
[2023-11-28] MEDS: Ketorolac Tromethamine 15 MG/ML VIAL IVPUSH (13:01)
[2023-11-28] MEDS: 0.9 % Sodium Chloride 1,000 ML 999 ML IV (13:01)
[2023-11-28 13:02] VITALS: BP 111/73; PULSE 83; RESP 20; O2SAT 98
--- NOTE | 2023-11-28 13:04 | PC.NURSE ---
called pharmacy for phenergan, they said it was on backorder. waiting for provider to notify them. IV inserted, fluids infusing, toradol given per MAR
[2023-11-28 16:03] VITALS: PULSE 86; RESP 18; O2SAT 98
== END 2023-11-28 16:22 | disposition home or self-care (01) ==
PROVIDERS: Physician Assistant Medical; Emergency Provider Emergency Medicine; PCP Internal Medicine
DX: R10.31 Right lower quadrant pain (principal); R11.2 Nausea with vomiting, unspecified; R50.9 Fever, unspecified; Z11.52 Encounter for screening for COVID-19; Z20.828 Contact with and (suspected) exposure to other viral communicable diseases; Z79.899 Other long term (current) drug therapy
CPT/HCPCS: 36415; 74177; 80053; 81001; 83690; 84484; 84702; 85025; 86140; 87502; 87635; 93005; 96361; 96374; 96375; 99284; 99285; J1885; J2550

== ENCOUNTER → 2023-11-28 09:59 | Outpatient (BNV) | payer MEDICAID, SELFPAY | PROVIDERS: Emergency Provider Emergency Medicine; PCP Internal Medicine; Visit Provider Internal Medicine Cardiovascular Disease | DX: R94.31 Abnormal electrocardiogram [ECG] [EKG] (principal) | CPT/HCPCS: 93010 ==

== ENCOUNTER 2023-12-02 14:15 | Outpatient (AMB) | payer MEDICAID, SELFPAY ==
--- NOTE | 2023-12-02 14:18 | MHC.OFFVIS ---
Intake Vital Signs 12/02/23 14:27 Height 5 ft 6 in Weight 229 lb BMI 37.0 BP 104/77 Blood Pressure Location Rt brachial Position Sitting Pulse 84 Intake Visit Reasons: cyst on pancreas Intake Note: Patient referred by pcp Dr. Foster for cyst on pancreas. MRI done on 11-11-23. Patient c/o: constipation. Was seen at ER last week due to severe abd pain. Was diagnosed with stomach bug. Body Maker Required: No Accompanied by: Self / Same As Patient Allergies lisinopril [LISINOPRIL] Adverse Reaction (Intermediate, Verified 12/02/23 14:23) UPSET STOMACH Medication List - Last Reconciled 12/02/23 by Otilio Card MD acetaminophen 1,000 mg PO Q6H PRN albuterol sulfate 90 mcg/actuation (Ventolin HFA) 2 puffs inhalation Q6H PRN aspirin 81 mg PO QAM fluticasone propionate 50 mcg/actuation (Flonase Allergy Relief) 1 spray intranasal Q12H furosemide 40 mg PO QAM lidocaine 5% 1 patch topical DAILY midodrine 10 mg PO BID nitroglycerin (Nitrostat) 0.4 mg sublingual Q5M PRN omeprazole 40 mg PO DAILY trazodone 100 - 150 mg PO BEDTIME HPI HPI Comments History of Present Illness Details Patient presents status post ER visit where she had a CT scan the abdomen and pelvis for abdominal issues and was found to have an incidental finding of a cystic mass of the tail of the pancreas. Patient subsequently had an MRI which confirmed this process. Aside from constipation, she has no specific GI issues or complaints. She is status post laparoscopic cholecystectomy and tubal ligation. 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 GI Other: Very corpulent abdomen. Laparoscopic scars well healed. Soft, benign Assessment & Plan Assessment & Plan (1) Cystic mass of pancreas: Code(s): K86.2 - Cyst of pancreas Plan: Have reviewed patient's studies and scans, the radiologic recommendation is for a six-month follow-up for surveillance of the tail of pancreas cyst with small associated nodules. This was discussed with the patient at length and she agrees with the plan. Any issues or complaints during this interim, she is instructed to call the office. Otherwise we will see her in 6 months time status post MRI pancreas. All questions answered. Orders: Orders MR abdomen wo/w con 6 Months K86.2 - Cyst of pancreas Coding Level of Care Code New Pt Level 4 (62958) Diagnoses Cystic mass of pancreas K86.2
[2023-12-02 14:27] VITALS: BP 104/77; PULSE 84; BMI 37.0
== END 2023-12-02 14:37 | disposition home or self-care (01) ==
PROVIDERS: PCP Internal Medicine; Referring Provider Internal Medicine; Visit Provider Surgery
DX: K86.2 Cyst of pancreas (principal)
CPT/HCPCS: 99204

== ENCOUNTER → 2023-12-02 14:15 | Outpatient (BNVA) | payer MEDICAID, SELFPAY | PROVIDERS: PCP Internal Medicine; Visit Provider Surgery | DX: K86.2 Cyst of pancreas (principal) | CPT/HCPCS: 99202 ==

== ENCOUNTER → 2023-12-29 12:45 | Outpatient (BNV) | payer MEDICAID, SELFPAY | PROVIDERS: PCP Internal Medicine; Visit Provider Radiology Diagnostic Radiology | DX: Z12.31 Encounter for screening mammogram for malignant neoplasm of breast (principal) | CPT/HCPCS: 77063; 77067 ==

== ENCOUNTER 2023-12-29 12:53 | Outpatient (REF) | payer MEDICAID, SELFPAY ==
--- NOTE | ~2023-12-29 | MM_ITS ---
EXAMINATION: MM SCREENING DIGITAL BREAST TOMOSYNTHESIS, BILATERAL CLINICAL INFORMATION: Screening. Asymptomatic. COMPARISON: Mammography: This study is compared with prior exams dating back to 2022. TECHNIQUE: Digital breast tomosynthesis is performed in both the craniocaudal and mediolateral oblique views along with computer-aided detection (CAD). Synthesized 2D images are generated from the tomosynthesis. FINDINGS: There are scattered areas of fibroglandular density (ACR BI-RADS breast composition Category b). There are no significant masses, abnormal calcifications, or other abnormalities. MM/MM tomosynthesis screening BI IMPRESSION: No mammographic evidence of malignancy. ASSESSMENT: BI-RADS BI-RADS 1 - Negative RECOMMENDATION: Routine annual mammography screening. 1 year F/U This examination should not preclude the clinical evaluation of a suspicious palpable abnormality. This patient's information was entered into a reminder system with a target due date for their next mammogram.
== END 2023-12-29 12:54 | disposition home or self-care (01) ==
LOC: HO.MAMMO 12:53
PROVIDERS: PCP Internal Medicine; Visit Provider Internal Medicine
DX: Z12.31 Encounter for screening mammogram for malignant neoplasm of breast (principal)
CPT/HCPCS: 77063; 77067

== ENCOUNTER 2024-01-22 16:00 | Outpatient (RCR) | payer MEDICAID, SELFPAY ==
--- NOTE | 2023-12-25 18:09 | MHC.PT.EP ---
[facility] [place] Office [place] Office [place] Office [address] Malik Watts [address] [phone] F: [phone] F: [phone] F: [phone] F: [phone] Physical Therapy Plan of Care Date of Evaluation: 12/25/23 Date of Surgery: Diagnosis: BILATERAL chronic knee pain Assessment: Patient is a pleasant, 42 y.o. female who is referred to PT by Dr. Negra Foster MD, with Dx of chronic pain in RIGHT and LEFT knees. She presents with muscle imbalances in L hip/knee, likley from compensations. Patient impairments include poor posture, antalgic gait, limited ROM, weakness in knee and hip. Patient current functional limitations are sit to stand, prolonged walking, walking outside, hills, squat.Patient will benefit from skilled PT to address aforementioned impairments and functional limitations to meet established goals. Frequency and Duration: The patient will be seen 2x/week for 4 weeks Short Term Goals: 2 weeks Patient demonstrates consistency and independence with HEP to self manage symptoms. Fdc Goals: 4 weeks Patient presents with increased LEFT knee flexion 110 degrees to be able to perform sit to stand to low surfaces. Patient presents with increased LEFT knee extension strength 4+/5 to be able to ascend/descend reciprocal stairs at home. sit to stand, prolonged walking, walking outside, hills, squat Treatment Plan: Modalities to reduce pain, spasms and effusion. Manual therapy to restore motion and function. Therapeutic exercise to improve strength and flexibility. Neuromuscular re-education for posture and balance. Therapeutic activities to return to functional activities of daily living. Electronically signed by: Dominique Teran, PT, DPT Please sign and return to therapist. Thank you for your referral.
--- NOTE | 2024-04-13 16:06 | MHC.PT.DC ---
[facility] [place] Office [place] [facility] [place] [address] Malik Watts [address] [phone] F: [phone] F: [phone] F: [phone] F: [phone] Physical Therapy Discharge Report Diagnosis: BILATERAL chronic knee pain Date of Surgery: Date of Evaluation: 12/25/23 Date of Discharge: 04/13/24 Treatments to Date: 5 Cancellations to Date: 3 No Shows to Date: 4 Discharge Status: Patient Elected to Stop Visit Non-compliance Discharge Summary: Kamille was last seen for PT session on 01/22/2024, the assessment reads, She is maintaining gains made in ROM in her knee, but pain remains limiting factor. Her quadriceps muscle is very weak, with difficulty completing SLR without quad lag and fatigue. I educate her on this and the importance of consistency with HEP to strengthen her quad. I did not perform WBing exercises today due to her subjective c/o sxs. She did not show to her remaining PT visits and is discharged for non compliance. Electronically signed by: Dominique Teran, PT, DPT Please sign and return to therapist. Thank you for your referral.
== END 2024-04-13 16:06 | disposition home or self-care (01) ==
LOC: HO.PT 16:00
PROVIDERS: PCP Internal Medicine; Visit Provider Internal Medicine
DX: M25.561 Pain in right knee (principal); M25.562 Pain in left knee; G89.29 Other chronic pain
CPT/HCPCS: 97110; 97140; 97162

== ENCOUNTER 2024-01-23 07:07 | Day surgery (SDC) | payer MEDICAID, SELFPAY ==
[2023-11-25 11:09] VITALS: BMI 36.6
--- NOTE | 2023-11-26 12:00 | HO.ANESPROP2 ---
HPI - Anesthesia Eval Consult details Narrative: Resched to 01/2024 42yo F for Upper Endoscopy Follows [facility] cardiology for CAD, ICM (hx cocaine, IVDA). Last office visit 03/2023. Stable and ok for yearly f/u. s/p STEMI 2009 with PATRICIA x 2 s/p NSTEMI 2011 with balloon angioplasty s/p STEMI 2017 s/p BMS PMFSH Active Problems Active Problems: All Active Problems (Updated 11/25/23 @ 12:45 by Elise Gonsalez RN) Patellofemoral arthritis of left knee (Acute) Past Medical History Medical History CAD (coronary artery disease) Anxiety Insomnia Elevated cholesterol Chronic hepatitis Coronary arteriosclerosis Arthritis CHF (congestive heart failure) Cyst of perianal area Surgical History Surgical History History of heart artery stent Tubal ligation status Social History Social History (Updated 12/02/23 @ 14:26 by JESSICA العلي) Alcohol intake: never Cigarettes Per Day: 2 Current occupational status: employed 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 Meds Allergies Allergy/AdvReac Type Severity Reaction Status Date / Time lisinopril [LISINOPRIL] AdvReac Intermediate UPSET Verified 12/02/23 14:23 STOMACH Home Medications Medication Instructions Recorded Confirmed Last Taken Type acetaminophen 500 mg tablet 1,000 mg PO Q6H PRN fever 08/02/22 08/02/22 Unknown History aspirin 81 mg tablet,delayed 81 mg PO QAM 08/02/22 11/25/23 Unknown History release furosemide 40 mg tablet 40 mg PO QAM 08/02/22 11/25/23 Unknown History midodrine 10 mg tablet 10 mg PO BID 08/02/22 11/25/23 Unknown History trazodone 100 mg tablet 100 - 150 mg PO BEDTIME 08/02/22 11/25/23 Unknown History albuterol sulfate 90 mcg/actuation 2 puff inhalation Q6H PRN wheezing 11/25/23 11/25/23 Unknown History aerosol inhaler (Ventolin HFA) nitroglycerin 0.4 mg sublingual 0.4 mg sublingual Q5M PRN Chest 01/09/24 01/09/24 Unknown History tablet (Nitrostat) Pain Exam Height,Weight and Vital Signs: Height 5 ft 6 in Weight 102.965 kg Pertinent Lab Results Pertinent Lab Results: Laboratory Tests 10/31/23 19:58 WBC 7.0 Hgb 11.8 L Hct 36.9 L Plt Count 274 Sodium 141 Potassium 3.7 Chloride 105 Carbon Dioxide 26 BUN 8 L Creatinine 0.91 Narrative Narrative: EKG 03/2023 NSR Low volt QRS Inferior infarct Anterolateral infarct ECHO 2019 LV mildly dilated. LV wall thickness is nml. LV systolic function is mildly reduced. LVEF 40-45%. Distal anterior, anteroseptal, inferoseptal wall are severely hypokinetic to akinetic. Apis is dyskinetic. No definite evidence of LV thrombus. No Doppler evidence of increase filling pressures. RV is nml in size and function. Assessment and Plan Assessment Anesthesia Assessment: Chart Reviewed
--- NOTE | 2023-11-28 08:27 | PC.NURSE ---
pt cancelled fever chills will reschedule
--- NOTE | 2024-01-21 14:40 | P.CONAN_ITS ---
Documented by User: Laney Osborne NP 01/22/24 13:33 HPI - Anesthesia Eval Consult details Narrative: 43yo F for Upper Endoscopy ASA and plavix - ok to hold per cardiology Follows [facility] cardiology for CAD, ICM (hx cocaine, IVDA). Last office visit 03/2023. Stable and ok for yearly f/u. s/p STEMI 2009 with PATRICIA x 2 s/p NSTEMI 2011 with balloon angioplasty s/p STEMI 2016 s/p BMS PMFSH Active Problems Active Problems: All Active Problems (Updated 11/29/23 @ 00:01 by Background Momo) Cystic mass of pancreas (Acute) Patellofemoral arthritis of left knee (Acute) Past Medical History Medical History CAD (coronary artery disease) Anxiety Insomnia Elevated cholesterol Chronic hepatitis Coronary arteriosclerosis Arthritis CHF (congestive heart failure) Cyst of perianal area Surgical History Surgical History History of heart artery stent Tubal ligation status Social History Social History Alcohol intake: never Patient Tobacco Use Status: Former Tobacco user Cigarettes Per Day: 2 Are you DNR?: No Advance Directives: No Advance Directives Information Provided: Yes Nutrition Risks: No Nutritional Risk Current occupational status: employed 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 Meds Allergies Allergy/AdvReac Type Severity Reaction Status Date / Time lisinopril [LISINOPRIL] AdvReac Intermediate UPSET Verified 12/02/23 14:23 STOMACH Home Medications Medication Instructions Recorded Confirmed Last Taken Type acetaminophen 500 mg tablet 1,000 mg PO Q6H PRN fever 08/02/22 08/02/22 Unknown History aspirin 81 mg tablet,delayed 81 mg PO QAM 08/02/22 11/25/23 Unknown History release furosemide 40 mg tablet 40 mg PO QAM 08/02/22 11/25/23 Unknown History midodrine 10 mg tablet 10 mg PO BID 08/02/22 11/25/23 Unknown History trazodone 100 mg tablet 100 - 150 mg PO BEDTIME 08/02/22 11/25/23 Unknown History albuterol sulfate 90 mcg/actuation 2 puff inhalation Q6H PRN wheezing 11/25/23 11/25/23 Unknown History aerosol inhaler (Ventolin HFA) nitroglycerin 0.4 mg sublingual 0.4 mg sublingual Q5M PRN Chest 11/25/23 11/25/23 Unknown History tablet (Nitrostat) Pain Exam Height,Weight and Vital Signs: Height 5 ft 6 in Weight 102.965 kg Pertinent Lab Results Pertinent Lab Results: Laboratory Tests 10/31/23 19:58 WBC 7.0 Hgb 11.8 L Hct 36.9 L Plt Count 274 Sodium 141 Potassium 3.7 Chloride 105 Carbon Dioxide 26 BUN 8 L Creatinine 0.91 Narrative Narrative: EKG 11/2023 Vent. Rate : 098 BPM Atrial Rate : 098 BPM P-R Int : 122 ms QRS Dur : 084 ms QT Int : 330 ms P-R-T Axes : 026 -39 023 degrees QTc Int : 421 ms Normal sinus rhythm Left axis deviation Low voltage QRS Possible Anterolateral infarct , age undetermined Abnormal ECG (No change from previous at outside facility) ECHO 2020 LV mildly dilated. LV wall thickness is nml. LV systolic function is mildly reduced. LVEF 40-45%. Distal anterior, anteroseptal, inferoseptal wall are severely hypokinetic to akinetic. Apis is dyskinetic. No definite evidence of LV thrombus. No Doppler evidence of increase filling pressures. RV is nml in size and function. Assessment and Plan Assessment Anesthesia Assessment: Chart Reviewed Documented by User: Anastasiya Kruse MD 01/23/24 07:50 PMFSH Past Medical History Medical History CAD (coronary artery disease) Anxiety Insomnia Elevated cholesterol Chronic hepatitis Coronary arteriosclerosis Arthritis CHF (congestive heart failure) Cyst of perianal area Family History Family history of problems with anesthesia: No Surgical History Surgical History History of heart artery stent Tubal ligation status History of Problems with Anesthesia: No Social History Social History Alcohol intake: never Patient Tobacco Use Status: Former Tobacco user Cigarettes Per Day: 2 Are you DNR?: No Advance Directives: No Advance Directives Information Provided: Yes Nutrition Risks: No Nutritional Risk Current occupational status: employed 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 Meds Allergies Allergy/AdvReac Type Severity Reaction Status Date / Time lisinopril [LISINOPRIL] AdvReac Intermediate UPSET Verified 12/02/23 14:23 STOMACH Home Medications Medication Instructions Recorded Confirmed Last Taken Type acetaminophen 500 mg tablet 1,000 mg PO Q6H PRN fever 08/02/22 08/02/22 Unknown History aspirin 81 mg tablet,delayed 81 mg PO QAM 08/02/22 11/25/23 Unknown History release furosemide 40 mg tablet 40 mg PO QAM 08/02/22 11/25/23 Unknown History midodrine 10 mg tablet 10 mg PO BID 08/02/22 11/25/23 Unknown History trazodone 100 mg tablet 100 - 150 mg PO BEDTIME 08/02/22 11/25/23 Unknown History albuterol sulfate 90 mcg/actuation 2 puff inhalation Q6H PRN wheezing 11/25/23 11/25/23 Unknown History aerosol inhaler (Ventolin HFA) nitroglycerin 0.4 mg sublingual 0.4 mg sublingual Q5M PRN Chest 11/25/23 11/25/23 Unknown History tablet (Nitrostat) Pain Exam Airway Mallampati Class: II TM Dist: <=3cm Neck ROM: Limited Heart: rrr Lungs: cta Assessment and Plan Assessment Anesthesia Assessment: Anesthesia Plan Discussed Final Anesthetic Review Family History of Problems with Anesthesia: No History of Problems with Anesthesia: No NPO: Yes ASA Class: III Final Preanesthetic Review: No Changes in Pt Med Stat, Meds/Allgs Chart Reviewed, Consent Obtained/Reviewed and Anes Risks/Benef Reviewed Patient Risk: Intermediate Procedure Risk: Intermediate (very stimulating procedure with risk of laryngospasm ) Anesthetic Plan Anesthetic Plan: MAC: Disposition: Standard PACU
[2024-01-23 07:27] VITALS: BMI 36.3
[2024-01-23] MEDS: Lactated Ringers 1,000 ML 50 ML IVCONT (07:35)
[2024-01-23 07:51] VITALS: BP 102/65; PULSE 80; RESP 18; TEMP 36.7; O2SAT 97
--- NOTE | 2024-01-23 08:12 | PC.NURSE ---
Dr. Fernandez and Dr. Kruse aware that patient reports that she is non-compliant with taking her Plavix. Patient reports that her cloth bolt bander is aware.
--- NOTE | 2024-01-23 08:19 | MHC.SHP ---
Pre-Procedural Eval Section A - 24 Hr Update-Section A only Date of Service: 01/23/24 Section B - Complete if H&P > 30 days Chief Complaint: Abnormal findings on diagnostic imaging of other p Details of Present Illness: see H&P no changes Relevant Family History (Specify if Yes): No Relevant Social History: None Present Medications: see Short Stay Collaborative assessment Medical History: No relevant PMH History of Previous Operations: No relevant previous surgery Allergies: Allergies Allergy/AdvReac Type Severity Reaction Status Date / Time lisinopril [LISINOPRIL] AdvReac Intermediate UPSET Verified 01/23/24 07:53 STOMACH Review of Systems Sugical H&P ROS: Negative: Constitution, Cardiovascular, Respiratory, Neurological, Psychiatric, Hem-Onc, Allergic/Immunologic, Gastrointestinal, Genitourinary, Musculoskeletal, Integumentary, Endocrine and Eyes/Ears/Nose/Throat Exam Surgical H&P Exam: Normal: HEENT, Normal: Heart, Normal: Lungs, Normal: Extremities, Normal: Abdomen, Normal: Skin and Normal: Neurological Plan Diagnosis/Plan: Unchanged I have reviewed the history and physical and performed a pertinent physical examination on my patient. No changes have occurred unless specified. Time Spent With Patient Time: Total time managing care of this patient today ____ minutes.
[2024-01-23 08:49] VITALS: BP 102/60; PULSE 86; RESP 18; TEMP 36.6; O2SAT 98
[2024-01-23 09:04] VITALS: BP 102/64; PULSE 79; RESP 16; O2SAT 96
[2024-01-23 09:17] VITALS: BP 104/65; PULSE 80; RESP 16; TEMP 36.4; O2SAT 96
--- NOTE | 2024-01-23 09:21 | OP_ITS ---
DATE OF SERVICE: 01/23/2024 SURGEON: José Miguel Soto MD INDICATIONS: Abnormal CT scan of the stomach and duodenum. PREOPERATIVE DIAGNOSIS: POSTOPERATIVE DIAGNOSIS: PROCEDURE PERFORMED: Upper endoscopy with biopsy. ESTIMATED BLOOD LOSS: COMPLICATIONS: ANESTHESIA: Monitored anesthesia care. ASSISTANTS: SPECIMENS: DESCRIPTION OF PROCEDURE: A history and physical performed. The risks and benefits of the procedure were explained to the patient. Informed consent was obtained. The patient placed in the left lateral decubitus position. The Olympus video gastroscope was introduced into the esophagus, stomach, and duodenum. Examination was performed. The scope was removed. She tolerated the procedure well and was taken to recovery in stable condition. FINDINGS: Esophagus: The esophagus was normal. The EG junction was slightly irregular. This was biopsied. Stomach: The stomach showed some pre-pyloric fold thickening and erythema consistent with gastritis. There was a single superficial erosion measuring approximately 5 x 3 mm. Biopsies were obtained from the antrum. Duodenum: The bulb and 2nd portion were normal. IMPRESSION: Gastritis. RECOMMENDATION: Follow up the biopsy results. MD JORGE Dejesus/PETRAL / [id number]
--- NOTE | 2024-01-23 12:08 | P.BOP_ITS ---
Brief Operative Note Date of Service: 01/23/24 Pre-op diagnosis: abnl xray Post-op diagnosis: same Surgeon: José Miguel Soto MD Anesthesia: MAC Was an Chemical Laboratory Chief used for this Procedure?: No Estimated blood loss (mL): 2 Pathology: other Condition: stable Disposition: PACU
== END 2024-01-23 09:55 | disposition home or self-care (01) ==
PROVIDERS: PCP Internal Medicine; Visit Provider Internal Medicine Gastroenterology
PROC: 0DJ08ZZ Inspection of Upper Intestinal Tract, Via Natural or Artificial Opening Endoscopic (ICD-10-PCS; CPT 43235; principal; 2024-01-23 08:20)
DX: R93.3 Abnormal findings on diagnostic imaging of other parts of digestive tract (principal); K29.70 Gastritis, unspecified, without bleeding; K59.00 Constipation, unspecified; E78.5 Hyperlipidemia, unspecified; E55.9 Vitamin D deficiency, unspecified; I25.10 Atherosclerotic heart disease of native coronary artery without angina pectoris; Z95.5 Presence of coronary angioplasty implant and graft; I25.2 Old myocardial infarction; I50.9 Heart failure, unspecified; I25.5 Ischemic cardiomyopathy; B18.2 Chronic viral hepatitis C; Z79.82 Long term (current) use of aspirin; Z79.01 Long term (current) use of anticoagulants; Z79.51 Long term (current) use of inhaled steroids; Z79.899 Other long term (current) drug therapy; Z88.8 Allergy status to other drugs, medicaments and biological substances; Z90.49 Acquired absence of other specified parts of digestive tract; Z87.891 Personal history of nicotine dependence
CPT/HCPCS: 43239; 88305; 88313; 88342; J1100; J2704; J3010

== ENCOUNTER 2024-05-24 08:21 | Outpatient (REF) | payer MEDICAID, SELFPAY ==
--- NOTE | ~2024-05-24 | MR_ITS ---
EXAMINATION: MR ABDOMEN WITHOUT AND WITH CONTRAST CLINICAL INFORMATION: Pancreatic tail mass, surveillance COMPARISON: 11/28/2023 CT abdomen pelvis TECHNIQUE: MRI of the abdomen before and after the IV administration of 10 mL of Gadavist was obtained using routine sequences. Heavily T2 weighted MRCP sequences were also obtained. FINDINGS: LUNG BASES: Lingular and right middle lobe atelectasis. KIDNEYS AND URETERS: The lower poles of the kidneys were excluded from the [id number] on the axial sequences limiting evaluation. GALLBLADDER: Status post cholecystectomy. LIVER AND BILIARY TREE: Few scattered simple hepatic cysts. Mild loss of signal on opposed phase imaging compatible with hepatic steatosis. Common bile duct measures 6 mm which is within normal limits of caliber with no intraluminal filling defect to suggest choledocholithiasis. PANCREAS: A 1.3 cm cyst in the pancreatic tail, not increased in size from prior previously 1.4 cm and a few additional subcentimeter pancreatic cysts, for example 5:17 and 18 not previously discerned given differences in technique. No solid components or pancreatic duct dilatation. SPLEEN: Unremarkable ADRENAL GLANDS: Unremarkable GASTROINTESTINAL TRACT: Unremarkable. LYMPH NODES: No lymphadenopathy. VASCULAR: Unremarkable ABDOMINAL WALL: Small fat-containing umbilical hernia. OSSEOUS STRUCTURES: Unremarkable. MR/MR abdomen wo/w con IMPRESSION: 1. A 1.3 cm cyst in the pancreatic tail, not increased in size from prior and a few additional subcentimeter pancreatic cysts not previously discerned given differences in technique. No high-risk stigmata. Recommend one-year follow-up contrast enhanced MR/MRCP to assess stability. 2. Mild hepatic steatosis. 3. The lower poles of the kidneys were excluded from the [id number]-hf-chxw on the axial sequences limiting evaluation.
[2024-05-24] MEDS: gadobutroL 10 ML VIAL IVPUSH (09:17)
== END 2024-05-24 08:22 | disposition home or self-care (01) ==
LOC: HO.MRI 08:21
PROVIDERS: PCP Internal Medicine; Visit Provider Surgery
DX: K86.2 Cyst of pancreas (principal)
CPT/HCPCS: 74183; A9585

== ENCOUNTER 2024-06-22 10:41 | Outpatient (AMB) | payer MEDICAID, SELFPAY ==
--- OUTSIDE RECORDS SUMMARY | 2024-06-22 10:43 | XMS_ITS ---
Author Organization [facility] Address [address] [place] [address] Care Team Providers Care Clerk Checker Name Role Phone Cristian CHAPARRO, Negra Primary Care Provider Unavail ramsey Soto Jr, José Miguel Sarabia REASON FOR VISIT FYI/ NO SHOWED /NO RETURN CALL FOR MRI ORDER Encounters Encounter Location Date Provider Diagnosis [facility] [address] [place] [address] 03/31/2024 José Miguel Soto Jr PLAN OF TREATMENT Next Appt Details Provider Name:José Miguel weber Jr, 07/22/2024 01:35:00 PM, [address] [place] [address], [address], [place], [address],
--- OUTSIDE RECORDS SUMMARY | 2024-06-22 10:43 | XMS_ITS | Patient Health Record ---
Author Organization [facility] Address [address] [place] [address] Care Team Providers Care Quality Assurance Monitor Body Name Role Phone Negra Foster MD Primary Care Provider Unavail able José Miguel Soto Jr Unavailable [phone] Medardo Ledbetter Unavailable [phone] ALLERGIES Allergen (clinical drug ingredient) Drug/Non Drug Allergy documented on EMR Reaction Allergy Type Onset Date Status lisinopril Lisinopril Unknown Drug Allergy Activ e RESULTS Component Value Reference Range Notes Pathology Reviewed date:02/05/2024 08:27:57 AM Interpretation: Performing Lab:[facility], [address] [place] [phone] Notes/Report: REASON FOR REFERRAL Referring Provider First Name Negra Referring Provider Last Name Cristian Referring Provider Speciality Family Pra ctice Referred Organization [facility] Referred Provider José Miguel Soto Jr Referred Address [address] [place] [address],[place] [address] [place] [phone], Referred Provider Specialty Gastroentero logy General Notes Felisa Alvarenga 023 02:22:45 PM EST > requested a [facility] referral from [facility] for visit with Dr. Soto on [phone] Referral Priority Routine MEDICATIONS Medication SIG (Take, [...] BY MOUTH EVERY DAY Oral for 30 days Active Atorvastatin Calcium 80 MG TAKE 1 [...] CT scan, gastrointestinal tract (R93.3) Active confirmed [id number] VITAL SIGNS Temperature 98.0 degrees Fahrenheit 11/03/2023 Blood pressure diastolic 00 mm Hg 11/03/2023 Height 5 ft 6 in in 11/03/2023 Blood pressure systolic 000 mm Hg 11/03/2023 Weight 227 lb 4 oz lbs 11/03/2023 BMI 36.68 kg/m2 11/03/2023 Encounters Encounter Location Date Provider Diagnosis [facility] Outpatient [address] [place] [id number] 11/28/2023 José Miguel Soto Jr [facility] Outpatient [address] [place], [place] [phone] 01/23/2024 José Miguel Soto Jr Abnormal MRI of abdomen R93.5 [facility] [address] [place] [address] 01/29/2024 José Miguel Soto Jr [facility] [address] [place] [address] 11/03/2023 José Miguel Soto Jr Abnormal CT scan, gastrointestinal tract R93.3 [facility] [address] [place] [address] 10/29/2023 Medardo Ledbetter [facility] [address] [place] [address] 11/24/2023 José Miguel Soto Jr [facility] [address] [place] [address] 12/02/2023 José Miguel Soto Jr [facility] [address] [place] [address] 02/05/2024 José Miguel Soto Jr [facility] [address] [place] [address] 03/31/2024 José Miguel Soto Jr ASSESSMENTS Encounter Date Diagnosis Assessment Notes Treatment Notes Treatment Clinical Notes 01/23/2024 Abnormal MRI of abdo men (ICD-10 - R93.5) 11/03/[address] scan, gastrointestinal tract (ICD-10 - R93.3) Digestive diseases material was printed PLAN OF TREATMENT Pending Test Test Name Order Date MRI ABD W&WO CONTRAST 11/03/2023 Future Test Test Name Order Date UPPER GI ENDOSCOPY 11/03/2023 Next Appt Details Provider Name:José Miguel weber Jr, 07/22/2024 01:35:00 PM, [address], [address], [place], [address], Insurance Providers Payer Name Payer Address Payer Phone Subscriber Number Group Number Insured Name Patient Relationship to Insured Coverage Start Date Coverage End Date MEDICA[place] OF [place] [address] [place] [id number] SAGASTUME HUONG Self - patient is the insured MEDICAL (GENERAL) HISTORY Medical History History ICD Code Coronary artery disease with history of PR. Status post PCI with stent placement x3. Ischemic cardiomyopathy, EF 40-45% by ec ho 2019 Constipation Hyperlipidemia Elevated body mass index Surgical History Surgery Date(Month/Year) Cholecystectomy 2021 Coronary artery stent placement x3
--- OUTSIDE RECORDS SUMMARY | 2024-06-22 10:43 | XMS_ITS ---
Author Organization [facility] Address [address] [place] [address] Care Team Providers Care Supervisor Pipe Finishing Name Role Phone Cristian CHAPARRO, Negra Primary Care Provider Unavail ramsey Soto Jr, José Miguel Sarabia REASON FOR VISIT pathology MEDICATIONS Medication SIG (Take, Route, Fr equency, Duration) Notes Start Date End Date Status Omeprazole 40 MG TAKE 1 CAPSULE BY MO UTH EVERY DAY Oral for 30 days Active Encounters Encounter Location Date Provider Diagnosis [facility] [address] [place] [address] [place] [phone] 02/05/2024 José Miguel Soto Jr PLAN OF TREATMENT Medication Medication Name Sig Start Date Stop Date Notes Omeprazole 40 MG TAKE 1 CAPSULE BY MO UTH EVERY DAY Oral for 30 days Next Appt Details Provider Name:José Miguel weber Jr, 07/22/2024 01:35:00 PM, [address] [place] [address], [address], [place], [address],
--- OUTSIDE RECORDS SUMMARY | 2024-06-22 10:43 | XMS_ITS ---
Author Organization [facility] Address [address] [place] [address] Care Team Providers Care Film Critic Name Role Phone Cristian CHAPARRO, Negra Primary Care Provider Unavail ramsey Soto Jr, José Miguel Sarabia REASON FOR VISIT GASTRIC WALL THICKENING, SPOT ON LIVER Encounters Encounter Location Date Provider Diagnosis [facility] [address] [place] [phone] 01/29/2024 José Miguel Soto Jr PLAN OF TREATMENT Next Appt Details Provider Name:José Miguel weber Jr, 07/22/2024 01:35:00 PM, [address] [place] [address], [address], [place], [address],
--- OUTSIDE RECORDS SUMMARY | 2024-06-22 10:43 | XMS_ITS | Continuity of Care Document ---
Author Organization [facility] Address [address] [place] [address]- Care Team Providers Care Timber Framer Name Role Phone Cristian CHAPARRO, Negra Tan Primary Care Physician Encounter [facility] Date(s): 11/03/23 - 12/03/23 [facility] [address] [place] [address] [place] Allergies, Adverse Reactions, Alerts Substance Reaction Severity [...] Maintenance, 04/25/17 12:06:43, Route to Pharmacy Electronically, [id number], [facility] Start Date: 04/25/17 Stop Date: 04/20/18 Status: Ordered atorvastatin 80 mg oral tablet = 80 mg, By Mouth, Daily at bedtime, # 30 tablet, 3 Refills, Maintenance, Tablet, Route to PharmacyElectronically, [id number], [facility] Start Date: 04/25/17 Stop [...] 04/10/23 8:06:00 EDT, Route to Pharmacy Electronically, [facility], 168, cm, 03/25/23 12:59:00 EDT, Height, 106, kg, 03/11/22 23:48:00 EDT, Dry Weight Start Date: 04/10/23 Status: Ordered Lasix 40 mg oral tablet 20 mg, 0.5, tablet, By Mouth, Daily, # 60 tablet, Refills 4, Tot. Refills 4, Maintenance, 03/24/19 13:05:54 EDT, Route to Pharmacy Electronically, [facility] Start Date: 03/24/19 Status: Ordered midodrine 10 mg oral tablet 1 tablet, By Mouth, 2 times a day, TAKE 1 DOSE IN THE MORNING & SECOND DOSE 5 HOURS LATER, # 60tablet, 5 Refills, Maintenance, 09/15/23 7:41:00 EDT, [facility], 168, cm, 03/25/23 12:59:00 EDT, Height, 106, kg, 03/11/22 23:48:00 ED... Start Date: 09/15/23 Status: Ordered nitroglycerin 0.4 mg sublingual tablet [...] 10/29/21 10:14:00 EST, [id number] Partial fill upon patientrequest if the prescription [...] CENTER Outreach Member Role: PCP Address: Address: [address] [place] [address] Name: Lexis Root RN Position: [facility] RN Member Role: Primary Care Nurse Name: Avani Le RN Position: [facility] RN Member Role: Primary Care Nurse Care Team Related Persons Name: NEGRA TAY Address: [address] [place] [address] Name: NICOLE CORREIA Address: home [address] [place] [address]
[2024-06-22 11:11] VITALS: BP 127/77; PULSE 73
--- NOTE | 2024-06-22 11:11 | A.OFFVIS_ITS ---
Vital Signs 06/22/24 11:11 Weight 225 lb BP 127/77 Blood Pressure Location Rt brachial Position Sitting Pulse 73 Intake Visit Reasons: MRI Results Intake Note: Patient here to discuss Abd MRI on 05-24-24 results. Asset Protection Representative Required: No Accompanied by: Self / Same As Patient Allergies lisinopril [LISINOPRIL] Adverse Reaction (Intermediate, Verified 06/22/24 11:12) UPSET STOMACH HPI Comments Details: Patient presents for follow-up surveillance of asymptomatic pancreatic cyst/mass. She has no GI issues or complaints. She is being seen by GI for occasional dyspeptic symptoms and takes omeprazole for this. Otherwise she is tolerating her diet, having regular bowel habits. She had there been yellow or jaundice. No change in the color of her stool or urine. 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 All questions answered. Orders: Orders MR MRCP 11 Months K86.2 - Cyst of pancreas Coding Level of Care Code Est Pt Level 4 (65846) Diagnoses Cystic mass of pancreas K86.2
== END 2024-06-22 11:18 | disposition home or self-care (01) ==
LOC: HO.HGS 10:41
PROVIDERS: PCP Internal Medicine; Referring Provider Internal Medicine; Visit Provider Surgery
DX: K86.2 Cyst of pancreas (principal)
CPT/HCPCS: 99213

== ENCOUNTER → 2024-06-22 10:41 | Outpatient (BNVA) | payer MEDICAID, SELFPAY | PROVIDERS: PCP Internal Medicine; Visit Provider Surgery | DX: K86.2 Cyst of pancreas (principal) | CPT/HCPCS: 99212 ==

== ENCOUNTER 2024-07-13 18:56 | Emergency (ER) | payer MEDICAID, SELFPAY ==
--- NOTE | 2024-07-13 19:06 | ED.GENADULT ---
HPI - General Adult General Stated complaint: Flu like symptoms Source: patient Mode of arrival: ambulatory Limitations: no limitations History of Present Illness ED Provider: Tam MARTÍNEZ HPI narrative: 43 year old female with pmh of pancreatic cyst and patellofemoral arthritis presenting with concerns of fatigue x past few days. Patient was recently tested positive at home for COVID, she would like to retest here today. She is experiencing lightheadedness, headaches, and myalgias. She admits to recent contacts with known COVID+. Just comes in for covid testing. Related Data Home Medications ?Medication ?Instructions ?Recorded ?Confirmed acetaminophen 500 mg tablet 1,000 mg PO Q6H PRN fever 08/02/22 06/22/24 aspirin 81 mg tablet,delayed 81 mg PO QAM 08/02/22 06/22/24 release furosemide 40 mg tablet 40 mg PO QAM 08/02/22 06/22/24 midodrine 10 mg tablet 10 mg PO BID 08/02/22 06/22/24 trazodone 100 mg tablet 100 - 150 mg PO BEDTIME 08/02/22 06/22/24 albuterol sulfate 90 mcg/actuation 2 puff inhalation Q6H PRN wheezing 11/25/23 06/22/24 aerosol inhaler (Ventolin HFA) nitroglycerin 0.4 mg sublingual 0.4 mg sublingual Q5M PRN Chest 11/25/23 06/22/24 tablet (Nitrostat) Pain clopidogrel 75 mg tablet 75 mg PO QAM 01/23/24 06/22/24 Previous Rx's ?Medication ?Instructions ?Recorded fluticasone propionate 50 1 spray intranasal Q12H #16 grams 03/19/21 mcg/actuation nasal spray,suspension (Flonase Allergy Relief) lidocaine 5 % topical patch 1 patch topical DAILY #15 ea 01/16/23 omeprazole 40 mg capsule,delayed 40 mg PO DAILY #30 caps 10/27/23 release Allergies Allergy/AdvReac Type Severity Reaction Status Date / Time lisinopril [LISINOPRIL] AdvReac Intermediate UPSET Verified 07/13/24 19:15 STOMACH Review of Systems Review of Systems: Yes all other systems are reviewed and are negative PMFSH Past Medical History Attestation statement: The following information was validated with the patient. 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 Oriented X3.? No acute distress.? Head: Normocephalic, atraumatic, no step-offs or deformities Eyes: Pupils equal, round and reactive to light.? Neck: Normal inspection.? Neck supple.? CVS: Normal heart rate and rhythm.? Pulses normal.? Respiratory: No respiratory distress.? Breath sounds normal.? Abdomen: Soft and nontender.? Skin: Skin warm and dry.? Normal skin color.? Normal skin turgor.? Extremities: No lower extremity edema.? No calf ttp. 5/5 strength to bilateral upper and lower extremities Neuro: Oriented X 3.? No motor deficit.? No sensory deficit. CN 2-12 intact Course Reevaluation(s) Reevaluation #1: Educated patient on diagnosis and treatment plan, answered all question, patient verbalizes understanding. At this time patient will be discharged home, advised to return with new or worsening symptoms. Educated on worrisome signs and symptoms and when to return. At this time I feel comfortable discharge home. Time: 19:15 Medical Decision Making Medical Decision Making [facility] Narrative: 43 year old female presenting with URI symptoms wanting to get tested for COVID PE - benign Hx and pe concerning for flu vs covid vs RSV. Unlikely PE, PNA, ACS, ARDS, metabolic derrangements. Plan - viral testing Differential Diagnosis Differential Diagnoses: The differential diagnosis associated with the presentation includes Hx and pe concerning for flu vs covid vs RSV. Unlikely PE, PNA, ACS, ARDS, metabolic derrangements. Admission/Observation Consideration of admission/observation: Escalation of care including admission/observation considered NA Lab Data [facility] Lab Attestation statement: I reviewed the patient's lab results. Chronic Conditions Patient?s care impacted by: Other Discharge Plan Discharge Clinical Impression: COVID-19 Patient Disposition: Home, Self-Care Instructions: COVID-19 (Coronavirus Disease 2019) (ED) Additional Instructions: Take your medications as prescribed. If you were prescribed antibiotics today, it is important that you take your medication to their entirety, do not skip any doses, do not finish them early. Today you tested positive for COVID-19. Take Ibuprofen or Tylenol as needed for fevers or body aches. Quarantine for 5 days and ensure you wear a mask. After 5 days you should wear a mask for 5 days after that. Practice social distancing and good hand hygiene. Drink plenty of fluids. Follow-up with your primary care provider this week. Return to the emergency department with new or worsening symptoms. In case of emergency call 911 You can purchase a pulse oximeter from your local pharmacy or grocery store, and monitor your oxygen saturation if it goes below 94% you should return to the emergency department for further evaluation. Prescriptions: No Action fluticasone propionate [Flonase Allergy Relief] 50 mcg/actuation spray,suspension 1 spray intranasal Q12H Qty: 16 0RF Rx Instructions: administer into each nostril lidocaine 5 % adhesive patch,medicated 1 patch topical DAILY Qty: 15 0RF Rx Instructions: leave on most painful area for up to 12 hrs albuterol sulfate [Ventolin HFA] 90 mcg/actuation HFA aerosol inhaler 2 puff INHALATION Q6H PRN (Reason: wheezing) nitroglycerin [Nitrostat] 0.4 mg Tablet, Sublingual 0.4 mg SUBLINGUAL Q5M PRN (Reason: Chest Pain) Rx Instructions: do not exceed 3 doses per episode clopidogrel 75 mg tablet 75 mg PO QAM omeprazole 40 mg capsule,delayed release(DR/EC) 40 mg PO DAILY Qty: 30 0RF trazodone 100 mg tablet 100 - 150 mg PO BEDTIME midodrine 10 mg tablet 10 mg PO BID aspirin 81 mg tablet,delayed release (DR/EC) 81 mg PO QAM furosemide 40 mg tablet 40 mg PO QAM acetaminophen 500 mg tablet 1,000 mg PO Q6H PRN (Reason: fever) Stand Alone Forms: Work/School Release Print Language: New Zealander
[2024-07-13 19:14] VITALS: BP 107/80; PULSE 96; RESP 20; TEMP 36.4; O2SAT 98; BMI 36.6
--- OUTSIDE RECORDS SUMMARY | 2024-07-13 19:25 | XMS_ITS ---
Author Organization [facility] Address [address] [place] [address] Care Team Providers Care Assistant Broker Name Role Phone Cristian CHAPARRO, Negra Primary Care Provider Unavail ramsey Soto Jr, José Miguel Sarabia [phone] REASON FOR VISIT GASTRIC WALL THICKENING, SPOT ON LIVER Encounters Encounter Location Date Provider Diagnosis [facility] [address] [place] [address] 01/29/2024 José Miguel Soto Jr PLAN OF TREATMENT Next Appt Details Provider Name:José Miguel weber Jr, 07/22/2024 01:35:00 PM, [address] [place] [address], [address], [place], [address],
--- OUTSIDE RECORDS SUMMARY | 2024-07-13 19:25 | XMS_ITS ---
Author Organization [facility] Address [address] [place] [address] Care Team Providers Care Shuttle Spotter Name Role Phone Cristian CHAPARRO, Negra Primary Care Provider Unavail ramsey Soto Jr, José Miguel Sarabia REASON FOR VISIT pathology MEDICATIONS Medication SIG (Take, Route, Fr equency, Duration) Notes Start Date End Date Status Omeprazole 40 MG TAKE 1 CAPSULE BY MO UTH EVERY DAY Oral for 30 days Active Encounters Encounter Location Date Provider Diagnosis [facility] [address] [place] [address] [place] [address] 02/05/2024 José Miguel Soto Jr PLAN OF TREATMENT Medication Medication Name Sig Start Date Stop Date Notes Omeprazole 40 MG TAKE 1 CAPSULE BY MO UTH EVERY DAY Oral for 30 days Next Appt Details Provider Name:José Miguel weber Jr, 07/22/2024 01:35:00 PM, [address] [place] [address], [address], [place], [address],
--- OUTSIDE RECORDS SUMMARY | 2024-07-13 19:25 | XMS_ITS | Patient Health Record ---
Author Organization [facility] Address [address] [facility] [address] [place] [address] Care Team Providers Care Service Station Console Operator Name Role Phone Negra Foster MD Primary Care Provider Unavail able José Miguel Soto Jr Unavailable Medardo Ledbetter Unavailable [phone] ALLERGIES Allergen (clinical drug ingredient) Drug/Non Drug Allergy documented on EMR Reaction Allergy Type Onset Date Status lisinopril Lisinopril Unknown Drug Allergy Activ e RESULTS Component Value Reference Range Notes Pathology Reviewed date:02/05/2024 08:27:57 AM Interpretation: Performing Lab:[facility], [address] [place] [phone] Notes/Report: REASON FOR REFERRAL Referring Provider First Name Negra Referring Provider Last Name Cristian Referring Provider Speciality Family Pra ctice Referred Organization [facility] Referred Provider José Miguel Soto Jr Referred Address [address] [place] [address],[place] [address] [place] [address], Referred Provider Specialty Gastroentero logy General Notes Felisa Alvarenga 023 02:22:45 PM EST > requested a [facility] for visit with Dr. Soto on [phone] Referral Priority Routine MEDICATIONS Medication SIG (Take, [...] CT scan, gastrointestinal tract (R93.3) Active confirmed [id number] VITAL SIGNS Temperature 98.0 degrees Fahrenheit 11/03/2023 Blood pressure diastolic 00 mm Hg 11/03/2023 Height 5 ft 6 in in 11/03/2023 Blood pressure systolic 000 mm Hg 11/03/2023 Weight 227 lb 4 oz lbs 11/03/2023 BMI 36.68 kg/m2 11/03/2023 Encounters Encounter Location Date Provider Diagnosis [facility] [address] [address] [place], [place] [phone] 11/28/2023 José Miguel Soto Jr [facility] Outpatient [address] [place], [place] [phone] 01/23/2024 José Miguel Soto Jr Abnormal MRI of abdomen R93.5 [facility] [address] [place] [address] 01/29/2024 José Miguel Soto Jr [facility] [address] [place] [address] 11/03/2023 José Miguel Soto Jr Abnormal CT scan, gastrointestinal tract R93.3 [facility] [address] [place] [address] 10/29/2023 Medardo Ledbetter [facility] [address] [place] [address] 11/24/2023 José Miguel Soto Jr [facility] [address] [place] [address] 12/02/2023 José Miguel Soto Jr [facility] [address] [place] [address] 02/05/2024 José Miguel Soto Jr [facility] [address] [place] [address] 03/31/2024 José Miguel Soto Jr ASSESSMENTS Encounter [...] Miguel weber Jr, 07/22/2024 01:35:00 PM, [address] [facility], [address], [place], [address], Insurance Providers Payer Name Payer Address Payer Phone Subscriber Number Group Number Insured Name Patient Relationship to Insured Coverage Start Date Coverage End Date MEDICA[employer] OF [employer] [address] [place] [phone] [id number] SAGASTUME HUONG Self - patient is the insured MEDICAL (GENERAL) HISTORY Medical History History ICD Code Coronary artery disease with history of CT. Status post PCI with stent placement x3. Ischemic cardiomyopathy, EF 40-45% by ec ho 2019 Constipation Hyperlipidemia Elevated body mass index Surgical History Surgery Date(Month/Year) Cholecystectomy 2021 Coronary artery stent placement x3
--- OUTSIDE RECORDS SUMMARY | 2024-07-13 19:25 | XMS_ITS ---
Author Organization [facility] Address [address] [place] [address] Care Team Providers Care Delta System Freight Car Cleaner Name Role Phone Cristian CHAPARRO, Negra Primary Care Provider Unavail ramsey Soto Jr, José Miguel Sarabia [phone] REASON FOR VISIT FYI/ NO SHOWED /NO RETURN CALL FOR MRI ORDER Encounters Encounter Location Date Provider Diagnosis [facility] [address] [facility] [address] [place] [address] 03/31/2024 José Miguel Soto Jr PLAN OF TREATMENT Next Appt Details Provider Name:José Miguel weber Jr, 07/22/2024 01:35:00 PM, [address] [place] [address], [address], [place], [address],
[2024-07-13 19:58] VITALS: BP 107/80; PULSE 96; RESP 20; TEMP 36.4; O2SAT 98
[2024-07-13 20:03] LABS: Influenza A PCR NEGATIVE (Negative); Influenza B PCR NEGATIVE (Negative); Resp Syncy Virus RNA Qual PCR NEGATIVE (Negative); SARS COV2 PCR INHOUSE NEGATIVE (Negative)
== END 2024-07-13 19:31 | disposition home or self-care (01) ==
PROVIDERS: Physician Assistant; Emergency Provider Emergency Medicine; PCP Internal Medicine
DX: U07.1 COVID-19 (principal); R42 Dizziness and giddiness; M79.10 Myalgia, unspecified site; R51.9 Headache, unspecified; Z79.899 Other long term (current) drug therapy; Z87.891 Personal history of nicotine dependence
CPT/HCPCS: 0241U; 96374; 96375; 99282; 99284

== ENCOUNTER 2024-09-06 12:22 | Outpatient (REF) | payer MEDICAID, SELFPAY ==
--- NOTE | ~2024-09-06 | XR_ITS ---
EXAMINATION: Bilateral knee series CLINICAL INFORMATION: Pain in left knee COMPARISON: None. TECHNIQUE: AP upright both knees. Additional lateral and patellofemoral view of the left knee FINDINGS: Right knee AP upright: The medial lateral compartments and surrounding bone and soft tissues are normal. Left knee: Medial compartment with marked joint space narrowing marginal osteophytes indicative of mild osteoarthritis. Lateral compartment normal. Lateral compartment: Normal. No effusion. XR/XR knee RT 1V IMPRESSION: RIGHT KNEE: Normal. LEFT KNEE: Mild osteoarthritis. Electronically signed by: Colton Kumar MD 09/11/2024 09:01 AM EDT
--- NOTE | ~2024-09-06 | XR_ITS ---
EXAMINATION: Bilateral knee series CLINICAL INFORMATION: Pain in left knee COMPARISON: None. TECHNIQUE: AP upright both knees. Additional lateral and patellofemoral view of the left knee FINDINGS: Right knee AP upright: The medial lateral compartments and surrounding bone and soft tissues are normal. Left knee: Medial compartment with marked joint space narrowing marginal osteophytes indicative of mild osteoarthritis. Lateral compartment normal. Lateral compartment: Normal. No effusion. XR/XR knee LT 3V IMPRESSION: RIGHT KNEE: Normal. LEFT KNEE: Mild osteoarthritis. Electronically signed by: Colton Kumar MD 09/11/2024 09:01 AM EDT
== END 2024-09-06 12:23 | disposition home or self-care (01) ==
LOC: HO.HOSX 12:22
PROVIDERS: Visit Provider Physician Assistant
DX: M17.12 Unilateral primary osteoarthritis, left knee (principal); M25.561 Pain in right knee
CPT/HCPCS: 20610; 73560; 73562; 99212; J1010; J2003

== ENCOUNTER 2024-09-06 13:20 | Outpatient (AMB) | payer MEDICAID, SELFPAY ==
--- NOTE | 2024-09-06 13:39 | A.OFFVIS_ITS ---
Vital Signs 09/06/24 13:50 Height 5 ft 6 in Weight 226 lb BMI 36.5 Intake Visit Reasons: OV Lt knee pain Intake Note: Kamille is a 43 year old female who presents to the office today for a follow up of left knee pain. Patient reports having constant pain at the anterior/lateral aspect of knee. Her pain travels up and down her leg. She has pain and tightness with flexion. State PT did not help with her pain. Denies numbness or tingling. Finds temporary relief with ibuprofen and Tylenol. Allergies lisinopril [LISINOPRIL] Adverse Reaction (Intermediate, Verified 09/06/24 13:53) UPSET STOMACH Medication List - Last Reconciled 09/06/24 by Carmelita Wade PA-C acetaminophen 1,000 mg PO Q6H PRN albuterol sulfate 90 mcg/actuation (Ventolin HFA) 2 puffs inhalation Q6H PRN aspirin 81 mg PO QAM celecoxib (Celebrex) 200 mg PO BID 30 days clopidogrel 75 mg PO QAM fluticasone propionate 50 mcg/actuation (Flonase Allergy Relief) 1 spray intr anasal Q12H furosemide 40 mg PO QAM lidocaine 5% 1 patch topical DAILY midodrine 10 mg PO BID nitroglycerin (Nitrostat) 0.4 mg sublingual Q5M PRN omeprazole 40 mg PO DAILY trazodone 100 - 150 mg PO BEDTIME HPI HPI OV Lt knee pain: Details: 43-year-old female who returns to the office today for a follow-up of left knee pain. She continues to have constant worsening pain at the anterior aspect and lateral aspect of her knee that radiates up and down her leg. Her pain is aggravated with going upstairs and at night. She also experiences tightness and pain with flexion. She denies any numbness or tingling. She has tried physical therapy with no relief. She finds transient relief with ibuprofen and Tylenol. 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 Tenderness along the medial and lateral joint line. Full ROM with crepitus. Negative Darren?s. No ligamentous laxity. NVI. ? Office Procedures Joint Injection/Aspiration Joint Injection/Aspiration Primary Site: left knee Prep: site was prepped using aseptic technique, ethochloride spray was applied and injection warnings given Injected: 80 mg of, DepoMedrol, with 8 mL of, 1% plain lidocaine and in the joint Approach Used: anterolateral Procedure: The patient tolerated the procedure well and there was some relief with the local anesthesia Coding 79078 - Glenohumeral/Tronchanteric Bursa/Intraarticular Procedure code (CPT) selection complete Assessment & Plan Assessment & Plan (1) Patellofemoral arthritis of left knee: Code(s): M17.12 - Unilateral primary osteoarthritis, left knee Category: Medical Plan We discussed options today, which include steroid injection. The patient did consent to move forward with the left knee injection, which was tolerated well. I recommended rest, ice, and elevation and OTC anti-inflammatories as needed for discomfort. If symptoms persist or worsen over the next 6-8 weeks, patient will contact the office, otherwise follow-up as needed. Orders: Orders XR knee RT 1V Today M25.561 - Pain in right knee XR knee LT 3V Today M25.562 - Pain in left knee Medications: New celecoxib (Celebrex) 200 mg PO BID 60 caps 3RF 30 days Patient Instructions: Scribed for Carmelita Wade PA-C, by Jeremy Lynn medical education specialist, on 09/06/2024 at 1:30 PM EST.? I, Carmelita Wade PA-C, have personally reviewed and agree with the information entered by the scribe. Coding Level of Care Code Est Pt Level 3 (53582) Complex EM visit Add On G2211 Diagnoses Patellofemoral arthritis of left knee M17.12 CPT Codes Coding - Joint 7: 58117 - Glenohumeral/Tronchanteric Bursa/Intraarticular ([id number])
[2024-09-06 13:50] VITALS: BMI 36.5
== END 2024-09-06 16:08 | disposition home or self-care (01) ==
PROVIDERS: PCP Internal Medicine; Visit Provider Physician Assistant
DX: M17.12 Unilateral primary osteoarthritis, left knee (principal)
CPT/HCPCS: 20610; 99214

== ENCOUNTER 2025-01-28 10:14 | Outpatient (REF) | payer MEDICAID, SELFPAY ==
--- NOTE | ~2025-01-28 | XR_ITS ---
EXAMINATION: XR FINGERS LEFT HISTORY: INJURY COMPARISON: There are no prior studies available for comparison. FINDINGS: Three views of the left 5th finger are submitted. Osseous mineralization is normal. There is no fracture or dislocation. There is moderate osteoarthritis of the DIP joint. The remaining joint spaces are maintained. The soft tissues are unremarkable. Incidental note is made of internal fixation of the distal radius. XR/XR finger LT min 2V IMPRESSION: No evidence of fracture of the left 5th finger. Moderate osteoarthritis of the DIP joint. Electronically signed by: Medarod Bear MD 01/28/2025 12:11 PM EDT
--- OUTSIDE RECORDS SUMMARY | 2025-01-28 11:31 | XMS_ITS | Patient Health Record ---
Author Organization [facility] Address [address] [place] [address] Care Team Providers Care Briar Cutter Name Role Phone Negra Foster MD Primary Care Provider Unavail able José Miguel Warren Jr Unavailable Allergies Allergen (clinical drug ingredient) Drug/Non Drug Allergy documented on EMR Reaction Allergy Type Onset Date Status lisinopril Lisinopril Unknown Drug Allergy Activ e Reason For Referral Referring Provider First Name Negra Referring Provider Last Name Cristian Referring Provider Speciality Family Pra ctice Referred Organization [facility] Referred Provider José Miguel Warren Jr Referred Address [address] [place] [address],[place] [address],[place], [place],[address], Referred Provider Specialty Gastroentero logy General Notes Felisa Alvarenga 024 10:15:55 AM EST > [place]QUESTED [place] REFERR[facility] FROM [facility] FOR VISIT WITH DR WARREN ON 11-25-2024 DX GASTRITIS. [phone] Referral Priority Routine Medications Medication SIG (Take, Route, Frequency, Duration) Notes [...] 5 HOURS LATER Oral for 30 Active Immunizations Vaccine Route Administration Date Status Comme nts Influenza Unknown 11/03/2023 Refused Social History Tobacco Use: Social History Observation Description Date Details (start date - stop date) Never Smoker NA - NA Tobacco Use/Smoking Question Answer Notes Patient is a nonsmoker Alcohol Screen Question Answer Notes Did you have a drink containing alcohol in the p ast year? No Points 0 Interpretation Negative Problems Problem Type SNOMED Code ICD Code Onset Dates Problem Status W/U Status Risk Notes Problem [id number] Abnormal CT scan , gastrointestinal tract (R93.3) Active confirmed Encounters Encounter Location Date Provider Diagnosis [facility] [address] [facility] [address] [place] [address] 02/05/2024 José Miguel Warren Jr [facility] [address] [facility] [address] [place] [address] 03/31/2024 José Miguel Warren Jr Plan Of Treatment Pending Test Test Name Order Date MRI ABD W&WO CONTRAST 11/03/2023 Future Test Test Name Order Date UPPER GI ENDOSCOPY 11/03/2023 Next Appt Details Provider Name:José Miguel weber Jr, 03/10/2025 02:55:00 PM, [address] [facility], [address], [place], [address], Insurance Providers Payer Name Payer Address Payer Phone Subscriber Number Group Number Insured Name Patient Relationship to Insured Coverage Start Date Coverage End Date MEDICAID OF [employer] [address] [place] [phone] [id number] HUONG SAGASTUME Self - patient is the insured Medical (General) History Medical History History ICD Code Coronary artery disease with history of [place]. Status post PCI with stent placement x3. Ischemic cardiomyopathy, EF 40-45% by ec 2019 Constipation Hyperlipidemia Elevated body mass index Surgical History Surgery Date(Month/Year) Cholecystectomy 2021 Coronary artery stent placement x3
--- OUTSIDE RECORDS SUMMARY | 2025-01-28 11:31 | XMS_ITS ---
Author Organization [facility] Address [address] [place] [address] Care Team Providers Care Compressor Station Operator Name Role Phone Cristian CHAPARRO, Negra Primary Care Provider Unavail ramsey Soto Jr, José Miguel Sarabia [phone] REASON FOR VISIT gastritis Encounters Encounter Location Date Provider Diagnosis [facility] [address] [place] [address] 11/25/2024 José Miguel Soto Jr Plan Of Treatment Next Appt Details Provider Name:José Miguel weber Jr, 03/10/2025 02:55:00 PM, [address] [facility] [facility], [address], [place], [address], Progress Notes * DESIREE SAGASTUMEOB: 2 (44 yo F)Acc No.[id number]:11/25/2024 Progress Notes Patient:?HUONG SAGASTUME Provider:?José Miguel Soto MD :1980???Age:43 Y???Sex:Female D ate:11/25/2024 Address:[address] [place] [phone] Pcp:Negra Foster MD Subjective: * Chief Complaints: * ???1. Gastritis. * Medical History:? Objective: * Vitals:? Assessment: Plan: * Treatment: * * The named appointment provid er may or may not be the originator of this progress note, and it is not deemed complete until electronically signed by the appointment provider. Sign off status: Pending * Provider:?José Miguel Soto MD Date:?0 11/25/2024 Generated for Catherine hardwick/Avila/Meron on:?01/28/2025 08:55 AM EDT
--- OUTSIDE RECORDS SUMMARY | 2025-01-28 11:31 | XMS_ITS ---
Author Organization [facility] Address [address] [place] [address] Care Team Providers Care Airbrush Painter Name Role Phone Cristian CHAPARRO, Negra Primary Care Provider Unavail ramsey Soto Jr, José Miguel Sarabia [phone] REASON FOR VISIT Patient presents today for gastritis Encounters Encounter Location Date Provider Diagnosis [facility] [address] [facility] [address] [place] [address] 07/22/2024 José Miguel Soto Jr Plan Of Treatment Next Appt Details Provider Name:José Miguel weber Jr, 03/10/2025 02:55:00 PM, [address] [place] [address], [address], [place], [address], Progress Notes * DESIREE SAGASTUMEOB: 2 (44 yo F)Acc No.[id number]:07/22/2024 Progress Notes Patient:?HUONG SAGASTUME Provider:?José Miguel Soto MD :1980???Age:43 Y???Sex:Female D ate:07/22/2024 Address:[address] [place], [place] [phone] Pcp:Negra Foster MD Subjective: * Chief Complaints: * ???1. Patient presents today for gastritis. * Medical History:? Objective: * Vitals:? Assessment: Plan: * Treatment: * * The named appointment provid er may or may not be the originator of this progress note, and it is not deemed complete until electronically signed by the appointment provider. Sign off status: Pending * Provider:?José Miguel Soto MD Date:?0 07/22/2024 Generated for Catherine hardwick/Avila/Meron on:?01/28/2025 08:55 AM EDT
--- OUTSIDE RECORDS SUMMARY | 2025-01-28 11:31 | XMS_ITS ---
Author Organization [facility] Address [address] [place] [address] Care Team Providers Care Utility Tender Carding Name Role Phone Cristian CHAPARRO, Negra Primary Care Provider Unavail ramsey Soto Jr, José Miguel Sarabia REASON FOR VISIT FYI/ NO SHOWED /NO RETURN CALL FOR MRI ORDER Encounters Encounter Location Date Provider Diagnosis [facility] [address] [place] [address] 03/31/2024 José Miguel Soto Jr Plan Of Treatment Next Appt Details Provider Name:José Miguel weber Jr, 03/10/2025 02:55:00 PM, [address], [address], [place], [address], Progress Notes * DESIREE SAGASTUMEOB: 2 (43 yo F)Acc No.[id number]:03/31/2024 Patient:?HUONG SAGASTUME :1980???Age:43 Y???Sex:Female Address:[address] [place] [address], [address] * true * Date:? Generated for Desmondi ronen/Avila/eTransmitting on:?01/28/2025 08:55 AM EDT
== END 2025-01-28 10:15 | disposition home or self-care (01) ==
LOC: HO.HHCX 10:14
PROVIDERS: Visit Provider Family Medicine
DX: S69.92XA Unspecified injury of left wrist, hand and finger(s), initial encounter (principal)
CPT/HCPCS: 73140

== ENCOUNTER → 2025-01-28 10:16 | Outpatient (BNV) | payer MEDICAID, SELFPAY | PROVIDERS: Visit Provider Radiology Diagnostic Radiology | DX: M19.042 Primary osteoarthritis, left hand (principal) | CPT/HCPCS: 73140 ==

== ENCOUNTER 2025-05-03 10:13 | Outpatient (REF) | payer MEDICAID, SELFPAY ==
--- NOTE | ~2025-05-03 | XR_ITS ---
EXAMINATION: XR FOOT, RIGHT CLINICAL INFORMATION: right foot pain COMPARISON: None available. TECHNIQUE: AP, lateral, and oblique views of the right foot. FINDINGS: No fracture, dislocation, or suspicious bone lesion. Normal bone mineralization. Normal alignment. Joint spaces are preserved. No significant arthropathy. Normal plantar arch. No significant joint effusion. Soft tissues appear normal. XR/XR foot RT min 3V IMPRESSION: Normal right foot. Electronically signed by: Bebo Bocanegra MD 05/03/2025 10:54 AM EDT
--- OUTSIDE RECORDS SUMMARY | 2025-05-03 11:42 | XMS_ITS | Encounter Summary ---
Author Organization [employer] Address [address] [facility] [address] [place] [address] Care Team Providers Care Diamond Die Polisher Name Role Phone Negra Foster MD Primary Care Provider + Encounter Details Date Type Department Care Team ([facility] Contact Info) Description 11/12/2022 Orders Only [facility] CHC MED & PEDS [address] [place] [address] Caridad Khanna LPN Social History Tobacco Use Types Packs/Day Years Used Date Smoking Tobacco: Never Assessed Comments Unknown Sex and Gender Information Value Date Recorded Sex Assigned at Female 09/16/2022 10:30 AM EDT Legal Sex Female 10:30 AM EDT Gender Identity Female 09/16/2022 10:30 AM EDT Sexual Orientation Straight 09/16/2022 10 :30 AM EDT documented as of this encounter Plan of Treatment Not on file documented as of this encounter Visit Diagnoses Not on filedocumented in this encounter Care Teams Diamond Die Polisher Relationship Specialty Start Date End Date Negra Foster MD [address] [place] [address] PCP - General Family Medicine 09/04/16 Matty Drake Collections TechnicianKicking Machine Operator 04/20/25 documented as of this encounter
== END 2025-05-03 10:14 | disposition home or self-care (01) ==
LOC: HO.HHCX 10:13
PROVIDERS: Visit Provider Internal Medicine
DX: M79.671 Pain in right foot (principal)
CPT/HCPCS: 73630

== ENCOUNTER → 2025-05-03 10:13 | Outpatient (BNV) | payer MEDICAID, SELFPAY | PROVIDERS: Visit Provider Radiology Diagnostic Radiology | DX: M79.671 Pain in right foot (principal) | CPT/HCPCS: 73630 ==

== ENCOUNTER 2025-05-19 15:03 | Outpatient (AMB) | payer MEDICAID, SELFPAY ==
--- OUTSIDE RECORDS SUMMARY | 2025-03-10 10:55 | XMS_ITS ---
Author Organization [facility] Address [address] [place] [phone] Care Team Providers Care Polisher Hand Name Role Phone Cristian CHAPARRO, Negra Primary Care Provider Unavail ramsey Soto Jr, José Miguel Sarabia REASON FOR VISIT Patient presents today for gastritis Encounters Encounter Location Date Provider Diagnosis [facility] [address] [place] [phone] 03/10/2025 José Miguel Soto Jr Plan Of Treatment No Information Progress Notes * DESIREE SAGASTUMEOB: 2 (44 yo F)Acc No.[id number]:03/10/2025 Progress Notes Patient: HUONG BARRAGAN Provider: Lavonne Soto MD :1980 A ge:44 Y S ex:Female Date:03/10/2025 Address:[address] [place], [place] [phone] Pcp:Negra Foster MD Subjective: * Chief Complaints: [...] 0 03/10/2025 Generated for Printi ng/Fadianeg/eTransmitting on: 0 05/19/2025 03:06 PM EDT
--- OUTSIDE RECORDS SUMMARY | 2025-05-19 15:07 | XMS_ITS | Encounter Summary ---
Author Organization [employer] Address [address] [facility] [address] [place] [address] Care Team Providers Care Service Director Name Role Phone Negra Foster MD Primary Care Provider + Encounter Details Date Type Department Care Team ([facility] Contact Info) Description 11/12/2022 Orders Only [facility] CHC MED & PEDS [address] [place] [address] Caridad Khanna LPN Social History Tobacco Use [...] on filedocumented in this encounter Care Teams Service Director Relationship Specialty Start Date End Date Negra Foster MD [address] [place] [address] PCP - General Family Medicine 09/04/16 Matty Drake Supervisor Agency AppointmentsElectronics System Mechanic 04/20/25 documented as of this encounter
[2025-05-19 15:10] VITALS: BMI 42.9
--- NOTE | 2025-05-19 15:10 | MHC.OFFVIS ---
Vital Signs 05/19/25 15:10 Height 5 ft 6 in Weight 266 lb BMI 42.9 Intake Visit Reasons: INJ-LT knee last inj 09/06/24 Intake Note: Kamille 44 yr old female presents today for her left knee pain O.A injection. States last injection from 09/06/24 helped relief pain and would like to repeat injection today. Allergies lisinopril (LISINOPRIL) Adverse Reaction (Intermediate, Verified 05/19/25 15:12) UPSET STOMACH Medication List - Last Reconciled 05/19/25 by Carmelita Wade PA-C acetaminophen 1,000 mg PO Q6H PRN albuterol sulfate 90 mcg/actuation (Ventolin HFA) 2 puffs inhalation Q6H PRN aspirin 81 mg PO QAM celecoxib (Celebrex) 200 mg PO BID 30 days clopidogrel 75 mg PO QAM fluticasone propionate 50 mcg/actuation (Flonase Allergy Relief) 1 spray intranasal Q12H furosemide 40 mg PO QAM lidocaine 5% 1 patch topical DAILY midodrine 10 mg PO BID nitroglycerin (Nitrostat) 0.4 mg sublingual Q5M PRN omeprazole 40 mg PO DAILY trazodone 100 - 150 mg PO BEDTIME HPI HPI INJ-LT knee last inj 09/06/24: Details: 44-year-old female returns to the office today for a follow-up left knee pain. She saw me back in August of 2024 and had an injection which she states was quite successful up until 5 months ago. She has difficulty with daily activities. 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 Tenderness along the medial and lateral joint line. Full ROM with crepitus. Negative Darren?s. No ligamentous laxity. NVI. ? Office Procedures AMB Joint Injection/Aspiration Joint Injection/Aspiration Primary Site: left knee Prep: site was prepped using aseptic technique, ethochloride spray was applied and injection warnings given Injected: 80 mg of, DepoMedrol, with 8 mL of, 1% plain lidocaine and in the joint Approach Used: anterolateral Procedure: The patient tolerated the procedure well and there was some relief with the local anesthesia Coding 76337 - Glenohumeral/Tronchanteric Bursa/Intraarticular Procedure code (CPT) selection complete Assessment & Plan Assessment & Plan (1) Patellofemoral arthritis of left knee: Code(s): M17.12 - Unilateral primary osteoarthritis, left knee Category: Medical Plan: We discussed options today, which include steroid injection. The patient did consent to move forward with the right knee injection, which was tolerated well.? I recommended rest, ice and elevation and OTC antiinflammatories prn for discomfort. If symptoms persist over the next 6-8 weeks, they will contact our office, otherwise, prn Coding Level of Care Code Est Pt Level 3 (12085) Complex EM visit Add On G2211 Diagnoses Patellofemoral arthritis of left knee M17.12 CPT Codes Coding - Joint 7: 45607 - Glenohumeral/Tronchanteric Bursa/Intraarticular ([id number])
== END 2025-05-19 15:35 | disposition home or self-care (01) ==
LOC: HO.HOS 15:04
PROVIDERS: Visit Provider Physician Assistant
DX: M17.12 Unilateral primary osteoarthritis, left knee (principal)
CPT/HCPCS: 20610; 99213

== ENCOUNTER → 2025-05-19 15:03 | Outpatient (BNVA) | payer MEDICAID, SELFPAY | PROVIDERS: Visit Provider Physician Assistant | DX: M17.12 Unilateral primary osteoarthritis, left knee (principal); M25.562 Pain in left knee | CPT/HCPCS: 20610; 99212; J1010; J2003 ==

== ENCOUNTER → 2025-06-24 08:24 | Outpatient (BNV) | payer MEDICAID, SELFPAY | PROVIDERS: Visit Provider Radiology Diagnostic Radiology | DX: K86.2 Cyst of pancreas (principal) | CPT/HCPCS: 74183 ==

== ENCOUNTER 2025-06-24 08:26 | Outpatient (REF) | payer MEDICAID, SELFPAY ==
--- OUTSIDE RECORDS SUMMARY | 2025-03-10 10:55 | XMS_ITS ---
Author Organization [facility] Address [address] [place] [address] Care Team Providers Care Roustabout Name Role Phone Cristian CHAPARRO, Negra Primary Care Provider Unavail ramsey Soto Jr, José Miguel Sarabia [phone] REASON FOR VISIT Patient presents today for gastritis Encounters Encounter Location Date Provider Diagnosis [facility] [address] [place] [address] 03/10/2025 José Miguel Soto Jr Plan Of Treatment No Information Progress Notes * DESIREE SAGASTUMEOB: 2 (44 yo F)Acc No.[id number]:03/10/2025 Progress Notes Patient: HUONG BARRAGAN Provider: Lavonne Soto MD :1980 A ge:44 Y S ex:Female Date:03/10/2025 Address:[address] [place], [place] [id number] Pcp:Negra Foster MD Subjective: * Chief Complaints: * 1 . Patient presents today for gastritis. * Medical History: Objective: * Vitals: Assessment: Plan: * Treatment: * * The named appointment provid er may or may not be the originator of this progress note, and it is not deemed complete until electronically signed by the appointment provider. Sign off status: Pending * Provider: Lavonne Soto MD Date: 03/10/2025 Generated for Printi ng/Fadianeg/eTransmitting on: 0 06/24/2025 08:39 AM EDT
--- NOTE | ~2025-06-24 | MR_ITS ---
EXAMINATION: MR ABDOMEN WITHOUT THEN WITH IV CONTRAST HISTORY: K86.2 - Cyst of pancreas COMPARISON: Comparison is made with the prior examination dated 05/24/2024. TECHNIQUE: Axial in and out of phase T1-weighted gradient echo, axial diffusion weighted, and axial and coronal HASTE T2 with fat saturation images were obtained through the abdomen. 3D MRCP Reconstructed and thin and thick slab images of the biliary tree were obtained. Subsequently, fat suppressed axial and coronal T1-weighted images were obtained after the intravenous administration of 10 mL Gadavist. FINDINGS: Liver: There is no loss of signal intensity in the liver on opposed phase imaging to suggest steatosis. There is no enhancing liver mass. The hepatic and portal veins are patent. There is no intrahepatic biliary dilatation. Gallbladder/biliary tree: The patient is status post cholecystectomy. The common bile duct measures 7-8 mm in diameter, likely within normal limits for a patient status post cholecystectomy.. No intraluminal filling defects are identified to suggest choledocholithiasis. Spleen: The spleen is unremarkable. Pancreas: Again seen is a cyst in the pancreatic tail which measures up to 1.6 cm in size. This is slightly larger than on the prior study (previously 1.3 cm). There is rim enhancement without evidence of solid internal enhancing components. The pancreatic duct is normal in caliber. Adrenals: The adrenal glands are unremarkable. Kidneys: The kidneys are unremarkable. There is no hydronephrosis. Lymph nodes: There is no retroperitoneal lymphadenopathy in the upper abdomen. Fluid: There is no ascites in the upper abdomen. Visualized bowel: The visualized small and large bowel loops are unremarkable in appearance. Visualized bones: The visualized bones demonstrate normal marrow signal intensity. MR/MR abdomen wo/w con IMPRESSION: Slight interval enlargement of the previously seen cyst in the pancreatic tail which now measures up to 1.6 cm. Continued follow-up is recommended with MRI in 6 months. Electronically signed by: Medardo Bear MD 06/24/2025 09:37 AM EDT
--- OUTSIDE RECORDS SUMMARY | 2025-06-24 08:39 | XMS_ITS | Encounter Summary ---
Author Organization [employer] Address [address] [facility] [address] [place] [address] Care Team Providers Care Newspaper Publisher Name Role Phone Negra Foster MD Primary Care Provider + Encounter Details Date Type Department Care Team ([facility] Contact Info) Description 11/12/2022 Orders Only [facility] CHC MED & PEDS [address] [place] [address] Caridad Khanna LPN Social History Tobacco Use [...] on filedocumented in this encounter Care Teams Newspaper Publisher Relationship Specialty Start Date End Date Negra Foster MD [address] [place] [phone] PCP - General Family Medicine 09/04/16 Matty Drake Lumber Yard WorkerInternal Control Consultant 04/20/25 documented as of this encounter
== END 2025-06-24 08:27 | disposition home or self-care (01) ==
LOC: HO.MRI 08:26
PROVIDERS: Visit Provider Surgery
DX: K86.2 Cyst of pancreas (principal)
CPT/HCPCS: 74183; A9585

== ENCOUNTER 2025-09-05 14:51 | Outpatient (AMB) | payer MEDICAID, SELFPAY ==
--- OUTSIDE RECORDS SUMMARY | 2024-11-25 11:35 | XMS_ITS ---
Author Organization [facility] Address [address] [place] [address] Care Team Providers Care Developmental Behavioral Physician Name Role Phone Cristian CHAPARRO, Negra Primary Care Provider Aki Soto Jr, José Miguel Sarabia [phone] REASON FOR VISIT gastritis Encounters Encounter Location Date Provider Diagnosis [facility] [address] [place] [address] 11/25/2024 José Miguel Soto Jr Plan Of Treatment No Information Progress Notes * DESIREE SAGASTUMEOB: 2 (44 yo F)Acc No.[id number]:11/25/2024 Progress Notes Patient: HUONG BARRAGAN Provider: Lavonne Soto MD :1980 A ge:43 Y S ex:Female Date:11/25/2024 Address:[address] [place], [place] [phone] Pcp:Negra Foster MD Subjective: * Chief Complaints: * 1 . Gastritis. * Medical History: Objective: * Vitals: Assessment: Plan: * Treatment: * * The named appointment provid er may or may not be the originator of this progress note, and it is not deemed complete until electronically signed by the appointment provider. Sign off status: Pending * Provider: Lavonne Soto MD Date: 0 11/25/2024 Generated for Desmondi ronen/Avila/eTransmitting on: 07:01 PM EDT
--- OUTSIDE RECORDS SUMMARY | 2025-03-10 10:55 | XMS_ITS ---
Author Organization [facility] Address [address] [place] [address] Care Team Providers Care Information Assurance Specialist Name Role Phone Cristian CHAPARRO, Negra Primary Care Provider Unavail ramsey Soto Jr, José Miguel Sarabia REASON FOR VISIT Patient presents today for gastritis Encounters Encounter Location Date Provider Diagnosis [facility] [address] [place] [address] 03/10/2025 José Miguel Soto Jr Plan Of Treatment No Information Progress Notes * DESIREE SAGASTUMEOB: 2 (44 yo F)Acc No.[id number]:03/10/2025 Progress Notes Patient: HUONG BARRAGAN Provider: Lavonne Soto MD :1980 A ge:44 Y S ex:Female Date:03/10/2025 Address:[address] [place], [place] [address] Pcp:Negra Foster MD Subjective: * Chief Complaints: [...] * Provider: Lavonne Soto MD Date: 0 03/10/2025 Generated for Printi ng/Fadianeg/eTransmitting on: 1 07:01 PM EDT
--- NOTE | 2025-09-05 14:53 | MHC.OFFVIS ---
Vital Signs 09/05/25 14:59 Height 5 ft 6 in Weight 266 lb BMI 42.9 Intake Visit Reasons: OV-LT knee last inj 09/06/24 Intake Note: Kamille 44 year old female who presents today for a follow up of left knee OA. At her last visit on 05/19/25 she was given an injection. Today patient reports injection did not provide her with any relief. States that she is now starting to have discomfort in her right knee. Allergies lisinopril (LISINOPRIL) Adverse Reaction (Intermediate, Verified 09/05/25 15:00) UPSET STOMACH Medication List - Last Reconciled 09/05/25 by Carmelita Wade PA-C acetaminophen 1,000 mg PO Q6H PRN albuterol sulfate 90 mcg/actuation (Ventolin HFA) 2 puffs inhalation Q6H PRN aspirin 81 mg PO QAM celecoxib (Celebrex) 200 mg PO BID 30 days clopidogrel 75 mg PO QAM fluticasone propionate 50 mcg/actuation (Flonase Allergy Relief) 1 spray intranasal Q12H furosemide 40 mg PO QAM lidocaine 5% 1 patch topical DAILY midodrine 10 mg PO BID nitroglycerin (Nitrostat) 0.4 mg sublingual Q5M PRN omeprazole 40 mg PO DAILY trazodone 100 - 150 mg PO BEDTIME HPI HPI OV-LT knee last inj 09/06/24: Details: 44 yo female returns to the office today for ongoing left knee pain. She has had an injection on 2 separate occasions in the left knee which she states were not very helpful. She continues to experience pain in the left knee which is along the anterior portion of the knee but also lateral aspect of the joint. She states she has locking and catching at times which does limit her ability to walk and perform activities. 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 Lateral retropatellar tenderness present. Full ROM with crepitus. Negative Darren?s. No ligamentous laxity. NVI. ? Office Procedures AMB Joint Injection/Aspiration Joint Injection/Aspiration Primary Site: left knee Prep: site was prepped using aseptic technique, ethochloride spray was applied and injection warnings given Injected: 40 mg of, with 3 mL of, 1% plain lidocaine, 0.25% bupivacaine, in the joint and decadron Approach Used: anterolateral Procedure: The patient tolerated the procedure well and there was some relief with the local anesthesia Coding 00373 - Glenohumeral/Tronchanteric Bursa/Intraarticular Procedure code (CPT) selection complete Assessment & Plan Assessment & Plan (1) Patellofemoral arthritis of left knee: Code(s): M17.12 - Unilateral primary osteoarthritis, left knee Category: Medical Plan: We discussed options today which included PT which she declined. I offered her a repeat injection vs gel. I also explained the potential benefit of pain mgmnt and discussing geniculate injections .She did consent to repeat steroid injection today which she tolerated well. I also ordered an MRI to see if there is any meniscal injury that may be causing her ongoing pain in the joint aside from her PF OA. Once the MRI is complete, I will contact her to discuss options whether continued conservative treatment vs potential knee scope. Patient does express understanding. All questions answered. Coding Level of Care Code Est Pt Level 3 (57139) Complex EM visit Add On G2211 Diagnoses Patellofemoral arthritis of left knee M17.12 CPT Codes Coding - Joint 7: 84964 - Glenohumeral/Tronchanteric Bursa/Intraarticular ([id number])
[2025-09-05 14:59] VITALS: BMI 42.9
--- OUTSIDE RECORDS SUMMARY | 2025-09-05 19:01 | XMS_ITS | Encounter Summary ---
Author Organization [employer] Address [address] [facility] [address] [place] [address] Care Team Providers Care Consumer Services Advisor Name Role Phone Negra Foster MD Primary Care Provider + Encounter Details Date Type Department Care Team ([facility] Contact Info) Description 02/10/2023 Orders Only [facility] CHC MED & PEDS [address] [place] [address] Caridad Khanna LPN Social History Tobacco Use [...] on filedocumented in this encounter Care Teams Consumer Services Advisor Relationship Specialty Start Date End Date Negra Foster MD [address] [place] [address] PCP - General Family Medicine 09/04/16 Matty Drake Complaint Evaluation SupervisorAssistant Spa Manager 04/20/25 documented as of this encounter
--- OUTSIDE RECORDS SUMMARY | 2025-09-05 19:01 | XMS_ITS | Patient Health Record ---
Author Organization [facility] Address [address] [place] [address] Care Team Providers Care Sas Etl Developer Name Role Phone Negra Foster MD Primary Care Provider Unavail able José Miguel Warren Jr Unavailable Allergies Allergen (clinical drug ingredient) Drug/Non Drug Allergy documented on EMR Reaction Allergy Type Onset Date Status lisinopril Lisinopril Unknown Drug Allergy Activ e Reason For Referral Referring Provider First Name Negra Referring Provider Last Name Cristian Referring Provider Speciality Family Pra ctice Referred Organization [facility] Referred Provider José Miguel Warren Jr Referred Address [address] [place] [address],[address],[place], [place],[address], Referred Provider Specialty Gastroentero logy General Notes Felisa Alvarenga 024 10:15:55 AM EST > REQUESTED A [place] REFERRAL FROM [facility] FOR VISIT WITH DR WARREN ON 11-25-2024 DX GASTRITIS. [phone] Referral Priority Routine Medications Medication SIG (Take, Route, Frequency, Duration) Notes Start Date End Date Status buPROPion HCl ER (SR) 150 MG TAKE 1 TABLET BY MOUTH TWICE DAILY IN THE MORNING AND IN THE EVENING Oral; Duration: 30 F3341,Unavailab le Active traZODone HCl 100 MG TAKE 1 TO 1 & 1/2 TABLETS BY MOUTH AT BEDTIME Oral; Duration: 30 G4700,Unavailab le Active Omeprazole 40 MG TAKE 1 CAPSULE BY MOUTH EVERY DAY Oral; Duration: 30 days Active Atorvastatin Calcium 80 MG TAKE 1 TABLET BY MOUTH AT BEDTIME Oral; Duration: 90 Active Furosemide 40 MG TAKE 1 TABLET BY MOUTH EVERY MORNING Oral; Duration: 90 I10,Unavailable Active Aspirin Adult Low Strength 81 MG TAKE 1 TABLET BY MOUTH EVERY MORNING Oral; Duration: 90 Z9189,Unavailab le Active Clopidogrel Bisulfate 75 MG TAKE 1 TABLET BY MOUTH EVERY MORNING Oral; Duration: 90 Active Midodrine HCl 10 MG TAKE 1 TABLET BY MOUTH TWICE DAILY. TAKE 1 DOSE IN THE MORNING & SECOND DOSE 5 HOURS LATER Oral; Duration: 30 Active Immunizations Vaccine Route Administration Date [...] Problem Status W/U Status Risk Notes Problem Imaging of gastrointestinal tract abnormal (850060778) Abnormal CT scan, gastrointestinal tract (R93.3) Active confirmed Encounters Encounter Location Date Provider Diagnosis [facility] [address] [facility] [address] [place] [address] 03/10/2025 José Miguel Warren Jr Plan Of Treatment Pending Test Test Name Order Date MRI ABD W&WO CONTRAST 11/03/2023 Future Test Test Name Order Date UPPER GI ENDOSCOPY 11/03/2023 Insurance Providers Payer Name Payer Address Payer Phone Subscriber Number Group Number Insured Name Patient Relationship to Insured Coverage Start Date Coverage End Date MEDICA[employer] OF [facility] [facility] [address] [place] [phone] [id number] HUONG SAGASTUME Self - patient is the insured Medical (General) History Medical History History ICD Code Coronary artery disease with history of MS. Status post PCI with stent placement x3. Ischemic cardiomyopathy, EF 40-45% by ec ho 2019 Constipation Hyperlipidemia Elevated body mass index Surgical History Surgery Date(Month/Year) Cholecystectomy 2021 Coronary artery stent placement x3
--- OUTSIDE RECORDS SUMMARY | 2025-09-05 19:01 | XMS_ITS | Encounter Summary ---
Author Organization [employer] Address [address] [facility] [address] [place] [address] Care Team Providers Care Fisher Swordfish Name Role Phone Negra Foster MD Primary Care Provider + Encounter Details Date Type Department Care Team ([facility] Contact Info) Description 01/09/2023 Orders Only [facility] CHC MED & PEDS [address] [place] [address] Caridad Khanna LPN Social History Tobacco Use [...] on filedocumented in this encounter Care Teams Fisher Swordfish Relationship Specialty Start Date End Date Negra Foster MD [address] [place] [address] PCP - General Family Medicine 09/04/16 Matty Drake Director Of Vital StatisticsGovernment Services Professional 04/20/25 documented as of this encounter
--- OUTSIDE RECORDS SUMMARY | 2025-09-05 19:01 | XMS_ITS | Encounter Summary ---
Author Organization [employer] Address [address] [facility] [address] [place] [address] Care Team Providers Care Back Digger Operator Name Role Phone Negra Foster MD Primary Care Provider + Encounter Details Date Type Department Care Team ([facility] Contact Info) Description 12/18/[address] [facility] MEDICINE [address] [place], [place] [phone] Maria Dolores Springer LPN Social History Tobacco Use Types Packs/Day [...] on file documented as of this encounter Procedures Procedure Name Priority Date/Time Associated Diagnosis Comments BI MAMMOGRAM SCREENING TOMOSYNTHESIS BILATERAL Routine 12/25/2022 12:30 PM EST documented in this encounter Results * BI Mammogram Screening Tomosynthesis Bilateral (12/25/2022 12:30 PM EST) Anatomical Region Laterality Modality Breast Bilateral Mammography 12/25/2022 12:3 0 PM EST Narrative 12/26/2022 5:30 PM EST [address] [place] [address] Mammography Report Signed Patient: Kamille Nation MR#: [id number] 41 : 1980 Acct:[id number] Age/Sex: 41 / F ADM Date: 12/25/22 Loc: MAMMO Attending Dr: Negra Foster MD Ordering Physician: Negra Foster MD Results: 1Ne gative Date of Service: 12/25/22 Follow Up: 1 Year From Orig ina Mammogram Procedure(s): MM tomosynthesis screening BI Accession Number(s): [id number] cc: Negra Foster MD EXAMINATION: MM SCREENING DIGITAL BREAST TOMOSYNTHESIS, BILATERAL CLINICAL INFORMATION: Screening. Asymptomatic. The lifetime risk of breast cancer based on the Tyrer-Cuzick Model is 8.1%. COMPARISON: Mammography: None TECHNIQUE: Digital breast tomosynthesis is performed in both the craniocaudal and mediolateral oblique views along with computer-aided detection (CAD). Synthesized 2D images are generated from the tomosynthesis. FINDINGS: There are scattered areas of fibroglandular density (ACR BI-RADS breast composition Category b). There are no significant masses, abnormal calcifications, or other abnormalities. MM/MM tomosynthesis screening BI IMPRESSION: No mammographic evidence of malignancy. ASSESSMENT: BI-RADS 1: Negative RECOMMENDATION: Routine annual mammography screening. This patient's information was entered into a reminder system with a target due date for their next mammogram. Dictated By: Aiden De La Rosa MD Signed By: <Electronically signed by Aiden De La Rosa MD in OV> 12/26/22 1727 DD/ 1230 TD/TT: Heel Washer Stringing Machine Operator: SK Procedure Note Donotuseinterpreter, Image - 12/26/2022 [place] [facility] [address] [place] [address] Mammography Report Signed Patient: Kamille NationMR#: [id number] 41 : 1980Acct:[id number] Age/Sex: 41 / FADM Date: 12/25/22 Loc: MAMMO Attending Dr: Negra Foster MD Ordering Physician: Negra Fosteresults: 1Ne gative Date of Service: 12/25/22Follow Up: 1 Year From Orig inal Mammogram Procedure(s): MM tomosynthesis screening BI Accession Number(s): [id number] cc: Negra Foster MD EXAMINATION: MM SCREENING DIGITAL BREAST TOMOSYNTHESIS, BILATERAL CLINICAL INFORMATION: Screening. Asymptomatic. The lifetime risk of breast cancer based on the Tyrer-Cuzick Model is 8.1%. COMPARISON: Mammography: None TECHNIQUE: Digital breast tomosynthesis is performed in both the craniocaudal and mediolateral oblique views along with computer-aided detection (CAD). Synthesized 2D images are generated from the tomosynthesis. FINDINGS: There are scattered areas of fibroglandular density (ACR BI-RADS breast composition Category b). There are no significant masses, abnormal calcifications, or other abnormalities. MM/MM tomosynthesis screening BI IMPRESSION: No mammographic evidence of malignancy. ASSESSMENT: BI-RADS 1: Negative RECOMMENDATION: Routine annual mammography screening. This patient's information was entered into a reminder system with a target due date for their next mammogram. Dictated By: Aiden De La Rosa MD Signed By: <Electronically signed by Aiden De La Rosa MD in OV> 12/26/22 1727 DD/ 1230 TD/TT: Heel Washer Stringing Machine Operator: MEGHNA [facility] External Provider IMG BI PROCEDURES Final Result documented in this encounter Visit Diagnoses Not on filedocumented in this encounter Care Teams Back Digger Operator Relationship Specialty Start Date End Date Negra Foster MD [address] [place] [phone] PCP - General Family Medicine 09/04/16 Matty Drake Carton Lettering Machine OperatorLabel Stamper 04/20/25 documented as of this encounter
--- OUTSIDE RECORDS SUMMARY | 2025-09-05 19:01 | XMS_ITS | Encounter Summary ---
Author Organization [employer] Address [address] [facility] [address] [place] [address] Care Team Providers Care Plastic Sheets Finishing Supervisor Name Role Phone Negra Foster MD Primary Care Provider + Encounter Details Date Type Department Care Team ([facility] Contact Info) Description 11/12/2022 Orders Only [facility] [address] [place] [address] Caridad Khanna LPN Social History Tobacco Use [...] on filedocumented in this encounter Care Teams Plastic Sheets Finishing Supervisor Relationship Specialty Start Date End Date Negra Foster MD [address] [place] [id number] PCP - General Family Medicine 09/04/16 Matty Drake Sawmill WorkerGarment Folder 04/20/25 documented as of this encounter
--- OUTSIDE RECORDS SUMMARY | 2025-09-05 19:02 | XMS_ITS | Encounter Summary ---
Author Organization [employer] Address [address] [facility] [address] [place] [address] Care Team Providers Care Painter Aircraft Name Role Phone Negra Foster MD Primary Care Provider + Reason for Visit * Reason Onset Date Comments Med Refill 08/23/2024 Encounter Details Date Type Department Care Team ([facility] st Contact Info) Description 08/23/2024 Refill [facility] [address] [place] [address] Negra Foster MD [address] [place] [address] Insomnia, unspecified type Social History Tobacco Use Types Packs/Day Years Used Date Smoking Tobacco: Never Smokeless Tobacco: Never Alcohol Use Standard Drinks/Week Comments Never 0 (1 standard drink = 0.6 oz pur e alcohol) Housing Stability Answer Date Recorded What is your housing situation today? I have mary anderson 09/15/[address] you li ve. Do you have problems with any of the following? None of the above 09/15/2023 Food Insecurity Answer Date Recorded Within the past 12 months, y ou worried that your food would run out before you got money to buy more: Never True 09/15/2023 Within the past 12 months,th e food you bought just didn't last and you didn't have enough money to get more: Never True Transportation Answer Date Recorded In the past 12 months, has l ack of transportation kept you from medical appts, meetings, work or from getting things needed for daily living? No 09/15/2023 Utilities Answer Date Recorded In the past 12 months, has t he electric, gas, oil or water company threatened to shut off services in your home? No 03/16/2024 Depression Answer Date Recorded Patient Health Questionnaire-2 Score 1 05/26/2023 Comments No Sex and Gender Information Value Date Recorded Sex Assigned at Female 09/16/2022 10:30 AM EDT Legal Sex Female 10:30 AM EDT Gender Identity Female 09/16/2022 10:30 AM EDT Sexual Orientation Straight 09/16/2022 10 :30 AM EDT documented as of this encounter Miscellaneous Notes * Telephone Encounter - Negra Foster MD - 08/24/2024 8:59 AM EDT Already sent * Telephone Encounter - Dariusz Ham - 08/23/2024 10:51 AM EDT TC from pt requesting medication refill. Medications needing refill : traZODone (Desyrel) 100 MG tablet To be sent to: [facility]/pharmacy [address] [place] [address] documented in this encounter Plan of Treatment Not on file documented as of this encounter Visit Diagnoses Diagnosis Insomnia, unspecified type documented in this encounter Care Teams Painter Aircraft Relationship Specialty Start Date End Date Negra Foster MD [address] [place] [id number] PCP - General Family Medicine 09/04/16 Matty Drake Air Lift OperatorPresser All Around 04/20/25 documented as of this encounter
--- OUTSIDE RECORDS SUMMARY | 2025-09-05 19:02 | XMS_ITS | Clinical Summary ---
Author Organization [employer] Address [address] [place] [address] Care Team Providers Care Drapery Supervisor Name Role Phone Negra Foster MD Primary Care Provider + Allergies Active Allergy Reactions Criticality Noted Date Comments Lisinopril High 07/12/2020 Other reaction(s): Nausea present Other Reaction(s): UPSET STOMACH Medications clopidogrel (Plavix) 75 MG tablet Take 1 tablet by mouth. 2 Active nitroglycerin (Nitrostat) 0.[address] 0.4 mg under the tongue. 9 Active furosemide (Lasix) 40 MG tabletIndications:P rimary hypertension TAKE 1 TABLET BY MOUTH EVERY MORNING 90 tablet 2 4 Active atorvastatin (Lipitor) 80 MG tablet TAKE 1 TABLET BY MOUTH AT BEDTIME 90 tablet 3 4 Active hydrOXYzine pamoate (Vistaril) 50 MG capsuleIndications: Anxiety,Primary insomnia Take 1 capsule (50 mg) by mouth every 6 (six) hours if needed for anxiety (insomnia/an xiety) for up to 10 days. 30 capsule 4 Active albuterol 108 (90 Base) MCG/ACT inhalerIndications: Bronchitis with asthma, subacute Inhale 2 puffs every 6 (six) hours if needed for wheezing. 18 g 3 4 Active Aspirin Low Dose 81 MG EC tabletIndications:A t high risk for cardiovascular disease TAKE 1 TABLET BY MOUTH EVERY MORNING 90 tablet 1 4 Active buPROPion SR (Wellbutrin SR) 150 MG 12 hr tabletIndications:R ecurrent major depressive disorder, in partial remission (CMS/HCC) TAKE 1 TABLET BY MOUTH TWICE DAILY IN THE MORNING AND IN THE EVENING 60 tablet 4 Active naproxen (Naprosyn) 500 MG tabletIndications:R ight foot pain Take 1 tablet (500 mg) by mouth 2 times daily. 30 tablet 5 Active traZODone (Desyrel) 100 MG tabletIndications:I nsomnia, unspecified type TAKE 1 TO 1 & 1/2 TABLETS BY MOUTH AT BEDTIME 90 tablet 5 Active Active Problems Problem Noted Date Diagnosed Date Right foot pain 05/03/2025 Assessment & Plan (05/03/2025 9:57 AM EDT): Patient here for a sick visit with c/o right anterior foot pain x 2 weeks in the absence of any injury, she describes the pain as moderate and exacerbated by walking. On exam there is no redness, no swelling, full ROM ankle There is a very discreet area of tenderness anterior right foot associated with a subtle bony prominence that is not palpated on the left foot. Plan: Plain films right foot, NSAIDS, Podiatry evaluation F/u with PCP if no improvement Mild asthma without complication 05/11/2024 Assessment & Plan (05/11/2024 10:47 AM EDT): - Abdominal pain, vomiting, and diarrhea 4 Patellofemoral arthritis of left knee 03/24/2024 Severe obesity (BMI 35.0-39.9) with comorbidity (CMS/HCC) 03/24/2024 Assessment & Plan (05/11/2024 10:49 AM EDT): - Discussed re weight reduction options including exercise, life style modifications, diet, referral to psych sales specialist. - Discussed re lower calorie intake, increase dietary fiber - declined nutrition referral - GLP 1 agonist medication, Semaglutide, not approved Constipation in female 03/24/2024 Heart failure with reduced ejection fraction, [place] CARRERO class II 03/24/2024 Cystic mass of pancreas 03/24/2024 Dyspnea 03/24/2024 Left shoulder pain 03/24/2024 Hyperglycemia 11/20/2023 Assessment & Plan (11/20/2023 2:07 PM EST): A1c within rage of IFG Counseled re more frequent low calorie/carb meals. Encouraged physical activity as tolerated. FU in 6 months. Encounter for preventive health examination 02/2024 Assessment & Plan (11/20/2023 1:47 PM EST): Discussed with patient re increase fresh fruit and vegetable intake. Counseled re moderate exercise as tolerated, up to 20min/d Patient feels safe at home. PAP smear up to date, next one due 2025 Mammogram up to date, next one due 12/2023 Eye exam will refer to ophthalmology CRC screen due at age 47 Labs up to date, will order TB test and Hepatitis profile as needed Vaccinations decline covid or flu IZ today, all other IZ are up date Dental visit up to date, reminded to make appointment w dentist ever 6 m Pancreatic cyst 11/20/2023 Overview (06/16/2024): 05/24 MRI abd showed stable pancreatic tail cyst. Needs fu in 1y. Assessment & Plan (11/20/2023 1:50 PM EST): Refer to general surgery for further evaluation I explained to her about the low chance of malignancy of the cysts and importance of close and complete FU Immunization declined 11/20/2023 Primary insomnia 11/20/2023 Assessment & Plan (05/11/2024 10:46 AM EDT): xxx Assessment & Plan (11/20/2023 1:50 PM EST): See anxiety Paresthesia of right foot 05/26/2023 Assessment & Plan (05/26/2023 11:47 AM EDT): On great toe only, most likely related to previous trauma order labs to r/o systemic disease fu PRN fu with me in 6 months discussed with pt regarding daily foot check and call back PRN unhealed lesions Exercise counseling 05/26/2023 Bronchitis with asthma, subacute 03/28/2023 Assessment & Plan (05/11/2024 10:47 AM EDT): - Assessment & Plan (03/28/2023 9:26 AM EDT): from viral bronchitis most likely, somewhat improving. prednisone 40 mg taper x2-3 weeks + tessalon qhs obtain results of recent cxr and [facility] ED note FU with me in 1-2 weeks for cough Use albuterol inhaler q6 hours for the next 3 days then taper down to PRN Class 2 obesity 03/19/2023 Assessment & Plan (05/26/2023 11:45 AM EDT): pt has tried multiple dietary approaches in the past, counseled regarding weight reduction to decrease morbidity and mortality espeically related to CHF and cardiovascular disease will check with insurance about starting her on semaglutide discussed with patient regarding administration, side effects and close monitoring refer to dieitian Discussed re weight reduction options including exercise, life style modifications, diet, referral to psych sales specialist. Discussed re lower calorie intake, increase dietary fiber FU with me for PE COVID-19 03/19/2023 Assessment & Plan (07/04/2023 7:19 AM EDT): 3 day of Sx, pos for Covid-19 today - rapid test. Flu negative. VS stable w no concerning physical exam -Supportive measurements advised. Pt has at home Tylenol and Teraflu. -Pt is at high risk due to her obesity, asthma, Hx of CAD. So recommended for antiviral therapy, however will hold on using Paxlovid due to risk of interactions w her Atorvastatin and Trazodone, but especially due to risk of decreasing Plavix effect, and given pt has Hx of CAD w PATRICIA. Will not use this Rx. Prescribed instead Molnupiravir 800 mg BID for 5 d (checked and no interaction w any of her Rx). Our pharmacist confirmed w her [facility] that [facility] carry the [facility]. Creatinine and LFTs wnl (12/2022). -Isolation for 5 d, hand hygiene, discussed w contacts for testing. -Alarm signs and Sx discussed w pt. -advised to get Bivalent booster in 2 to 3 weeks once feeling better Fever 03/19/2023 Folliculitis 03/19/2023 Generalized ischemic myocardial dysfunction 01/2023 Hyperlipidemia 03/19/2023 Low vision, both eyes 03/19/2023 Assessment & Plan (05/11/2024 10:50 AM EDT): - pt to reschedule appointment with [facility] Assessment & Plan (11/20/2023 1:49 PM EST): Refer to ophthalmology Nail discoloration 03/19/2023 Onychomycosis 03/19/2023 Shortness of breath 03/19/2023 Assessment & Plan (03/28/2023 9:26 AM EDT): Secondary to #1 Shoulder pain 03/19/2023 Heart failure 03/12/2023 Assessment & Plan (11/20/2023 2:07 PM EST): Stable, she will fu w [facility] cardiology every yr Assessment & Plan (05/26/2023 11:44 AM EDT): Seen by cardiology at [facility] 03/25/23 REcommended weight reduction COntinue Lasix 20mg + plavix + atorvastatin 80 + aspirin 81 Pt declined COvid booster today Assessment & Plan (03/12/2023 12:49 PM EDT): no recent episodes of CHF, continue Lasix and treatment for CAD counseled regarding increase exercise Counseled re low salt diet/increase moderate physical activity. Check home BP BIW and prn CP/CARRERO/PETTIT Non smoking patient. Chronic pain of both knees 03/12/2023 Assessment & Plan (05/11/2024 10:46 AM EDT): - has OA of both knees , followed by [facility] - failed PT, pt will call to reschedule f/u appointment with orthopedics - recommended weight reduction Assessment & Plan (11/20/2023 1:49 PM EST): Refer to PT Counseled regarding wt reduction and use tylenol prn Assessment & Plan (03/12/2023 12:49 PM EDT): visit to ED last month refer to PT use tylenol PRN Vitamin D deficiency 03/12/2023 Assessment & Plan (05/26/2023 11:46 AM EDT): complete vit d supplememtaion weekly x 3 weeks and fu vit d levels dec 2023 recommended outdoor exercise at least 15 minutes daily Assessment & Plan (03/12/2023 12:49 PM EDT): recommended to start vitamin d supplementation. Discharge from [facility] 09/22/2018 Constipation 04/24/2018 Anxiety 07/01/2017 Assessment & Plan (05/11/2024 10:49 AM EDT): - Assessment & Plan (11/20/2023 1:48 PM EST): Pt is doing well on Trazodone qHS, she wants to cut down on the medication. I will start her hydroxyzine qHS and she will start cutting down Trazodone on a prn basis. I explained to pt that neither Trazodone or hydroxyzine are medications that make addictions. Assessment & Plan (03/12/2023 12:47 PM EDT): currently seeing psychotherapy every 2 weeks continue trazodone qhs only pt feels afe at home and is able to reach out for safety continue to work same schedule FU with me prn Coronary arteriosclerosis 09/20/2016 Assessment & Plan (03/12/2023 12:48 PM EDT): pt is chest pain free LDL normal, not at goal yet. Continue atorvastatin, asprin, plavix and FU with cardiology Resolved Problems Problem Noted Date Diagnosed Date Resolved Date Chronic hepatitis C (CMS/HCC) 09/27/2016 05/11/2024 Overview (05/26/2023): Assessment & Plan (05/26/2023 11:47 AM EDT): s/p treatment more than 5 years ago, resolved Encounters Date Type Department Care Team Description 07/13/2025 Telephone [facility] [address] [place] [address] Negra Foster MD september recall 06/24/2025 Orders Only [facility] External Provider, [facility] from Last 3 Months Immunizations Immunization Administration Dates Next Due Influenza Injectable Quadriv alant Preservative Free IIV4 MDCK 12/07/2017 Influenza injectable quadriv alent IIV4 with preservative 09/22/2018,09/20/2016 Influenza, IIV3, injectable 12/03/2019, 1,01/03/2011 Pneumococcal Polysaccharide PPSV23 06/04/2015 Tdap 06/25/2023,07/01/2017 Social History Tobacco Use Types Packs/Day Years Used Date Smoking Tobacco: Never Passive Smoke Exposure: Never Smokeless Tobacco: Never Tobacco Cessation:Counseling Given: Not Answered Comments:Pt vapes Alcohol Use Standard Drinks/Week Comments Never 0 (1 standard drink = 0.6 oz pur e alcohol) Housing Stability Answer Date Recorded What is your housing situation today? I have mary justin 09/15/[address] you li [...] Recorded Patient Health Questionnaire-2 Score 1 05/26/2023 Internet Access Answer Date Recorded Internet Access Q1 Yes 12/21/2024 Internet Access Q2 Not on file 12/21/2024 Comments No Sex and Gender Information Value Date Recorded Sex Assigned at Female 09/16/2022 10:30 AM EDT Legal Sex Female 10:30 AM EDT Gender Identity Female 09/16/2022 10:30 AM EDT Sexual Orientation Straight 09/16/2022 10 :30 AM EDT Last Filed Vital Signs Vital Sign Reading Time Taken Comments Blood Pressure 110/80 05/03/2025 9:35 AM EDT Pulse 75 05/03/2025 9:35 AM EDT Temperature 36.2 C (97.1 F) 05/03/2025 9:35 AM EDT Respiratory Rate 20 05/03/2025 9:35 AM EDT Oxygen Saturation 98% 05/03/2025 9:35 AM EDT Inhaled Oxygen Concentration - - Weight 105 kg (232 lb) 05/03/2025 9:35 AM EDT Height 167.6 cm (5' 6 ) 05/03/2025 9:35 AM EDT Body Mass Index 37.45 05/03/2025 9:35 AM EDT Plan of Treatment Health Maintenance Due Date Last Done Comments HIV Screening 1980 Disability Screening 1981 Alcohol/Substance Use Screening 1993 Family Planning (PISQ) 1996 HPV Vaccines (1 - 3-dose series) 1996 Hepatitis B Vaccines (1 of 3 - 19+ 3-dose series) 2000 Pneumococcal Vaccine: Pediatrics (0 to 5 Years) and At-Risk Patients (6 to 49) Years (2 of 2 - PCV) 06/04/2016 06/04/2015 Depression Screening 05/26/2024 05/26/2023, 05/26/20 23 Mammogram 12/29/2024 12/29/2023, 02/0 06/2023, 12/25/2022 COVID-19 Vaccine ( season) 2025 04/11/2021, 03/21/2021 Influenza Vaccine (#1) 2025 , 09/22/2018, 12/07/2017, Additional history exists SDOH Screening 12/21/2025 12/21/2024 Cervical Cancer Screening 04/05/2026 HPV/Cotest 04/05/2026 04/05/2021 Pap Smear 04/05/2026 04/05/2021 Tobacco Screening 05/03/2026 05/03/2025 Lipid Panel 12/26/2027 12/26/2022, 08/23/2020 Zoster Vaccines (1 of 2) 2031 DTaP/Tdap/Td Vaccines (3 - Td or Tdap) 06/25/2033 06/25/2023, 07/01/2017 RSV Patients and Patients Aged 60 years or older (1 - 1-dose 75+ series) 2056 HIB Vaccines Aged Out No longer eligi ble based on patient's age to complete this topic Hepatitis A Vaccines Aged Out No long er eligible based on patient's age to complete this topic IPV Vaccines Aged Out No longer eligi ble based on patient's age to complete this topic Meningococcal B Vaccine Aged Out No l onger eligible based on patient's age to complete this topic Meningococcal Vaccine Aged Out No adam bassam eligible based on patient's age to complete this topic RSV under 20 months Aged Out No longe r eligible based on patient's age to complete this topic Rotavirus Vaccines Aged Out No longer eligible based on patient's age to complete this topic Procedures Procedure Name Priority Date/Time Associated Diagnosis Comments MR ABDOMEN W AND WO CONTRAST Routine 06/24/2025 8:15 AM EDT BI MAMMOGRAM SCREENING TOMOSYNTHESIS BILATERAL Routine 12/29/2023 1:14 PM EST LIPID PANEL, STANDARD Routine 12/26/2022 8:33 AM EST HPV MRNA E6/E7 Routine 04/05/2021 11:41 AM EDT THINPREP PAP Routine 04/05/2021 11:41 AM EDT from Last 3 Months or Most Recently Relevant to Health Maintenance Results * MR Abdomen w/ and w/o Contrast (06/24/2025 8:15 AM EDT) Anatomical Region Laterality Modality Abdomen Magnetic Resonan ce 06/24/2025 8:15 AM EDT Narrative 06/24/2025 9:40 AM EDT [place] [address] Magnetic Resonance Report Signed Patient: Kamille Arnold MR#: [id number] : 1980 Acct:[id number] Age/Sex: 44 / F ADM Date: 06/24/25 Loc: HO.MRI Attending Dr: Otilio Card MD Ordering Physician: Otilio Card MD Date of Service: 06/24/25 Procedure(s): MR abdomen wo/w con Accession Number(s): [id number] cc: Negra Foster MD; Physician,Unknown ; Otilio Card MD EXAMINATION: MR ABDOMEN WITHOUT THEN WITH IV CONTRAST HISTORY: K86.2 - Cyst of pancreas COMPARISON: Comparison is made with the prior examination dated 05/24/2024. TECHNIQUE: Axial in and out of phase T1-weighted gradient echo, axial diffusion weighted, and axial and coronal HASTE T2 with fat saturation images were obtained through the abdomen. 3D MRCP Reconstructed and thin and thick slab images of the biliary tree were obtained. Subsequently, fat suppressed axial and coronal T1-weighted images were obtained after the intravenous administration of 10 mL Gadavist. FINDINGS: Liver: There is no loss of signal intensity in the liver on opposed phase imaging to suggest steatosis. There is no enhancing liver mass. The hepatic and portal veins are patent. There is no intrahepatic biliary dilatation. Gallbladder/biliary tree: The patient is status post cholecystectomy. The common bile duct measures 7-8 mm in diameter, likely within normal limits for a patient status post cholecystectomy.. No intraluminal filling defects are identified to suggest choledocholithiasis. Spleen: The spleen is unremarkable. Pancreas: Again seen is a cyst in the pancreatic tail which measures up to 1.6 cm in size. This is slightly larger than on the prior study (previously 1.3 cm). There is rim enhancement without evidence of solid internal enhancing components. The pancreatic duct is normal in caliber. Adrenals: The adrenal glands are unremarkable. Kidneys: The kidneys are unremarkable. There is no hydronephrosis. Lymph nodes: There is no retroperitoneal lymphadenopathy in the upper abdomen. Fluid: There is no ascites in the upper abdomen. Visualized bowel: The visualized small and large bowel loops are unremarkable in appearance. Visualized bones: The visualized bones demonstrate normal marrow signal intensity. MR/MR abdomen wo/w con IMPRESSION: Slight interval enlargement of the previously seen cyst in the pancreatic tail which now measures up to 1.6 cm. Continued follow-up is recommended with MRI in 6 months. Electronically signed by: Medardo Bear MD 06/24/2025 09:37 AM EDT RP Dictated By: Medardo Bear MD Signed By: <Electronically signed by Medardo Bear MD in OV> 06/24/25936 DD/ 4 TD/TT: 06/24/25919 Vendor Management Associate: Procedure Note Donotuseinterpreter, Image - 06/24/2025 [place] [address] Magnetic Resonance Report Signed Patient: Kamille Arnold#: [id number] : 1980Acct:[id number] Age/Sex: 44 / FADM Date: 06/24/25 Loc: HO.MRI Attending Dr: Otilio Card MD Ordering Physician: Otilio Card MD Date of Service: 06/24/25 Procedure(s): MR abdomen wo/w con Accession Number(s): [id number] cc: Negra Foster MD; Physician,Unknown ; Otilio Card MD EXAMINATION: MR ABDOMEN WITHOUT THEN WITH IV CONTRAST HISTORY: K86.2 - Cyst of pancreas COMPARISON: Comparison is made with the prior examination dated 05/24/2024. TECHNIQUE: Axial in and out of phase T1-weighted gradient echo, axial diffusion weighted, and axial and coronal HASTE T2 with fat saturation images were obtained through the abdomen. 3D MRCP Reconstructed and thin and thick slab images of the biliary tree were obtained. Subsequently, fat suppressed axial and coronal T1-weighted images were obtained after the intravenous administration of 10 mL Gadavist. FINDINGS: Liver: There is no loss of signal intensity in the liver on opposed phase imaging to suggest steatosis. There is no enhancing liver mass. The hepatic and portal veins are patent. There is no intrahepatic biliary dilatation. Gallbladder/biliary tree: The patient is status post cholecystectomy. The common bile duct measures 7-8 mm in diameter, likely within normal limits for a patient status post cholecystectomy.. No intraluminal filling defects are identified to suggest choledocholithiasis. Spleen: The spleen is unremarkable. Pancreas: Again seen is a cyst in the pancreatic tail which measures up to 1.6 cm in size. This is slightly larger than on the prior study (previously 1.3 cm). There is rim enhancement without evidence of solid internal enhancing components. The pancreatic duct is normal in caliber. Adrenals: The adrenal glands are unremarkable. Kidneys: The kidneys are unremarkable. There is no hydronephrosis. Lymph nodes: There is no retroperitoneal lymphadenopathy in the upper abdomen. Fluid: There is no ascites in the upper abdomen. Visualized bowel: The visualized small and large bowel loops are unremarkable in appearance. Visualized bones: The visualized bones demonstrate normal marrow signal intensity. MR/MR abdomen wo/w con IMPRESSION: Slight interval enlargement of the previously seen cyst in the pancreatic tail which now measures up to 1.6 cm. Continued follow-up is recommended with MRI in 6 months. Electronically signed by: Medardo Bear MD 06/24/2025 09:37 AM EDT Dictated By: Medardo Bear MD Signed By: <Electronically signed by Medardo Bear MD in OV> 06/24/25 0937 DD/ TD/TT: 06/24/25 09 Vendor Management Associate: [facility] External Provider IMG MRI PROCEDURES Final Result * BI Mammogram Screening Tomosynthesis Bilateral (12/29/2023 1:14 PM EST) Anatomical Region Laterality Modality Breast Bilateral Mammography 12/29/2023 1:14 PM EST Narrative 01/15/2024 7:45 PM EST [facility] [address] [place] [address] Mammography Report Signed Patient: Kamille Arnold MR#: [id number] : 1980 Acct:[id number] Age/Sex: 42 / F ADM Date: 12/29/23 Loc: [facility] Attending Dr: Negra Foster MD Ordering Physician: Negra Foster MD Results: 1Ne gative Date of Service: 12/29/23 Follow Up: 1 Year From Orig inal Mammogram Procedure(s): MM tomosynthesis screening BI Accession Number(s): [id number] cc: Negra Foster MD EXAMINATION: MM SCREENING DIGITAL BREAST TOMOSYNTHESIS, BILATERAL CLINICAL INFORMATION: Screening. Asymptomatic. COMPARISON: Mammography: This study is compared with prior exams dating back to 2022. TECHNIQUE: Digital breast tomosynthesis is performed in both the craniocaudal and mediolateral oblique views along with computer-aided detection (CAD). Synthesized 2D images are generated from the tomosynthesis. FINDINGS: There are scattered areas of fibroglandular density (ACR BI-RADS breast composition Category b). There are no significant masses, abnormal calcifications, or other abnormalities. MM/MM tomosynthesis screening BI IMPRESSION: No mammographic evidence of malignancy. ASSESSMENT: BI-RADS BI-RADS 1 - Negative RECOMMENDATION: Routine annual mammography screening. 1 year F/U This examination should not preclude the clinical evaluation of a suspicious palpable abnormality. This patient's information was entered into a reminder system with a target due date for their next mammogram. Dictated By: Opal Bishop MD Signed By: <Electronically signed by Opal Bishop MD in OV> 01/15/241941 DD/ 1314 TD/TT: Vendor Management Associate: Procedure Note Donotuseinterpreter, Image - [facility] [address] [place], [place] [address] Mammography Report Signed Patient: Kamille ArnoldMR#: [id number] : 1980Acct:[id number] Age/Sex: 42 / FADM Date: 12/29/23 Loc: [facility] Attending Dr: Negra Foster MD Ordering Physician: Negra Foster MDResults: 1Ne gative Date of Service: 12/29/23Follow Up: 1 Year From Orig ina Mammogram Procedure(s): MM tomosynthesis screening BI Accession Number(s): [id number] cc: Negra Foster MD EXAMINATION: MM SCREENING DIGITAL BREAST TOMOSYNTHESIS, BILATERAL CLINICAL INFORMATION: Screening. Asymptomatic. COMPARISON: Mammography: This study is compared with prior exams dating back to 2022. TECHNIQUE: Digital breast tomosynthesis is performed in both the craniocaudal and mediolateral oblique views along with computer-aided detection (CAD). Synthesized 2D images are generated from the tomosynthesis. FINDINGS: There are scattered areas of fibroglandular density (ACR BI-RADS breast composition Category b). There are no significant masses, abnormal calcifications, or other abnormalities. MM/MM tomosynthesis screening BI IMPRESSION: No mammographic evidence of malignancy. ASSESSMENT: BI-RADS BI-RADS 1 - Negative RECOMMENDATION: Routine annual mammography screening. 1 year F/U This examination should not preclude the clinical evaluation of a suspicious palpable abnormality. This patient's information was entered into a reminder system with a target due date for their next mammogram. Dictated By: Opal Bishop MD Signed By: <Electronically signed by Opal Bishop MD in OV> 01/15/24 1942 DD/ 1314 TD/TT: Vendor Management Associate: Negra Foster MD IMG BI PROCEDURES Final Result * Lipid Panel, Standard (12/26/2022 8:33 AM EST) Cholesterol, Total 164 <200 mg/dL [facility] HDL Cholesterol 51 > OR = 50 mg/dL [facility] Triglycerides 104 <150 mg/dL [facility] LDL Cholesterol 93 mg/dL (calc) [facility] Comment: Reference range: <100 Desirable range <100 mg/dL for primary prevention; <70 mg/dL for patients with CHD or diabetic patients with > or = 2 CHD risk factors. LDL-C is now calculated using the Paul calculation, which is a validated novel method providing better accuracy than the Friedewald equation in the estimation of LDL-C. David MCLEOD et al. YAMILE. 2013;310(19): 9733-7252 (http://education.Soundrop/faq/TBJ060) Chol/HDLC Ratio 3.2 <5.0 (calc) [facility] Non-HDL Cholesterol 113 <130 mg/dL (calc) [facility] Comment: For patients with diabetes plus 1 major ASCVD risk factor, treating to a non-HDL-C goal of <100 mg/dL (LDL-C of <70 mg/dL) is considered a therapeutic option. 12/26/2022 8:33 AM EST 12/26/2022 8:34 AM EST Narrative [facility] - 01/01/2023 4:52 PM EST FASTING:YES FASTING: YES Negra Foster MD LAB BLOOD ORDERABLES Fin al Result [address], [place] [address] [employer] [address] [place] [address] (Nl2) [place] [address] * THINPREP PAP (04/05/2021 11:41 AM EDT) Clinical Information: REPEAT PREV ABN [facility] COMMENT SEE COMMENT [facility] Comment: EXPLANATORY NOTE: The Pap is a screening test for cervical cancer. It is not a diagnostic test and is subject to false negative and false positive results. It is most reliable when a satisfactory sample, regularly obtained, is submitted with relevant clinical findings and history, and when the Pap result is evaluated along with historic and current clinical information. 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 [facility] LMP: 03/19/21 [facility] Prev. BX: NONE GIVEN [facility] Prev. PAP: NIL 2013 [facility] SOURCE: None given [facility] Statement Of Adequacy: SEE COMMENT [facility] Comment: Satisfactory for evaluation. Endocervical/transformation zone component present. 04/05/2021 11:4 1 AM EDT Renuka MOLINA LAB PATHOLOGY ORDERABLES Final Result Performing Organization Address [facility] Co de Phone Number [facility] [address] * HPV mRNA E6/E7 (04/05/2021 11:41 AM EDT) HPV nRNA E6/E7 Not Detected Not Detected [facility] Comment: Methodology: Strategy Associate-Mediated Amplification This assay detects E6/E7 viral messenger RNA (mRNA) from 14 high-risk HPV types (16,18,31,33,35,39,45,51,52,56,58,59,66,68). The analytical performance characteristics of this assay have been determined by [employer]. The modifications have not been cleared or approved by the FDA. This assay has been validated pursuant to the CLIA regulations and is used for clinical purposes. For additional information, please refer to http://education.ENDOGENX/faq/KHU621i3 (This link if provided for information/ educational purposes only.) 04/05/2021 11:4 1 AM EDT Renuka MOLINA LAB BLOOD ORDERABLES Jessica l Result Performing Organization Address [facility] Co de Phone Number [facility] [address] from Last 3 Months or Most Recently Relevant to Health Maintenance Insurance [facility] C3 Care Teams Drapery Supervisor Relationship Specialty Start Date End Date Negra Foster MD [address] [place] [address] PCP - General Family Medicine 09/04/16 Matty Drake Supervisor CabinetmakerGauge Inspector 04/20/25
--- OUTSIDE RECORDS SUMMARY | 2025-09-05 19:02 | XMS_ITS | Encounter Summary ---
Author Organization [email or web address] Address [address] [facility] [address] [place] [address] Care Team Providers Care Culinary Director Name Role Phone Negra Foster MD Primary Care Provider + Reason for Visit * Reason Comments Med Refill Encounter Details Date Type Department Care Team ([facility] Contact Info) Description 09/13/2024 Refill [facility] [address] [place], [place] [phone] Name, MD Ruiz [address] [place] [address] Insomnia, unspecified type Social History Tobacco Use [...] type documented in this encounter Care Teams Culinary Director Relationship Specialty Start Date End Date Negra Foster MD [address] [place] [id number] PCP - General Family Medicine 09/04/16 Matty Drake Communications Electrician SupervisorSignal Engineer 04/20/25 documented as of this encounter
--- OUTSIDE RECORDS SUMMARY | 2025-09-05 19:02 | XMS_ITS | Encounter Summary ---
Author Organization [email or web address] Address [address] [facility] 7 [place] [address] Care Team Providers Care Mechanical Engineering Intern Name Role Phone Negra Foster MD Primary Care Provider + Reason for Visit * Reason Onset Date Comments Med Refill 08/20/2024 Encounter Details Date Type Department Care Team ([facility] st Contact Info) Description 08/20/2024 Refill [facility] [address] [place] [address] Negra Foster MD [address] [place] [address] Insomnia, unspecified type Social History Tobacco Use [...] type documented in this encounter Care Teams Mechanical Engineering Intern Relationship Specialty Start Date End Date Negra Foster MD [address] [place] [id number] PCP - General Family Medicine 09/04/16 Matty Drake Technical Delivery ManagerGas Turbine Powerplant Mechanic Helper 04/20/25 documented as of this encounter
== END 2025-09-05 16:21 | disposition home or self-care (01) ==
LOC: HO.HOS 14:51
PROVIDERS: Visit Provider Physician Assistant
DX: M17.12 Unilateral primary osteoarthritis, left knee (principal)
CPT/HCPCS: 20610; 99213

== ENCOUNTER → 2025-09-05 14:51 | Outpatient (BNVA) | payer SELFPAY | PROVIDERS: Visit Provider Physician Assistant | DX: M17.12 Unilateral primary osteoarthritis, left knee (principal) | CPT/HCPCS: 20610; 99212; J0665; J1100; J2003 ==